=== PATIENT | male | born 1955 | race Caucasian/White ===

== ENCOUNTER 2019-02-14 01:25 | Outpatient (CLI) | payer MEDICARE, BC, SELFPAY ==
[2019-02-14 08:39] LABS: HGB 14.6 g/dL (13.5-17.5); Mean Corp. HGB Concentration 33.2 g/dL (32.0-36.0); Mean Corpuscular Hemoglobin 30.7 pg (27.0-33.0); Mean Corpuscular Volume 92.4 fL (80-95); Mean Platelet Volume 9.8 fL (8.0-11.0); Platelet Count 247 x1000/uL (130-400); RBC 4.76 m/cumm (4.50-6.00); RBC Distribution Width 12.9 % (11.8-14.1); White Blood Cell Count 5.77 k/cumm (4.4-10.8)
[2019-02-14 09:59] LABS: ALT 22 U/L (16-63); AST 12 U/L (15-37); Albumin 3.6 g/dL (3.4-5.0); Alkaline Phosphatase 64 U/L (46-116); Anion Gap 6.5 mmol/L (3-11); BUN 11 mg/dL (7-18); Bilirubin, Total 1.1 mg/dL (0.2-1.0); CO2 29.5 mmol/L (21.0-32.0); CREATININE 0.94 mg/dL (0.70-1.30); Calcium 8.9 mg/dL (8.5-10.1); Chloride 106 mmol/L (98-107); Glucose 91 mg/dL (74-106); Potassium 4.3 mmol/L (3.5-5.1); Sodium 142 mmol/L (136-145); Total Protein 6.6 g/dL (6.4-8.2)
[2019-02-14 10:10] LABS: Calculated LDL 123 mg/dL; Cholesterol 190 mg/dL (<200); HDL Cholesterol 43 mg/dL (40-60); Triglyceride 120 mg/dL (<150)
== END 2019-02-14 01:45 ==
PROVIDERS: PCP Family Medicine; Visit Provider Family Medicine
DX: Z00.00 Encounter for general adult medical examination without abnormal findings (principal); N20.0 Calculus of kidney; Z85.828 Personal history of other malignant neoplasm of skin; Z13.220 Encounter for screening for lipoid disorders
CPT/HCPCS: 36415; 80053; 80061; 85027

== ENCOUNTER 2021-03-02 19:17 | Outpatient (REF) | payer MEDICARE, BC, SELFPAY ==
[2021-03-02 21:38] LABS: MCH 29.9 pg (27.0-33.0); MCHC 31.9 % (32.0-36.0); MCV 93.6 fL (80-95); MPV 10.8 fL (8.0-11.0); Platelet Count 221 10^3/uL (130-400); RBC 5.02 10^6/uL (4.36-5.78); RDW 12.8 % (11.8-14.1); RDW-SD 43.5 fL; WBC 6.06 10^3/uL (4.4-10.8)
[2021-03-02 21:49] LABS: ALT 27 U/L (16-63); AST 14 U/L (15-37); Albumin 4.1 g/dL (3.4-5.0); Alkaline Phosphatase 78 U/L (46-116); Anion Gap 7.1 mmol/L (3-11); BUN 11 mg/dL (7-18); Bilirubin, Total 1.1 mg/dL (0.2-1.0); CO2 31.9 mmol/L (21.0-32.0); CREATININE 0.9 mg/dL (0.70-1.30); Calcium 9.1 mg/dL (8.5-10.1); Calculated LDL 130 mg/dL (<100); Chloride 103 mmol/L (98-107); Cholesterol 202 mg/dL (<200); Glucose 99 mg/dL (74-106); HDL Cholesterol 51 mg/dL (40-60); Potassium 4.3 mmol/L (3.5-5.1); Sodium 142 mmol/L (136-145); Total Protein 7.4 g/dL (6.4-8.2); Triglyceride 105 mg/dL (<150)
[2021-03-02 22:19] LABS: Vitamin D 25 Total 56.3 ng/mL (30-100)
== END 2021-03-02 19:18 | disposition home or self-care (01) ==
LOC: NCHCN 19:17
PROVIDERS: PCP Family Medicine; Visit Provider Family Medicine
DX: N40.0 Benign prostatic hyperplasia without lower urinary tract symptoms (principal); Z13.220 Encounter for screening for lipoid disorders
CPT/HCPCS: 80053; 80061; 82306; 85027

== ENCOUNTER 2022-09-22 15:23 | Outpatient (REF) | payer MEDICARE, BC, SELFPAY ==
[2022-09-22 22:30] LABS: HGB 14.6 g/dL (13.5-17.5); MCH 30.6 pg (27.0-33.0); MCHC 33.2 % (32.0-36.0); MCV 92 fL (80-95); Platelet Count 213 10^3/uL (130-400); RBC 4.77 10^6/uL (4.36-5.78); RDW-SD 44.2 fL; WBC 5.82 10^3/uL (4.4-10.8)
[2022-09-22 22:43] LABS: ALT 30 U/L (16-63); AST 15 U/L (15-37); Alkaline Phosphatase 66 U/L (46-116); BUN 14 mg/dL (7-18); CREATININE 0.9 mg/dL (0.70-1.30); Calculated LDL 125 mg/dL (<100); Chloride 105 mmol/L (98-107); Cholesterol 205 mg/dL (<200); Estimated GFR 93.03 (mL/min/1.73m2); Glucose 96 mg/dL (74-106); HDL Cholesterol 52 mg/dL (40-60); Potassium 4.2 mmol/L (3.5-5.1); Sodium 141 mmol/L (136-145); Total Protein 7.4 g/dL (6.4-8.2); Triglyceride 143 mg/dL (<150)
[2022-09-22 23:02] LABS: Vitamin D 25 Total 61.4 ng/mL (30-100)
== END 2022-09-22 15:24 | disposition home or self-care (01) ==
LOC: NCHCN 15:23
PROVIDERS: PCP Family Medicine; Visit Provider Nurse Practitioner Family
DX: Z13.220 Encounter for screening for lipoid disorders (principal); N40.0 Benign prostatic hyperplasia without lower urinary tract symptoms; E55.9 Vitamin D deficiency, unspecified
CPT/HCPCS: 80053; 80061; 82306; 85027

== ENCOUNTER 2023-10-05 17:14 | Outpatient (REF) | payer MEDICARE, BC, SELFPAY ==
[2023-10-05 16:05] LABS: HCT 45.1 % (40.0-50.0); HGB 14.8 g/dL (13.5-17.5); MCH 30.4 pg (27.0-33.0); MCHC 32.8 % (32.0-36.0); MCV 93 fL (80-95); MPV 10.8 fL (8.0-11.0); Platelet Count 205 10^3/uL (130-400); RBC 4.87 10^6/uL (4.36-5.78); RDW 12.8 % (11.8-14.1); RDW-SD 43.4 fL; WBC 6.66 10^3/uL (4.4-10.8)
[2023-10-05 16:27] LABS: ALT 35 U/L (16-63); AST 18 U/L (15-37); Albumin 3.8 g/dL (3.4-5.0); Alkaline Phosphatase 72 U/L (46-116); Anion Gap 7.5 mmol/L (3-11); BUN 10 mg/dL (7-18); CO2 29.5 mmol/L (21.0-32.0); CREATININE 0.9 mg/dL (0.70-1.30); Calcium 8.9 mg/dL (8.5-10.1); Calculated LDL 111 mg/dL (<100); Chloride 101 mmol/L (98-107); Cholesterol 181 mg/dL (<200); Estimated GFR 92.45 (mL/min/1.73m2); Glucose 97 mg/dL (74-106); HDL Cholesterol 57 mg/dL (40-60); Potassium 4.5 mmol/L (3.5-5.1); Sodium 138 mmol/L (136-145); Total Protein 7.1 g/dL (6.4-8.2); Triglyceride 67 mg/dL (<150)
[2023-10-06 08:37] LABS: PSA, Screening 0.8 ng/mL (<=4.5)
== END 2023-10-05 17:15 | disposition home or self-care (01) ==
LOC: NCHCN 17:14
PROVIDERS: PCP Family Medicine; Visit Provider Nurse Practitioner Family
DX: Z00.00 Encounter for general adult medical examination without abnormal findings (principal)
CPT/HCPCS: 80053; 80061; 84153; 85027

== ENCOUNTER 2024-01-23 15:40 | Outpatient (CLI) | payer MEDICARE, BC, SELFPAY ==
--- NOTE | 2024-01-23 | DI.RAD_ITS ---
Exam(s) XR CHEST 2V PA LATERAL EXAM: XR CHEST 2V PA LATERAL CLINICAL HISTORY: FEVER, R50.9,COUGH,NEG COVID TESTS TECHNIQUE: 2D digital imaging was performed. Two views. COMPARISON: No exams were available for comparison FINDINGS: HEART: Normal size. Aorta: Not dilated. PULMONARY VASCULATURE: Normal. MEDIASTINUM: Unremarkable. LUNGS: Infiltrate seen medial left lower lobe. The right lung appears clear. PLEURAL SPACE: No pleural effusion or pneumothorax. BONE:Unremarkable for age. SOFT TISSUES: Unremarkable. IMPRESSION: Left lower lobe pneumonia. DATA REPOSITORY: RADIATION DOSE DELIVERED:
--- OUTSIDE RECORDS SUMMARY | 2024-01-23 15:47 | XMS_ITS | Clinical Summary ---
Author Organization [facility] Address One [facility] [place] [address] Care Team Providers Care Ripper Operator Name Role Phone Belen Bhagat MORGAN Primary Care Provider [phone] Allergies Active Allergy Reactions Criticality Noted Date Comments Codeine 07/12/2012 Medications Medication Sig Dispensed Refills Start Date End Date Status finasteride (PROSCAR) 5 mg tablet Take 5 mg by mouth daily. Active VIT C/E/ZN/COPPR/LUTEI N/ZEAXAN (PRESERVISION AREDS 2 ORAL) Take by mouth 2 times daily. Active tamsulosin (Flomax) 0.4 mg capsule Take 1 capsule by mouth 2 times daily. 180 tablet 3 04/08/2023 Active Additional Information Patient taking differently: 0.8 mgOral 2 TIMES DAILY, Reported on 08/24/2023 Active Problems Problem Noted Date Diagnosed Date Renal stone 02/24/2017 History of basal cell carcinoma 12/23/2016 Open-angle glaucoma 08/27/2015 Assessment & Plan (04/15/2017 11:53 AM EST): Assessment: No progressive glaucoma damage on current medical therapy OCT not done today as line was way too long and already waited a long time Plan: Continue present meds: * Cosopt left eye 2 times daily * Xalatan left eye nightly * Lotemax left eye 2 times daily Follow-up in 6 more months with repeat Marie Visual Field and Optical Coherence Tomography - with Dr Payne's group back in [place] - we should have a new glaucoma provider here by the summer if needed in the future Follow-up with Dr Rubin to re-assess retina and make sure no tears in right eye since he had a retinal detachment in 2006 after that cataract surgery Assessment & Plan (10/27/2016 10:28 AM EDT): Assessment: No progressive glaucoma damage on current medical therapy Eye pressure higher than usual both eyes mostly likely due to prednisolone drops just stopped in right eye after cataract surgery Plan: Continue present meds: - Cosopt left eye 2 times daily, Xalatan left eye nightly, Lotemax left eye 2 times daily Follow-up in 6 more months with repeat Marie Visual Field and Optical Coherence Tomography Assessment & Plan (04/01/2016 5:34 PM EST): Assessment: No progressive glaucoma damage on current medical therapy Plan: Continue present meds Follow-up in 6 more months with repeat Marie Visual Field and Optical Coherence Tomography Assessment & Plan (10/10/2015 1:16 PM EDT): Assessment: POAG OS - less irritation after drop changes and IOP is much improved Plan: Continue current medications Follow up in 6 mos HVF / OCT Assessment & Plan (08/27/2015 3:19 PM EDT): Assessment: Glaucoma OS - eye irritation due to all drops Plan: D/C Combigan and start Cosopt BID OS, d/c Dorzolomide, d/c Lumigan and start Latanaprost OS qhs Continue Lotemax OS BID (may not need to be on Lotemax anymore if new drop regimen is successful with IOP control, will try to d/c at next visit) Pt states has tried Diamox in past - will not use due to hx of kidney stones Follow up in 6 wks IOP s/p med changes AK (actinic keratosis) 12/31/2014 Lower urinary tract symptoms (LUTS) 08/06/2014 Nephrolithiasis 08/06/2014 Visit for suture removal 12/27/2013 Basal cell carcinoma 07/25/2012 Dermatofibroma 07/12/2012 Encounters Date Type Department Care Team Description 12/06/2023 9:15 AM EDT Office Visit Dermatology at [address] [place] [id number] Cortez Bey MD Venous gray 12/06/2023 Travel from Last 3 Months Family History Medical History Relation Comments Cancer Father Cataracts Father Heart Disease Father Thyroid Disease Mother Retinal Detachment Sister Thyroid Disease Sister Amblyopia Neg Hx Diabetes Neg Hx Glaucoma Neg Hx Hypertension Neg Hx Macular Degeneration Neg Hx Relation Status Comments Father Mother Sister Social History Tobacco Use Types Packs/Day Years Used Date Smoking Tobacco: Never Smokeless Tobacco: Never Alcohol Use Standard Drinks/Week Comments Yes 0 (1 standard drink = 0.6 oz pur e alcohol) Sex and Gender Information Value Date Recorded Sex Assigned at Not on file Gender Identity Not on file Sexual Orientation Not on file Last Filed Vital Signs Vital Sign Reading Time Taken Comments Blood Pressure 123/78 08/24/2023 9:55 AM EDT Pulse 69 08/24/2023 9:55 AM EDT Temperature 36.7 ??C (98.1 ??F) 04/19/2017 1:33 PM ES T Respiratory Rate 16 02/24/2017 11:00 AM EST Oxygen Saturation 97% 04/19/2017 1:33 PM EST Inhaled Oxygen Concentration - - Weight 88.5 kg (195 lb) 02/24/2017 6:41 AM EST Height 185.4 cm (6' 1) 02/24/2017 6:41 AM EST Body Mass Index 25.73 02/24/2017 6:41 AM EST Plan of Treatment Upcoming Encounters Date Type Department Care Team (Late st Contact Info) Description 01/25/2025 8:15 AM EDT Office Visit Dermatology at [address] [place] [phone] Cortez Bey MD [address] [facility], [place] [address] Health Maintenance Due Date Last Done Comments CT Colonography 1955 Colonoscopy 1953 Colorectal Cancer Screening 1955 FIT DNA 1953 FIT 1955 Sigmoidoscopy (10 year) with FIT yearly 1955 Sigmoidoscopy 1955 Hepatitis C Screening 10/07/1971 Lipid Screening 10/07/1971 Tetanus/Diphtheria/Pertussis Vaccines (1 - Tdap) 10/06 Zoster vaccine (1 of 2) 10/07/2003 Advance Directive 2008 Pneumoccocal Vaccine: 65+ (1 of 1 - PCV) 2018 Covid-19 Vaccine (1 - season) 2023 Influenza (Flu) vaccine (1 o f 1 - Influenza standard series) 11/27/2023 Diabetes Screening (HgbA1C or Glucose) Discontinued Medical Devices Implanted Type Area Doctor Of Naturopathic Medicine Device Identifier Shelf Expiration Date Model / Serial / Lot Stent,Contour -[id number] cm ([id number]) - [id number] Implanted:Qty : 1 on 02/24/2017 by Shantanu Goodman Jr., MD at [facility] IMPLANTS Left: Ureter DO NOT USE [employer] - [id number] 10/02/2019 [facility]-600-R T1 / . / [id number] Procedures Procedure Name Priority Date/Time Associated Diagnosis Comments BASIC METABOLIC PANEL STAT 02/24/2017 6:26 AM EST Nephrolithiasis from Last 3 Months or Most Recently Relevant to Health Maintenance Results * Basic Metabolic Panel (non-fasting) (02/24/2017 6:26 AM EST) Glucose 96 65 - 199 mg/dL [facility] Comment:Diabetes: >=200 mg/d L plus symptoms Blood Urea Nitrogen 13 10 - 20 mg/dL [facility] Creatinine 0.91 0.80 - 1.50 mg/dL [facility] Sodium 141 135 - 145 mmol/L [facility] Potassium 4.1 3.5 - 5.0 mmol/L [facility] Comment: Please note: ??Patients with WBC >100,000 may have falsely elevated Potassium levels. ??For accurate Potassium quantification in these patients send serum separator tube (gold top) for subsequent determinations. ??Contact the Clinical Chemistry Laboratory if there are any questions. Chloride 101 98 - 107 mmol/L [facility] Carbon Dioxide 29 22 - 31 mmol/L [facility] Anion Gap 11 5 - 15 mmol/L [facility] Calcium 9.3 8.5 - 10.5 mg/dL [facility] Est Glomerular Filtration Rate >60 >=60 [facility] Comment: The reported eGFR should be multiplied by 1.2 for patients. The MDRD is not an appropriate measure of renal function for patients with body mass extremes or in patients with acute kidney failure. http://VipVenta/DHnkdep http://VipVenta/DHMCnkf Blood specimen (specimen) 02/24/2017 6:26 AM EST 02/24/2017 6:34 AM EST Narrative Resulting Agency Comment Spec In Lab Shantanu Goodman Jr., MD CHEMISTRY ORDERABL ES [facility] [place] [address] from Last 3 Months or Most Recently Relevant to Health Maintenance Advance Directives * Full Code (Latest Code Status on File) Date Activated Date Inactivated Comments 02/24/2017 6:28 AM 02/24/2017 3:01 PM Question Answer Comments Does patient have capacity to make decision: Yes Care Teams Ripper Operator Relationship Specialty Start Date End Date Belen Bhagat APRN [address] [place] [address] PCP - General Family Medicine 01/20/23
--- OUTSIDE RECORDS SUMMARY | 2024-01-23 15:47 | XMS_ITS ---
Author Organization [facility] Address One [facility] [place] [address] Care Team Providers Care Toggler Name Role Phone Belen Bhagat APRN Primary Care Provider [phone] Active Problems Problem Noted Date Diagnosed Date [...] - with Dr Payne's group back in [place] - we should have a new glaucoma [...] 12/27/2013 Basal cell carcinoma 07/25/2012 Dermatofibroma 07/12/2012 Current Oncology Plans No current plan information found. Past Plans No past plan information found. Radiation Treatments * No radiation treatments are documented for this patient in [facility]. Treatments may have been administered in another system. Lifetime Dose Tracking * Chemical Lifetime Dose Automatic Entry Manual Entr y DLP (Dose Length Product) 401 mGy-cm 401 mGy-cm 0 mGy-cm CTDI (CT Dose Index) Min 9.93 mGy 9.93 mGy 0 m Gy CTDI (CT Dose Index) Max 9.93 mGy 9.93 mGy 0 m Gy
--- OUTSIDE RECORDS SUMMARY | 2024-01-23 15:48 | XMS_ITS | Encounter Summary ---
Author Organization [facility] Address [place] [address] Care Team Providers Care Rn Float Name Role Phone Susan Fernández MD Primary Care Provider [phone] Encounter Details Date Type Department Care Team (Latest Contact Info) Description 10/27/2016 1:14 PM EDT - 10/27/2016 11:59 PM EDT Hospital En[place] [address] Carley Goodman Jr., MD [facility] [place] [address] Nephrolithiasis Discharge Disposition: Home Social History Tobacco Use Types Packs/Day Years Used Date Smoking Tobacco: Never Alcohol Use Standard Drinks/Week Comments Yes 0 (1 standard drink = 0.6 oz pur e alcohol) Sex and Gender Information Value Date Recorded Sex Assigned at Not on file Gender Identity Not on file Sexual Orientation Not on file documented as of this encounter Medications at Time of Discharge Medication Sig Dispensed Refills Start Date End Date finasteride (PROSCAR) 5 mg tablet Take 5 mg by mouth daily. cephalexin (KEFLEX) 500 mg Capsule Take 1 capsule by mouth 4 times daily for 3 days. 12 capsule 02/24/2017 02/27/2017 oxyCODONE (ROXICODONE) 5 mg Tablet Take 1 tablet by mouth every 4 hours as needed for Pain. 30 tablet 02/24/2017 04/15/2017 gatifloxacin (ZYMAXID) 0.5 % Drops INSTILL 1 DROP IN THE RIGHT EYE FOUR TIMES A DAY 0 09/04/2016 02/23/2017 ketorolac tromethamine (ACULAR) 0.5 % Drops 09/03/2016 017 prednisoLONE acetate (PRED FORTE) 1 % Drops, Suspension 09/03/2016 02/23/2017 latanoprost (XALATAN) 0.005 % DropsIndications:Primary open angle glaucoma of left eye, mild stage Place 1 drop into the left eye nightly. 2.5 mL 11 09/01/2016 01/20/2023 dorzolamide-timolol (COSOPT) 22.3-6.8 mg/mL DropsIndications:Primary open-angle glaucoma, left eye, mild stage Place 1 drop into the left eye 2 times daily. 20 mL 11 04/01/2016 05/22/2017 loteprednol (LOTEMAX) 0.5 % Drops, Suspension Place 1 drop into the left eye 2 times daily. 10 mL 3 04/01/2016 05/22/2017 tamsulosin (FLOMAX) 0.4 mg capsule Take 0.4 mg by mouth daily. 04/25/2002 01/20/2023 documented as of this encounter Plan of Treatment Upcoming Encounters Date Type Department Care Team (Late st Contact Info) Description 01/25/2025 8:15 AM EDT Office Visit Dermatology at [place] [address] [facility] [place] [address] Cortez Bey MD [address] [facility] [address], [place] [address] documented as of this encounter Procedures Procedure Name Priority Date/Time Associated Diagnosis Comments US RETROPERITONEAL COMPLETE Routine 10/27/2016 2:10 PM EDT Nephrolithiasis documented in this encounter Results * US Retroperitoneal Complete (10/27/2016 2:10 PM EDT) Anatomical Region Laterality Modality Abdomen Ultrasound 10/27/2016 2:06 PM EDT Impressions 10/27/2016 3:04 PM EDT ??1. Multiple nonobstructing calculi seen in the left kidney, the largest of whichmeasures 1.8 2. No renal calculi seen in the right kidney.3. Incidental right hepatic lobe simple cyst. I have personally reviewed the image(s) and the residents interpretation andagree with the findings, Eliseo Truong at 10/27/2016 2:56 PM ? Eliseo Truogn MD Electronically Signed Final Report ?? 10/27/2016 03:03 pm Narrative 10/27/2016 3:04 PM EDT Renal ? (Signed Final 10/27/2016 03:03 pm) PATIENT INFO: ID #: ? [id number] ?: ??[birth year] (61 yrs) Name: ? JERAD JAUREGUI ? Visit Date: 10/27/2016 02:06 pm PERFORMED BY: Performed By: ? Kristian Perez RDMS Attending: ?Alexi CARIAS, Eliseo Ko. Resident: ? Sumeet Levy MD Referred By: ?CARLEY GOODMAN Location: ? [place] SERVICE(S) PROVIDED: ??URETRO - Retroperitoneal Complete - [id number] ? [id number] INDICATIONS: ??? stones COMPARISON: Prior CT Scan (03/16/16) and prior US (09/01/2015). RIGHT KIDNEY: Size (cm) ?L: ??10.5 Cortical Thickness: ?Normal Cortical Echogenicity: ?? Normal Hydronephrosis: ?No sonographic evidence LEFT KIDNEY: Size (cm) ?L: ??10.4 Cortical Thickness: ?Normal Cortical Echogenicity: ?? Normal Hydronephrosis: ?No sonographic evidence Comment: ?Two non-obstructing renal calculi seen, largest ? measuring 19 mm seen in the mid pole.. URINARY BLADDER: Pre-void (cm) ? L: ??3.1 ? AP: ??2.3 ? TV: ??4.7 Vol (ml): ?17.5 Comment: ?Not distended, limited views. ADDITIONAL FINDINGS: Simple liver cyst seen in the right lobe measuring 1.6 x 1.6 x 1.5 cm. Procedure Note Eliseo Truong MD - 10/27/2016 Renal (Signed Final 10/27/2016 03:03 pm) PATIENT INFO: ID #: [id number] : [birth year] (61 yrs) Name: JERAD JAUREGUI Visit Date: 10/27/2016 02:06 pm PERFORMED BY: Performed By: Kristian Perez RDMS Attending: Eliseo Truong MD Resident: Sumeet Levy MD Referred By: CARLEY GOODMAN JR Location: [place] SERVICE(S) PROVIDED: URETRO - Retroperitoneal Complete - [id number] INDICATIONS: ? stones COMPARISON: Prior CT Scan (03/16/16) and prior US (09/01/2015). RIGHT KIDNEY: Size (cm) L: 10.5 Cortical Thickness: Normal Cortical Echogenicity: Normal Hydronephrosis: No sonographic evidence LEFT KIDNEY: Size (cm) L: 10.4 Cortical Thickness: Normal Cortical Echogenicity: Normal Hydronephrosis: No sonographic evidence Comment: Two non-obstructing renal calculi seen, largest measuring 19 mm seen in the mid pole.. URINARY BLADDER: Pre-void (cm) L: 3.1 AP: 2.3 TV: 4.7 Vol (ml): 17.5 Comment: Not distended, limited views. ADDITIONAL FINDINGS: Simple liver cyst seen in the right lobe measuring 1.6 x 1.6 x 1.5 cm. IMPRESSION 1. Multiple nonobstructing calculi seen in the left kidney, the largest of whichmeasures 1.8 2. No renal calculi seen in the right kidney.3. Incidental right hepatic lobe simple cyst. I have personally reviewed the image(s) and the residents interpretation andagree with the findings, Eliseo Truong at 10/27/2016 2:56 PM Eliseo Truong MD Electronically Signed Final Report 10/27/2016 03:03 pm Carley Goodman Jr., MD IMG GEN ORDERAB LES documented in this encounter Visit Diagnoses Diagnosis Nephrolithiasis Calculus of kidney documented in this encounter Care Teams Rn Float Relationship Specialty Start Date End Date Susan Fernández MD [address] [place] [address] PCP - General Family Medicine 10/27/16 01/19/23 documented as of this encounter
--- OUTSIDE RECORDS SUMMARY | 2024-01-23 15:48 | XMS_ITS | Encounter Summary ---
[facility] [place] [address] Care Team Providers Care Senior Application Security Consultant Name Role Phone Froy Monroe MD Primary Care Provider + Reason for Visit * Reason Comments Chronic Open Angle Glaucoma 6 mo ck Encounter Details Date Type Department Care Team (Late st Contact Info) Description 04/01/2016 3:15 PM EST Office [place] [address] Giles Fitzgerald MD [facility] [place] [address] Primary open angle glaucoma of left eye, mild stage (Primary Dx); Primary open-angle glaucoma, left eye, mild stage Social History Tobacco Use Types Packs/Day Years Used Date Smoking Tobacco: Never Alcohol Use Standard Drinks/Week Comments Yes 0 (1 standard drink = 0.6 oz pur e alcohol) Sex and Gender Information Value Date Recorded Sex Assigned at Not on file Gender Identity Not on file Sexual Orientation Not on file documented as of this encounter Patient Instructions * Patient Instructions* Giles Fitzgerald MD - 04/01/2016 3:15 PM EST HPI Chronic Open Angle Glaucoma Additional comments: 6 mo ck Comments Patient here today for 6 month glaucoma check (Primary Open Angle Glaucoma) Patient reports no visual complaints at today's visit Currently using: cospot left eye 2 x daily, ( last put in at 7am), lotemax left eye 2 x daily (lastput in at 8am), latanoprost left eye nightly (last put in in at 9pm last night) - needs refills Denies eye pain Last edited by Giles Fitzgerald MD on 04/01/2016 5:30 PM. (History) Open-angle glaucoma Assessment: No progressive glaucoma damage on current medical therapy Plan: Continue present meds Follow-up in 6 more months with repeat Marie Visual Field and Optical Coherence Tomography For additional information about eye conditions, visit the Eye Facts portion of my website at http://Fever/eye-education/ and I also started a Glaucoma Patient Group on StormMQ (htt [email or web address]/[email or web address]) for patients to seek help from one another. (Search for Glaucoma Patient Group and then ask to join.) documented in this encounter Progress Notes * Giles Fitzgerald MD - 04/01/2016 3:15 PM EST Open-angle glaucoma Assessment: No progressive glaucoma damage on current medical therapy Plan: Continue present meds Follow-up in 6 more months with repeat Marie Visual Field and Optical Coherence Tomography documented in this encounter Miscellaneous Notes * Assessment & Plan Note - Giles Fitzgerald MD - 04/01/2016 5:34 PM EST Associated Problem(s): Open-angle glaucoma Assessment: No progressive glaucoma damage on current medical therapy Plan: Continue present meds Follow-up in 6 more months with repeat Marie Visual Field and Optical Coherence Tomography documented in this encounter Plan of Treatment Upcoming Encounters Date Type Department Care Team (Late st Contact Info) Description 01/25/2025 8:15 AM EDT Office Visit Dermatology at [place] [address] [facility] [place] [address] Cortez Bey MD [address], [place] [address] Pending Results Name Type Priority Associated Diagnoses Date /Time AUTOMATED VISUAL FIELD - EXTENDED - OD - RIGHT EYE Ophthalmology Routine Primary open angle glaucoma of left eye, mild stage 04/01/2016 5:26 PM EST OCT OPTIC [id number] EYES Ophthalmology Routine Primary open angle glaucoma of left eye, mild stage 04/01/2016 5:27 PM EST documented as of this encounter Visit Diagnoses Diagnosis Primary open angle glaucoma of left eye, mild stage- Primary Primary open-angle glaucoma, left eye, mild stage documented in this encounter Care Teams Senior Application Security Consultant Relationship Specialty Start Date End Date ColbydiFroy acrdona MD [address] [place] [address] PCP - General 02/17/10 10/26/16 documented as of this encounter
--- OUTSIDE RECORDS SUMMARY | 2024-01-23 15:48 | XMS_ITS | Encounter Summary ---
Author Organization [facility] Address [facility] [place] [address] Care Team Providers Care Nutrition Services Aide Name Role Phone Susan Fernández MD Primary Care Provider [phone] Reason for Visit * Reason Comments Chronic Open Angle Glaucoma 6 mo glaucom a ck Encounter Details Date Type Department Care Team (Late st Contact Info) Description 10/27/2016 8:30 AM EDT Office [place] [address] Giles Fitzgerald MD [facility] [place] [address] Primary open angle glaucoma of left eye, mild stage (Primary Dx) Social History Tobacco Use Types Packs/Day Years [...] * Patient Instructions* Giles Fitzgerald MD - 10/27/2016 8:30 AM EDT HPI Chronic Open Angle Glaucoma Additional comments: 6 mo glaucoma ck Comments Patient here for 6 month glaucoma check, Chronic Open Angle Glaucoma Patient reports of cataract surgery right eye with Dr Payne on 09/29/16, with good results Denies eye pain Current drops: Cosopt left eye 2 times daily, (last used, 630am today); Xalatan left eye nightly, (last used, 10pm yesterday); Lotemax left eye 2 times daily, (last used, 6am today) Last edited by Giles Fitzgerald MD on 10/27/2016 10:05 AM. (History) Open-angle glaucoma Assessment: No progressive glaucoma [...] Eye Facts portion of my website at http://GitHub.BitInstant/eye-education/ and I also started a Glaucoma Patient Group on Crowder[employer] (htt ps://Traveler | [email or web address]/groups/[email or web address]) for patients to seek help from one another. (Search for Glaucoma Patient Group and then ask to join.) documented in this encounter Progress Notes * Giles Fitzgerald MD - 10/27/2016 8:30 AM EDT Open-angle glaucoma Assessment: No progressive glaucoma damage [...] Plan Note - Giles Fitzgerald MD - 10/27/2016 10:05 AM EDT Associated Problem(s): Open-angle glaucoma Assessment: No progressive [...] 8:15 AM EDT Office Visit Dermatology at [place] [address] [place] [address] Cortez Bey MD [address], [place] [address] documented as of this encounter Procedures Procedure Name Priority Date/Time Associated Diagnosis Comments OCT OPTIC NERVE - OD - RIGHT EYE Routine 10/27/2016 10:26 AM EDT Primary open angle glaucoma of left eye, mild stage AUTOMATED VISUAL FIELD - EXTENDED - OD - RIGHT EYE Routine 10/27/2016 10:26 AM EDT Primary open angle glaucoma of left eye, mild stage documented in this encounter Results * OCT OPTIC NERVE - OD - RIGHT EYE (10/27/2016 10:26 AM EDT) Anatomical Region Laterality Modality Other Narrative 10/27/2016 10:26 AM EDT Quality was good. Notes Optic nerve report G = 101 OD within normal limits OD Posterior pole report OD-OS asymmetry: n/a Hemisphere asymmetry: thinner inferiorly vs superiorly Giles Fitzgerald MD OPHTHALMOLOGY SERV ICES ORDERABLES * AUTOMATED VISUAL FIELD - EXTENDED - OD - RIGHT EYE (10/27/2016 10:26 AM EDT) Anatomical Region Laterality Modality Other Narrative 10/27/2016 10:26 AM EDT Threshold was 24-2. Strategy was KIERSTEN. Reliability was poor. Notes Visual Field Results Glaucoma Hemifield Test (GHT) OD: within normal limits Visual Function Index (VFI) OD: 99 % MD OD: -0.19 dB ? PSD OD: 1.79 dB Interpretation: normal Giles Fitzgerald MD OPHTHALMOLOGY SERV ICES ORDERABLES documented in this encounter Visit Diagnoses Diagnosis Primary open angle glaucoma of left eye, mild stage- Primary documented in this encounter Care Teams Nutrition Services Aide Relationship Specialty Start Date End Date Susan Fernández MD [address] [place] [address] PCP - General Family Medicine 10/27/16 01/19/23 documented as of this encounter"
--- OUTSIDE RECORDS SUMMARY | 2024-01-23 15:48 | XMS_ITS | Encounter Summary ---
Author Organization [facility] [place] [address] Care Team Providers Care Stringing Machine Tender Name Role Phone Belen Bhagat APRN Primary Care Provider [phone] Encounter Details Date Type Department Care Team (Latest Contact Info) Description 01/20/2023 Travel Social History Tobacco Use Types Packs/Day Years Used Date Smoking Tobacco: Never Smokeless Tobacco: Never Alcohol Use Standard Drinks/Week Comments Yes 0 (1 standard drink = 0.6 oz pur e alcohol) Sex and Gender Information Value Date Recorded Sex Assigned at Not on file Gender Identity Not on file Sexual Orientation Not on file documented as of this encounter Plan of Treatment Upcoming Encounters Date Type Department Care Team (Late st Contact Info) Description 01/25/2025 8:15 AM EDT Office Visit Dermatology at [place] [address] [facility] [place] [id number] Cortez Bey MD [address] [facility], [place] [address] documented as of this encounter Visit Diagnoses Not on filedocumented in this encounter Care Teams Stringing Machine Tender Relationship Specialty Start Date End Date Belen Bhagat APRN [address] [place] [address] PCP - General Family Medicine 01/20/23 documented as of this encounter
--- OUTSIDE RECORDS SUMMARY | 2024-01-23 15:48 | XMS_ITS | Encounter Summary ---
Author Organization [facility] [place] [address] Care Team Providers Care Odd Job Laborer Name Role Phone Susan Fernández MD Primary Care Provider [phone] Reason for Visit * Auth/Cert Specialty Diagnoses / Procedures Referred By Jeannie barker Referred To Contact Diagnoses Renal stone left renal stone Procedures PRO PERCUT REMV KID STONE, 2+ CM PRO PERCUT DILATN RENAL TRACT PRO CYSTOURETHROSCOPY, URETER CATHETER PRO CYSTO/URETERO/PYELOSCOPY, DX NEPHROLITHOTOMY, (PCNL) PERCUTANEOUS, OVER 2CM (WRVU 23.5) PERCUTANEOUS INTRO GUIDE WIRE TO ACCESS RENAL PELVIS,AND OR URETER, W\DILATION (WRVU 3.37) CYSTO, RETROGRADE, URETEROPYELOGRAPHY, W/PCNL (WRVU 2.37) CYSTOURETEROSCOPY, DIAGNOSTIC (WRVU 5.75) MODIFIER HOLMIUM LASER Referral ID Status Reason Start Date Expiration Date Visits Re quested Visits Authorized [id number] 1 1 Encounter Details Date Type Department Care Team (Late st Contact Info) Description 02/24/2017 7:26 AM EST Anesthesia Event [place] [phone] Margot Lewis MD [facility] [place] [address] Nathan Zpaata MD [facility] [place] [address] Anesthesia Record Procedure Summary Procedure Name Responsible Anesthesiologist Anesthesia Start Time Anesthesia Stop Time CYSTOURETEROSCOPY,DERECK GNOSTIC,W/ LITHOTRIPSY INC. INSERTION OF INDWELLING URETERAL STENT (WRVU 8) (Left: Flank) Margot Lewis MD 02/24/17 0726 02/24/17 1038 Events Date Time Event Comment 02/24/2017 0716 0726 AN Verify 0726 Start 0726 An Start Data 0735 An Induction 0741 An Intubation 0751 Anesthesia Ready 0830 Procedure Start 0905 Break/Relief In MARGOT YOUSIF MD 1029 Extubation/LMA Out 1029 an stop data 1036 Recovery or ICU Handoff Ny ent care was transferred to the destination unit staff after review of the patient's medical history, current anesthetic/surgical status and plan, according to the Provider Handoff Checklist. 1038 Stop Meds Name Total Midazolam 2 mg fentaNYL 125 mcg IV Lidocaine 40 mg Propofol 250 mg Rocuronium 50 mg Ondansetron 4 mg Dexamethasone 4 mg Neostigmine 4 mg Glycopyrrolate 0.8 mg ampicillin 2g vial attach to sodium chlo ride 0.9% 100 mL Mini-Bag Plus 2 g gentamicin (GARAMYCIN) 166.8 mg in sodiu m chloride 0.9% 104.17 mL 166.6 mg lactated Ringers infusion 1,000 mL 900 m L Lactated Ringers 100 mL * Agents Name O2 Air N2O Sevoflurane (et) * Blood No blood administrations on file. Lines, Drains, and Airways Type Details Placement Removal (RETIRED) Peripheral IV Line - Single Lumen 01/24/15; 1040; basilic vein right (medial side of arm); pvam-mqr-dhvpfy catheter system; 20 gauge, 1 in length; intradermal injection; 07/11/17 (Auto removal via utility); 0921 (Auto removal via utility) 01/24/15 1040 by Whitney Reyes RN 07/11/17 0921 by Lianne, User (RETIRED) Peripheral IV Line - Single Lumen 02/24/17; 0722; metacarpal vein (top of hand), left; gxqu-cfy-trfyrv catheter system; 18 gauge; RM; intradermal injection, tolerated well; 02/24/17; 1141 02/24/17 0722 by Courtney Chan RN 02/24/17 1141 by Ruba Cabrera RN ETT Mask Ventilation: Ea newton (1); ETT Type: Cuffed, Oral; ETT Size: 7.5 mm; Mac Blade: 3; Notes: Asleep, Pre-O2, Cricoid Pressure, Stylette; Attempts: 2; Laryngoscopy Grade: 3; ETT Placement Verified By: Auscultation, Capnometry, Visual; Secured at Teeth: 21 cm; Inserted by: Benny; Removal Date: 02/24/17; Removal Time: 1029 02/24/17 0746 by Nathan Zapata MD 02/24/17 1029 by Nathan Zapata MD (RETIRED) Peripheral IV Line - Single Lumen 02/24/17; 0759; metacarpal vein (top of hand), right; qzpe-jhi-fimbhu catheter system; 18 gauge; Benny; 02/24/17; 1142 02/24/17 0759 by Nathan Zapata MD 02/24/17 1142 by Ruba Cabrera RN documented in this encounter Social History Tobacco Use Types Packs/Day Years Used Date Smoking Tobacco: Never Smokeless Tobacco: Never Alcohol Use Standard Drinks/Week Comments Yes 0 (1 standard drink = 0.6 oz pur e alcohol) Sex and Gender Information Value Date Recorded Sex Assigned at Not on file Gender Identity Not on file Sexual Orientation Not on file documented as of this encounter OR Notes * Anesthesia Postprocedure Evaluation - Nathan Zapata - 02/24/2017 10:38 AM EST [facility] Department of Anesthesiology Post-procedure Note Patient: Jerad Jauregui Procedure Summary Date Anesthesia Start Anesthesia Stop Room / Location 02/24/[address] [place] [address] OR / [facility] MAIN OR Procedure Diagnosis Surgeon Responsible Provider CYSTOURETEROSCOPY,DIAGNOSTIC,W/ LITHOTRIPSY INC. INSERTION OF INDWELLING URETERAL STENT (WRVU 8) (Left Flank); MODIFIER HOLMIUM LASER (Left Flank); FLUOROSCOPY (WRVU 0.17) (Left Flank); INJ FOR NEPHROSTOGRAM/URETEROGRAM, INC IMG GUIDANCE; NEW ACCESS (WRVU 3.15) (Left Flank); PERCUTANEOUS INTRO GUIDE WIRE TO ACCESS RENAL PELVIS,AND OR URETER, W\DILATION (WRVU 3.37) (Left Flank) (left renal stone )Shantanu Goodman Jr., MD Procopio, Marcia A, MD All Anesthesia Providers: Anesthesiologist: Margot Lewis MD Campus Chaplain: Nathan Zapata MD Most Recent Vitals: 02/24/17 1035 BP: 124/77 Pulse: Resp: 16 Temp: SpO2: 99% Pain 0 (02/24/17 1035) Patient Location: PACU/[facility] Level of Consciousness: Conscious but Sleepy Pain Management: Satisfactory Analgesia PONV: None Cardiovascular Status: At Baseline and Hemodynamically Stable Respiratory Status: At Baseline and Supplemental O2 (NC or FM) Postoperative Fluid Status: Intravascular EUvolemia Possible Anesthetic Complications: NONE apparent at time of evaluation Final Primary Anesthesia Type: General (The anesthetic type performed was the same as planned.) Comments: Nathan Zapata MD * Anesthesia Preprocedure Evaluation - Nathan Zapata - 02/23/2017 2:51 PM EST Pre-Anesthesia Evaluation for: Jerad Jauregui a 61 y.o. male. Procedure(s): NEPHROLITHOTOMY, (PCNL) PERCUTANEOUS, OVER 2CM (WRVU 23.5) PERCUTANEOUS INTRO GUIDE WIRE TO ACCESS RENAL PELVIS,AND OR URETER, W\DILATION (WRVU 3.37) CYSTO, RETROGRADE, URETEROPYELOGRAPHY, W/PCNL (WRVU 2.37) CYSTOURETEROSCOPY, DIAGNOSTIC (WRVU 5.75) MODIFIER HOLMIUM LASER Patient Active Problem List Diagnosis ??? History of basal cell carcinoma ??? Open-angle glaucoma ??? AK (actinic keratosis) ??? Lower urinary tract symptoms (LUTS) ??? Nephrolithiasis ??? Visit for suture removal ??? Basal cell carcinoma ??? Dermatofibroma Past Medical History: Diagnosis Date ??? Allergic state ??? Arthritis ??? Cancer ??? Cataract ??? Chronic kidney disease ??? Glaucoma ??? Retinal detachment ??? Skin disease Past Surgical History: Procedure Laterality Date ??? CATARACT REMOVAL OS ??? CATARACT REMOVAL Right 09/29/2016 Dr Payne ??? LASER SURGERY OS multiple sessions for ret tear ??? PRO FRAGMENT KIDNEY STONE/ ESWL Left 01/24/2015 ESylviaSSylviaWSylviaLSylvia performed by Shantanu Goodman Jr., MD at [facility] ??? RETINAL DETACHMENT SURGERY PPV x2 Social History Substance Use Topics ??? Smoking status: Never Smoker ??? Smokeless tobacco: Never Used ??? Alcohol use Yes History Drug Use Not on file Allergies Allergen Reactions ??? Codeine Medications: MAR and/or home medications have been reviewed. Physical Exam: There were no vitals filed for this visit. There is no height or weight on file to calculate BMI. Airway Assessment: Mallampati: II TM distance: >3 FB Neck ROM: full Cardiovascular Assessment: cardiovascular exam normal Pulmonary Assessment: pulmonary exam normal Dental Assessment: - normal exam Misc Assessment: Patient is wearing No contact(s). IV access: A-line Anesthesia Plan: ASA 2 general, with a(n) intravenous induction 61 yo male with nonobstructive nephrolithiasis refractory to SWL, here for LEFT PCNL and ureteroscopy. PMH otherwise significant for BPH, glaucoma. Chart review negative for cardiac, pulm, hepatic disease, GERD, or coagulopathies. No indication of significantly decreased renal function. Never smoker. Meds and allergies reviewed. Tolerated GA/LMA for SWL. Plan pre-op tylenol. GA with ETT. Standard ASA monitors. Adequate IV access. Region - Other Informed Consent: PAT Staff Note documented in this encounter Plan of Treatment Upcoming Encounters Date Type Department Care Team (Late st Contact Info) Description 01/25/2025 8:15 AM EDT Office Visit Dermatology at [place] [address] [facility] [address] [place] [phone] Cortez Bey MD [address], [place] [address] documented as of this encounter Visit Diagnoses Not on filedocumented in this encounter Administered Medications Inactive Administered Medications - up to 3 most recent administrations Medication Order MAR Action Action Date Dose Rate Site ampicillin 2g vial attach to sodium chloride 0.9% 100 mL Mini-Bag Plus 2,000 mg (2 g), Intravenous, [employer] 1 dose, On Dagmar 02/24/17 at 0715, Administer over 15 Minutes, Day of Surgery (Day of Procedure), Indication for (Active or Suspected): Prophylaxis New Bag 02/24/2017 7:51 AM EST 2 g dexamethasone (DECADRON) injection PRN, Starting on Dagmar 02/24/17 at 0750, Until Dagmar 02/24/17 at 1038, Anesthesia Intra-op, Routine Given 02/24/2017 7:50 AM EST 4 mg fentaNYL 50 mcg/mL multi-dose injection PRN, Starting on Dagmar 02/24/17 at 0735, Until Dagmar 02/24/17 at 1038, Pain, Anesthesia Intra-op, Routine Given 02/24/2017 9:51 AM EST 25 mcg Given 02/24/2017 8:28 AM EST 50 mcg Given 02/24/2017 7:35 AM EST 50 mcg gentamicin (GARAMYCIN) 166.8 mg in sodium chloride 0.9% 104.17 mL 166.8 mg (rounded from 166.6 mg = 2 mg/kg/dose ? 83.3 kg Adjusted weight), Intravenous, 60 MIN PRE-OP, 1 dose, On Dagmar 02/24/17 at 0715, Administer over 60 Minutes, Day of Surgery (Day of Procedure), Indication for (Active or Suspected): Prophylaxis New Bag 02/24/2017 7:51 AM EST 2 mg/kg/hr 104 mL/ hr glycopyrrolate (ROBINUL) multi-dose injection PRN, Starting on Dagmar 02/24/17 at 1004, Until Dagmar 02/24/17 at 1038, Anesthesia Intra-op, Routine Given 02/24/2017 10:04 AM EST 0.8 mg lactated Ringers infusion CONTINUOUS PRN, Starting on Dagmar 02/24/17 at 0804, Until Dagmar 02/24/17 at 1038, Anesthesia Intra-op New Bag 02/24/2017 8:04 AM EST lidocaine (PF) (XYLOCAINE) 100 mg/5 mL (2 %) injection PRN, Starting on Dagmar 02/24/17 at 0735, Until Dagmar 02/24/17 at 1038, Anesthesia Intra-op, Routine Given 02/24/2017 7:35 AM EST 40 mg midazolam (PF) (VERSED) 1 mg/mL multi-dose injection PRN, Starting on Dagmar 02/24/17 at 0726, Until Dagmar 02/24/17 at 1038, Sleep, Anesthesia Intra-op, Routine Given 02/24/2017 7:26 AM EST 2 mg neostigmine (BLOXIVERZ) injection PRN, Starting on Dagmar 02/24/17 at 1004, Until Dagmar 02/24/17 at 1038, Anesthesia Intra-op, Routine Given 02/24/2017 10:04 AM EST 4 mg ondansetron (ZOFRAN) injection PRN, Starting on Dagmar 02/24/17 at 1004, Until Dagmar 02/24/17 at 1038, Nausea, Anesthesia Intra-op, Routine Given 02/24/2017 10:04 AM EST 4 mg propofol (DIPRIVAN) 10 mg/mL bolus injection (Anesthesia) PRN, Starting on Dagmar 02/24/17 at 0735, Until Dagmar 02/24/17 at 1038, Anesthesia Intra-op Given 02/24/2017 7:39 AM EST 50 mg Given 02/24/2017 7:35 AM EST 200 mg rocuronium (ZEMURON) multi-dose injection PRN, Starting on Dagmar 02/24/17 at 0736, Until Dagmar 02/24/17 at 1038, Anesthesia Intra-op, Routine Given 02/24/2017 7:36 AM EST 50 mg documented in this encounter Care Teams Odd Job Laborer Relationship Specialty Start Date End Date Susan Fernández MD [address] [place] [address] PCP - General Family Medicine 10/27/16 01/19/23 documented as of this encounter
--- OUTSIDE RECORDS SUMMARY | 2024-01-23 15:48 | XMS_ITS | Encounter Summary ---
Author Organization [facility] Address [facility] [place] [address] Care Team Providers Care Television Schedule Coordinator Name Role Phone Susan Fernández MD Primary Care Provider [phone] Reason for Visit * Reason Comments Medication Refill Encounter Details Date Type Department Care Team (Late st Contact Info) Description 05/22/2017 [place] [address] Giles Fitzgerald MD [facility] [address] O[place] [address] Primary open-angle glaucoma, left eye, mild stage [...] on file documented as of this encounter Miscellaneous Notes * Telephone Encounter - Kathya Edwards COT - 05/23/2017 8:44 AM EST Giles Fitzgerald MD at 04/15/2017 10:30 AM ? Author Type: Physician Status: Addendum Sub Acute Care Nurse: Giles Fitzgerald MD (Physician) ?? Open-angle glaucoma Assessment: No progressive glaucoma damage on current medical therapy OCT not done today as line was way too long and already waited a long time ?? Plan: Continue present meds: * Cosopt left eye 2 times daily * Xalatan left eye nightly * Lotemax left eye 2 times daily Follow-up in 6 more months with repeat [facility] Optical Coherence Tomography - with Dr Payne's group back in [place] - we should have a new glaucoma provider here by the summer if needed in the future Follow-up with Dr Rubin to re-assess retina and make sure no tears in right eye since he had a retinal detachment in 2006 after that cataract surgery documented in this encounter Plan of Treatment Upcoming Encounters Date Type Department Care Team (Late st Contact Info) Description 01/25/2025 8:15 AM EDT Office Visit Dermatology at [place] [address] [facility] [place] [address] Cortez Bey MD [address] [address], [place] [address] documented as of this encounter Visit Diagnoses Diagnosis Primary open-angle glaucoma, left eye, mild stage documented in this encounter Care Teams Television Schedule Coordinator Relationship Specialty Start Date End Date Susan Fernández MD [address] [place] [address] PCP - General Family Medicine 10/27/16 01/19/23 documented as of this encounter
--- OUTSIDE RECORDS SUMMARY | 2024-01-23 15:48 | XMS_ITS | Encounter Summary ---
Author Organization [facility] Address [facility] [place] [address] Care Team Providers Care Psychiatric Np Name Role Phone Susan Fernández MD Primary Care Provider Encounter Details Date Type Department Care Team (Late st Contact Info) Description 03/04/2021 [place] [address] Shantanu Goodman Jr., MD [facility] [place] [address] Social History Tobacco Use Types Packs/Day Years [...] encounter Miscellaneous Notes * Telephone Encounter - Sheila Rivas - 03/04/2021 9:39 AM EST PHONE: [phone] Pt calls to schedule [address] order is not in, could this be placed please? documented in this encounter Plan of Treatment Upcoming Encounters Date Type Department Care Team (Late st Contact Info) Description 01/25/2025 8:15 AM EDT Office Visit Dermatology at [place] [address] [facility] [place] [address] Cortez Bey MD [address] [facility] [address], [place] [address] documented as of this encounter Visit Diagnoses Not on filedocumented in this encounter Care Teams Psychiatric Np Relationship Specialty Start Date End Date Susan Fernández MD [address] [place] [address] PCP - General Family Medicine 10/27/16 01/19/23 documented as of this encounter
--- OUTSIDE RECORDS SUMMARY | 2024-01-23 15:48 | XMS_ITS | Encounter Summary ---
Author Organization [facility] Address [facility] [place] [address] Care Team Providers Care Steel Pourer Name Role Phone Susan Fernández MD Primary Care Provider [phone] Encounter Details Date Type Department Care Team (Late Contact Info) Description 02/10/2017 [place] [address] Shantanu Goodman Jr., MD [facility] [place] [address] Social History Tobacco Use Types Packs/Day Years [...] encounter Miscellaneous Notes * Telephone Encounter - Ana Dempsey RN - 02/10/2017 5:34 PM EST Negative urine culture from [facility]. Letter mailed to patient. documented in this encounter Plan of Treatment Upcoming Encounters Date Type Department Care Team (Late st Contact Info) Description 01/25/2025 8:15 AM EDT Office Visit Dermatology at [address] [address] Cortez Bey MD [address] [facility] [address], [place] [address] documented as of this encounter Visit Diagnoses Not on filedocumented in this encounter Care Teams Steel Pourer Relationship Specialty Start Date End Date Susan Fernández MD [address] [place] [address] PCP - General Family Medicine 10/27/16 01/19/23 documented as of this encounter
--- OUTSIDE RECORDS SUMMARY | 2024-01-23 15:48 | XMS_ITS | Encounter Summary ---
[place] [address] Care Team Providers Care Ballpoint Pen Assembly Machine Operator Name Role Phone Susan Fernández MD Primary Care Provider [phone] Encounter Details Date Type Department Care Team (Late st Contact Info) Description 02/03/2017 [place] [address] Ana Potter RN Pre-op testing Social History Tobacco Use Types Packs/Day Years [...] 8:15 AM EDT Office Visit Dermatology at [place] [address] [facility] [place] [phone] Cortez Bey MD [address] [facility], [place] [address] documented as of this encounter Visit Diagnoses Diagnosis Pre-op testing Preoperative examination, unspecified documented in this encounter Care Teams Ballpoint Pen Assembly Machine Operator Relationship Specialty Start Date End Date Susan Fernández MD [address] [place] [address] PCP - General Family Medicine 10/27/16 01/19/23 documented as of this encounter
--- OUTSIDE RECORDS SUMMARY | 2024-01-23 15:48 | XMS_ITS | Encounter Summary ---
Author Organization [facility] [place] [address] Care Team Providers Care Adjunct Spanish Instructor Name Role Phone Susan Fernández MD Primary Care Provider [phone] Reason for Visit * Reason Comments Nephrolithiasis Follow-up Encounter Details Date Type Department Care Team (Late st Contact Info) Description 07/22/2021 11:00 AM EDT [place] [address] Shantanu Goodman Jr., MD [facility] [place] [place] [address] Nephrolithiasis Social History Tobacco Use Types Packs/Day Years Used Date Smoking Tobacco: Never Smokeless Tobacco: Never Alcohol Use Standard Drinks/Week Comments Yes 0 (1 standard drink = 0.6 oz pur e alcohol) Sex and Gender Information Value Date Recorded Sex Assigned at Not on file Gender Identity Not on file Sexual Orientation Not on file documented as of this encounter Last Filed Vital Signs Vital Sign Reading Time Taken Comments Blood Pressure 115/74 07/22/2021 11:14 AM EDT Pulse 82 07/22/2021 11:14 AM EDT Temperature - - Respiratory Rate - - Oxygen Saturation - - Inhaled Oxygen Concentration - - Weight - - Height - - Body Mass Index - - documented in this encounter Progress Notes * Shantanu Goodman Jr., MD - 07/22/2021 11:00 AM EDT Images from the original note were not included. HPI: Jerad Jauregui is a very pleasant 65 y.o. gentleman who returns for 2 year urologic follow up regarding 1.8cm left renal nephrolithiasis in suspected calyceal diverticulum/excluded calyx. He initially saw Dr Linda in 2012 for bilateral nephrolithiasis. He underwent bilateral SWL in 07/2013. He had residual left renal stones. U/S 11/2014 suggested large left renal pelvic stone although f/u CT revealed this to actually be 2 adjacent stones, each approximately 8-10 mm. We had reviewed mgmt options and he elected to proceed with left renal SWL. He underwent left renal SWL 01/24/15. Postoperatively, he remained comfortable but passed only minimal amounts of stone. Follow up u/s continued to suggest approx 1.7 cm left renal stone. Thus, we decided to follow up with CT to better assess stone burden, approx 1.5cm. He notes he was warned that his cosopt eye drops could potentially increase stone risk (carbonic anyhdrase inhibitor --dorzolamide). He underwent left URS / perc access without dilation on 02/24/17. Intraoperative findings were notable for small left renal stone, fragmented with laser and extracted ureteroscopically. The large stone seen on CT scan was not seen on endoscopic inspection, suspect within a walled-off/excluded calyxor diverticulum. Percutaneous access into the diverticulum was obtained, but given no mouth/walled off nature, as well as lack of symptoms discussion had with pt's and elected not to dilate and remove the stone. He also has a long history of recognized enlarged prostate, managed with flomax x 15 years (Dr Valadez). He had an elevated PSA and had biopsy (10/2008) that was reportedly negative. He had a follow up biopsy for prostate asymmetry (01/06) that was also negative. Since then, he has opted not to continue with prostate cancer screening and has declined KIRK here. His LUTS have been controlled with medical management with flomax and finasteride. In the interval since his last visit, he has remained comfortable, denying any stone passage, renalcolic, or other new complaints. He is comfortable today. REVIEW OF SYSTEMS 07/22/2021 Constitutional None of the above Ear / nose / throat / mouth None of the above Eyes None of the above Respiratory None of the above Cardiovascular None of the above Gastrointestinal None of the above Skin, hair None of the above Musculoskeletal None of the above Neurological None of the above Hematologic / Lymphatic None of the above Genitourinary None of the above PMHx: BPH; nephrolithiasis; glaucoma PSHx: tonsillectomy; bilat IH repair; cataract excision; bilateral renal SWL; L URS/LL SocHx: no tobacco; occ'l EtOH; CPA Physical Exam Vitals reviewed. Constitutional: General: He is not in acute distress. Appearance: Normal appearance. He is not ill-appearing or toxic-appearing. Cardiovascular: Rate and Rhythm: Normal rate. Pulmonary: Effort: Pulmonary effort is normal. No respiratory distress. Genitourinary: Comments: No CVA tenderness to percussion bilaterally Neurological: Mental Status: He is alert. Stone Analysis: ?? 70% Calcium oxalate monohydrate 20% Calcium phosphate (apatite) ?? 10% Calcium oxalate dihydrate Imaging Studies: I independently reviewed the stone protocol CT from today. Previously noted left interpolar renal stones again are noted. There has been some interval enlargement of the more lateralstone previously measured approximately 3 mm now measuring 7 mm. There is no hydronephrosis or hydro ureter. No additional renal or ureteral stones are seen. Cylinder Press Operator images below Impression/Plan: 1) LEFT urolithiasis. There is no evidence of hydronephrosis, hydroureter, or obstruction although the stone of interest in the left kidney remains and there appears to be a small increase in overall stone burden as suggested on prior ultrasound. We reviewed management options including repeat ureteroscopy with endoscopic inspection, percutaneous access dilation and removal of stones within the the suspected calyceal diverticulum and possiblediverticular ablation, or continued surveillance/watchful waiting. Given continued asymptomatic nature and absence of evident obstruction, he declined surgical intervention preemptively and wishes tocontinue with surveillance every 2 to 3 years. We will plan renal ultrasound for next visit and consider a CAT scan at the visit after that. In the interval of new questions, symptoms, or problems arise he will contact us for sooner follow-up. We previously discussed the role of 24-hour urine to assess for underlying metabolic drivers of stone formation. He has declined this. We discussed that even though the stone is suspected within a walled off diverticulum, that if migration were to occur this could cause symptoms. Additionally infection within such and enclosed location may lead to abscess. He will contact us of any concerns or issues should arise. If stone removalis required in the future, I suspect it will have to be approached percutaneously. We discussed general dietary measures for stone prevention. We emphasized the importance of increasing fluid intake to maintain at least 2-2 and half liters urine output daily. He will continue to work on this. RTC 2.5 y with renal u/s, consider 5 year repeat stone protocol CAT scan, or sooner if new symptomsas above. documented in this encounter Plan of Treatment Upcoming Encounters Date Type Department Care Team (Late st Contact Info) Description 01/25/2025 8:15 AM EDT Office Visit Dermatology at [place] [address] [place] [address] Cortez Bey MD [address], [place] [address] documented as of this encounter Visit Diagnoses Diagnosis Nephrolithiasis Calculus of kidney documented in this encounter Care Teams Adjunct Spanish Instructor Relationship Specialty Start Date End Date Susan Fernández MD [address] [place] [address] PCP - General Family Medicine 10/27/16 01/19/23 documented as of this encounter
--- OUTSIDE RECORDS SUMMARY | 2024-01-23 15:48 | XMS_ITS | Encounter Summary ---
Author Organization [facility] [address] Care Team Providers Care Php Magento Developer Name Role Phone Susan Fernández MD Primary Care Provider [phone] Reason for Referral * Diagnostic Test (Routine) - Closed Specialty Diagnoses / Procedures Referred By Contac t Referred To Contact Radiology Diagnoses Nephrolithiasis Procedures CT Abdomen & Pelvis wo Contrast Shantanu Goodman Jr., MD [facility] [place] [place] [address] [facility] [place] [address] Referral ID Status Reason Start Date Expiration Date V isits Requested Visits Authorized [id number] Closed Specialty Service Requested 03/12/2021 09/10/2022 1 1 Reason for Visit * Diagnostic Test (Routine) - Closed Specialty Diagnoses / Procedures Referred By Contac t Referred To Contact Radiology Diagnoses Nephrolithiasis Procedures CT Abdomen & Pelvis wo Contrast Shantanu Goodman Jr., MD [facility] [place] [place] [address] [facility] [place] [address] Referral ID Status Reason Start Date Expiration Date V isits Requested Visits Authorized [id number] Closed Specialty Service Requested 03/12/2021 09/10/2022 1 1 Encounter Details Date Type Department Care Team (Latest Contact Info) Description 07/22/2021 8:46 AM EDT - 07/22/2021 11:59 PM EDT Hospital Encounter CT Scan at [facility] [place] [address] Shantanu Goodman Jr., MD [facility] [place] [address] Nephrolithiasis Discharge Disposition: Home Social History Tobacco [...] Sig Dispensed Refills Start Date End Date VIT C/E/ZN/COPPR/LUTEIN/ZEAX AN (PRESERVISION AREDS 2 ORAL) Take by mouth 2 times daily. finasteride (PROSCAR) 5 mg tablet Take 5 mg by mouth daily. Alphagan P 0.1 % Drops INSTILL ONE DROP TWICE A DAY IN THE LEFT EYE 04/19/2021 01/20/2023 loteprednol (LOTEMAX) 0.5 % Drops, SuspensionIndications:Pr imary open-angle glaucoma, left eye, mild stage Place 1 drop into the left eye 2 times daily. 10 mL 3 05/23/2017 03/18/2023 dorzolamide-timolol (COSOPT) 22.3-6.8 mg/mL DropsIndications:Primary open-angle glaucoma, left eye, mild stage Place 1 drop into the left eye 2 times daily. 20 mL 3 05/23/2017 01/20/2023 vitamin E 100 unit Capsule Take 100 Units by mouth 2 times daily. 01/20/2023 latanoprost (XALATAN) 0.005 % DropsIndications:Primary open angle glaucoma of left eye, mild stage Place 1 drop into the left eye nightly. 2.5 mL 11 09/01/2016 01/20/2023 tamsulosin (FLOMAX) 0.4 mg capsule Take 0.4 mg by mouth daily. 04/25/2002 01/20/2023 documented as of this encounter Plan of Treatment Upcoming Encounters Date Type Department Care Team (Late st Contact Info) Description 01/25/2025 8:15 AM EDT Office Visit Dermatology at [place] [address] [place] [address] Cortez Bey MD [address], [place] [address] documented as of this encounter Procedures Procedure Name Priority Date/Time Associated Diagnosis Comments CT ABDOMEN AND PELVIS WO CONTRAST Routine 07/22/2021 9:04 AM EDT Nephrolithiasis documented in this encounter Results * CT Abdomen & Pelvis wo Contrast (07/22/2021 9:04 AM EDT) Anatomical Region Laterality Modality Abdomen, Pelvis Computed Tomogra phy 07/22/2021 9:20 AM EDT Impressions 07/22/2021 9:21 AM EDT 1. ??No hydronephrosis or urolithiasis. 2. ??Focal mild stranding seen in the mesentery abutting a short segment of the distal descending colon: Possible uncomplicated focal diverticulitis. Recommend interval follow-up. Thank you for letting us participate in the care of this patient. ??If you are a health care provider and have any questions regarding this report, please contact the number below. ??For patients who have questions please contact the health care giver that requested your imaging first. ? Electronically signed by: Darian Clemente MD, [facility] ([phone]), at 07/22/2021 9:21 AM Narrative 07/22/2021 9:21 AM EDT EXAMINATION: CT ABDOMEN AND PELVIS WO CONTRAST CLINICAL HISTORY: Flank pain, kidney stone suspected TECHNIQUE: Helical CT of the abdomen and pelvis was performed without the use of intravenous contrast. ??Multiplanar reformatted images were generated. COMPARISON: 03/16/2016 FINDINGS: The absence of intravenous contrast limits the evaluation of solid viscera and vasculature. Right kidney/ureter: No collecting system dilation or calculi. Left kidney/ureter: Multiple, scattered, nonobstructing calculi. The largest measures approximately 7 mm. No collecting system obstruction. Urinary Bladder: No bladder or proximal urethral calculi. Lower chest: No pleural effusion Liver: ??Partially visualized LEFT hepatic lobe cyst. Scattered other, more indeterminate smaller low-attenuation hepatic lesions, likely cysts. Bile ducts: Nondilated. Gallbladder: No calcified gallstones. Normal caliber wall. Pancreas: Normal attenuation without ductal dilatation. Spleen: Normal. Adrenals: Normal. Vasculature: No aneurysm. Lymph Nodes: No enlarged lymph nodes. Bowel: No small bowel obstruction. No areas of abnormal small bowel wall thickening. Colonic diverticulosis. Focal, subtle, mild increased fat stranding is seen in the mesentery surrounding a short segment of the distal descending colon (series 6, images 44 through 46).. The appendix is visualized and is normal. The terminal ileum is normal. Peritoneum and mesentery: No loculated collections to suggest an abscess Abdominal wall: Normal. Reproductive organs: Normal. Osseous structures: No suspicious lesions. Procedure Note Darian Clemente MD - 07/22/2021 EXAMINATION: CT ABDOMEN AND PELVIS WO CONTRAST CLINICAL HISTORY: Flank pain, kidney stone suspected TECHNIQUE: Helical CT of the abdomen and pelvis was performed without theuse of intravenous contrast. Multiplanar reformatted images were generated. COMPARISON: 03/16/2016 FINDINGS: The absence of intravenous contrast limits the evaluation of solid visceraand vasculature. Right kidney/ureter: No collecting system dilation or calculi. Left kidney/ureter: Multiple, scattered, nonobstructing calculi. Thelargest measures approximately 7 mm. No collecting system obstruction. Urinary Bladder: No bladder or proximal urethral calculi. Lower chest: No pleural effusion Liver: Partially visualized LEFT hepatic lobe cyst. Scattered other,more indeterminate smaller low-attenuation hepatic lesions, likely cysts. Bile ducts: Nondilated. Gallbladder: No calcified gallstones. Normal caliber wall. Pancreas: Normal attenuation without ductal dilatation. Spleen: Normal. Adrenals: Normal. Vasculature: No aneurysm. Lymph Nodes: No enlarged lymph nodes. Bowel: No small bowel obstruction. No areas of abnormal small bowel wall thickening. Colonic diverticulosis. Focal, subtle, mild increased fatstranding is seen in the mesentery surrounding a short segment of the distaldescending colon (series 6, images 44 through 46).. The appendix is visualized andis normal. The terminal ileum is normal. Peritoneum and mesentery: No loculated collections to suggest an abscess Abdominal wall: Normal. Reproductive organs: Normal. Osseous structures: No suspicious lesions. IMPRESSION 1. No hydronephrosis or urolithiasis. 2. Focal mild stranding seen in the mesentery abutting a short segment ofthe distal descending colon: Possible uncomplicated focal diverticulitis.Recommend interval follow-up. Thank you for letting us participate in the care of this patient. If youare a health care provider and have any questions regarding this report,please contact the number below. For patients who have questions please contactthe health care giver that requested your imaging first. Electronically signed by: Darian Clemente MD, [facility]([phone]), at 07/22/2021 9:21 AM Shantanu Goodman Jr., MD IMG CT ORDERABLES documented in this encounter Visit Diagnoses Diagnosis Nephrolithiasis Calculus of kidney documented in this encounter Care Teams Php Magento Developer Relationship Specialty Start Date End Date Susan Fernández MD [address] [place] [address] PCP - General Family Medicine 10/27/16 01/19/23 documented as of this encounter
--- OUTSIDE RECORDS SUMMARY | 2024-01-23 15:48 | XMS_ITS | Encounter Summary ---
Author Organization [facility] [place] [address] Care Team Providers Care Barrel Assembly Inspector Name Role Phone Susan Fernández MD Primary Care Provider [phone] Reason for Referral * Diagnostic Test (Routine) - Closed Specialty Diagnoses / Procedures Referred By Jeannie barker Referred To Contact Radiology Diagnoses Nephrolithiasis Procedures CT Abdomen & Pelvis wo Contrast Shantanu Goodman Jr., MD [facility] [place] [address] [facility] [place] [address] Referral ID Status Reason Start Date Expiration Date V isits Requested Visits Authorized [id number] Closed Specialty Service Requested 03/12/2021 09/10/2022 1 1 Encounter Details Date Type Department Care Team (Late st Contact Info) Description 03/12/2021 [place] [address] Shantanu Goodman Jr., MD [facility] [place] [address] Nephrolithiasis Social History Tobacco Use Types Packs/Day [...] 8:15 AM EDT Office Visit Dermatology at [place] [address] [place] [address] Cortez Bye MD [address], [place] [address] documented as of this encounter Results * CT Abdomen & [...] who have questions please contact the health assisted living care manager that requested your imaging first. ? Electronically signed by: Darian Clemente MD, [facility] ([phone]), at 07/22/2021 9:21 AM Narrative 07/22/2021 9:21 [...] patients who have questions please contactthe health assisted living care manager that requested your imaging first. Electronically signed by: Darian Clemente MD, [facility]([phone]), at 07/22/2021 9:21 AM Shantanu Goodman Jr., MD IMG CT ORDERABLES documented in this encounter Visit Diagnoses Diagnosis Nephrolithiasis Calculus of kidney Nephrolithiasis Calculus of kidney documented in this encounter Care Teams Barrel Assembly Inspector Relationship Specialty Start Date End Date Susan Fernández MD [address] [place] [id number] PCP - General Family Medicine 10/27/16 01/19/23 documented as of this encounter
--- OUTSIDE RECORDS SUMMARY | 2024-01-23 15:48 | XMS_ITS | Encounter Summary ---
[place] [address] Care Team Providers Care Harp Repairer Name Role Phone Susan Fernández MD Primary Care Provider [phone] Reason for Visit * Reason Comments Skin Check Encounter Details Date Type Department Care Team (Late st Contact Info) Description 12/23/2016 4:15 PM EDT Office Visit Dermatology at [address] [address] Cortez Bey MD [address] [place] [address], [facility] [place] [address] History of basal cell carcinoma Social History Tobacco Use Types Packs/Day Years Used Date Smoking Tobacco: Never Smokeless Tobacco: Never Alcohol Use Standard Drinks/Week Comments Yes 0 (1 standard drink = 0.6 oz pur e alcohol) Sex and Gender Information Value Date Recorded Sex Assigned at Not on file Gender Identity Not on file Sexual Orientation Not on file documented as of this encounter Progress Notes * Cortez Bey MD - 12/23/2016 4:15 PM EDT PROBLEM: 1. One-year skin checkup. 2. 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 Jerad follows up for repeat skin checkup. He is doing well, has not noted any particular lesions of concern. PHYSICAL EXAMINATION: Reveals no evidence of recurrence at the BCCa tumor site on the left distal arm. Examination of the face, chest, back, hands, arms, forearms, thighs, and calves unremarkable. He has a number of small tags in the axillary vault and around the base of his neck. He has a number of stucco keratoses on the legs and arms, and a few seborrheic keratoses developing out of these. A/P: 1. Benign skin examination today. a. Patient reassured about his benign skin examination. b. I believe we can space visits out now to every 2-3 years. c. Patient knows he can see me back sooner for any particular lesions of concern. We discussed again the recognition of skin cancer. 2. Tags. a. LN2 x2 applied to tags around base of neck and axillary vault. cc: Froy Monroe MD documented in this encounter Plan of Treatment Upcoming Encounters Date Type Department Care Team (Late st Contact Info) Description 01/25/2025 8:15 AM EDT Office Visit Dermatology at [place] [address] [place] [address] Cortez Bey MD [address] [facility] [place] [address] documented as of this encounter Visit Diagnoses Diagnosis History of basal cell carcinoma Personal history of other malignant neoplasm of skin documented in this encounter Care Teams Harp Repairer Relationship Specialty Start Date End Date Susan Fernández MD [address] [place] [address] PCP - General Family Medicine 10/27/16 01/19/23 documented as of this encounter
--- OUTSIDE RECORDS SUMMARY | 2024-01-23 15:48 | XMS_ITS | Encounter Summary ---
Author Organization Formerly [facility] Address [facility] [place] [address] Care Team Providers Care Senior Auditor Name Role Phone Susan Fernández MD Primary Care Provider [phone] Reason for Visit * Auth/Cert Specialty Diagnoses [...] Expiration Date Visits Re quested Visits Authorized [id number] 1 1 Encounter Details Date Type Department Care Team (Latest Contact Info) Description 02/24/2017 6:15 AM EST - 02/24/2017 12:40 PM [facility] Hospital [place]counter [place] [address] Carley Crockett Jr., MD [facility] [address] Nephrolithiasis Discharge Disposition: Home Social History Tobacco [...] Sign Reading Time Taken Comments Blood Pressure 137/77 02/24/2017 11:00 AM EST Pulse 60 02/24/2017 6:41 AM EST Temperature 36.1 ??C (97 ??F) 02/24/2017 10:34 AM EST Respiratory Rate 16 02/24/2017 11:00 AM EST Oxygen Saturation 97% 02/24/2017 11:00 AM EST Inhaled Oxygen Concentration - - Weight 88.5 kg (195 lb) 02/24/2017 6:41 AM EST Height 185.4 cm (6' 1) 02/24/2017 6:41 AM EST Body Mass Index 25.73 02/24/2017 6:41 AM EST documented in this encounter Discharge Instructions * Discharge Instructions* Ruba Jimenez RN - 02/24/2017 10:54 AM EST POST ANESTHESIA INSTRUCTIONS Go home, rest, use caution on stairs. Change positions slowly. Do not smoke if you are alone. Diet light to regular as tolerated today. If nausea occurs start with clear liquids and progress slowly. No driving, operating machinery, alcoholic beverages and no important decisions for 24 hours. Monitor IV site for signs and symptoms of infection: increasing redness, swelling, foul drainage, if occurs contact M.D. Patients who have had endotrachial tubes (this tube, used by anesthesia department, is passed down your throat after you are asleep, to ensure safe air passage during your operation). A sore throat is normal due to the tube. Cold liquids or soothing lozenges will help ease the discomfort. The generalized muscle aches are due to the medication given to you just before the tube is inserted. As the medication wears off, you may develop muscle soreness, which usually goes away in 12-24 hours. * Patient Instructions* Selene Recio - 02/24/2017 10:26 AM EST Instructions following Cystoscopic Surgery with a Ureteral Stent Placement You have a LEFT ureteral stent in place, it is normal for it to cause some irritation in your bladder and cause you to have blood in your urine. It may bother you when you urinate. This is normal. Ifyou cannot tolerate this irritation or if you have severe back or side pain, you should call our office [phone] before 5PM or [phone] after hours. Remember, ureteral stent is a TEMPORARY device and needs to be removed. Please keep your scheduled appointments. Wound Care: None needed Activity: As tolerated by your comfort level Diet: no restrictions. Drink at least 2 liters of water daily Urination: You will likely have a small amount of blood (pink tinged, or cranberry punch colored urine) and blood clots in your urine while the stent is in place. This is normal; however, if you are passing large amounts of blood clots, bright red blood (color of red wine, or thick consistency of ketchup) or are bleeding an unable to urinate please call our office at [phone] 5PM or [phone] after hours. Call Doctor for: Please call if you have copious blood in your urine, severe back or side pain, pain not controlled by pain medications, persistent nausea and vomiting, or for any fevers greater ketu789.3 F. The number for questions is [phone] before 5 PM weekdays and [phone] after 5 PM and weekends. Pain Medication: For mild pain, take ibuprofen (motrin, advil) 600mg every 6 hours and acetaminophen (tylenol) 1000mg every 6 hours. If your pain is not totally controlled with these two medications,use the prescribed opioid pain medication (oxycodone) No driving for 8 hours after any dose of opioid pain medication. Continue taking your flomax, which helps relax smooth muscles in the urinary tract, and can help with stent discomfort oxycodone (narcotic pain killer) can constipate you. Stool softeners, such as Colace; mild laxatives, such as Milk of Magnesia, Sennakot, or Ducolax tabs; or enemas may be used if needed and are gpnz-sgv-cgmvlzz (OTC) medications available at most local pharmacies. Prunes or prune juice, taken daily, can also be helpful for constipation treatment or prevention and are available at most supermarkets. Follow-up: We will see you in our clinic in 7-10 days for stent removal. Please call [phone] (clinic number for appointments) to confirm date and time of this appointment if you do not receive acall from the scheduling secretaries by Wednesday 02/28. You will be given a prescription for a narcotic medication immediately following your surgery. Narcotics are prescribed for short-term use to help treat your pain. Surgical pain requiring narcotics will usually be greatly decreased 2-3 days after surgery & should be mild to absent by 10-14 days. We will prescribe a narcotic pain reliever for no longer than 2 weeks following your surgery. This will be determined by your surgeon. Narcotics do not reduce inflammation and it is inflammation that is usually a major cause of pain after surgery. Narcotics have many side effects such as constipation, lightheadedness, dizziness, sedation, confusion, nausea and vomiting. Driving and the use of alcohol are not recommended while you are using narcotic pain medications. Non-steroidal anti-inflammatories (NSAIDS) such as naproxen and ibuprofen (Advil, Motrin, Aleve) are medications that reduce pain and inflammation. If you find your pain is not adequately controlled with the prescribed dose of your narcotic pain medication, NSAIDS may be used 48 hours after surgery with your narcotic to help alleviate the pain caused by inflammation. As you progress through your post-operative period, your pain should decrease and the use of narcotic medications should be less necessary. To reduce your chance of side effects, it is recommended that you save your narcotic medication for nighttime use and switch to NSAIDS or Acetaminophen (Tylenol) during the day. Alternative means of pain relief such as rest and relaxation, positioning, as well as decreasing stimulants such as coffee, tea, soft drinks, and nicotine may also help to alleviate pain. If you continue to experience significant pain 4-5 days after your procedure, it may be necessary to be re-evaluated by your physician. PRESCRIPTION RENEWALS: Renewal requests should be called to our clinic at [phone]. Narcotic renewals may be requested from 8am-4pm Tuesday through Tuesday. Due to patient safety, narcotic renewalswill not be honored after hours or on weekends. It is best to make your request 2-3 days before yourun out of your medication as it will take at least 24 hours for physician approval and nurse follow-up. Note that certain prescriptions, such as Percocet, Oxycodone, Vicodin, & Hydrocodone can not becalled in to a pharmacy and must be picked up or mailed to you. If mailed to you, expect 2-5 business days prior to arrival. documented in this encounter Medications at Time of Discharge [...] needed for Pain. 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 2.5 mL 11 09/01/2016 01/20/2023 dorzolamide-timolol (COSOPT) 22.3-6.8 mg/mL DropsIndications:Primar y open-angle glaucoma, left eye, mild stage Place 1 drop into the left eye 2 times daily. 20 mL 11 04/01/2016 05/22/2017 loteprednol (LOTEMAX) 0.5 % Drops, Suspension Place 1 drop into the left eye 2 times daily. 10 mL 3 04/01/2016 05/22/2017 tamsulosin (FLOMAX) 0.4 mg capsule Take 0.4 mg by mouth daily. 04/25/2002 01/20/2023 documented as of this encounter Progress Notes * Ruba Cabrera RN - 02/24/2017 12:[address] Crockett was here to talk with patient regarding findings. Patient ready for discharge home. * Ruba Cabrera RN - 02/24/2017 11:29 AM EST Patient ambulated to the bathroom and voided. Slow urine stream and a bit painful upon urination.Hematuria was present but no clots. documented in this encounter H&P Notes * Selene Recio - 02/24/2017 6:28 AM EST Patient Name: Jerad Jauregui Age: 61 y.o. Date of : 1955 Attending Provider: Carley Crockett Jr., MD Jerad Jauregui is a 61 y.o. male presenting for LEFT percutaneous nephrolithotomy for left renal stone. No recent changes to health status since he saw Dr. Crockett in October 2016. His pre-op Ucx from [facility] on 02/10/2017 was negative. 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 Thyroid Disease Mother ??? Cancer Father ??? Cataracts Father ??? Heart Disease Father ??? Retinal Detachment Sister ??? Thyroid Disease Sister ??? Diabetes Neg Hx ??? Glaucoma Neg Hx ??? Hypertension Neg Hx ??? Amblyopia Neg Hx ??? Macular Degeneration Neg Hx ALLERGIES Allergies Allergen Reactions ??? Codeine MEDICATIONS No current facility-administered medications on file prior to encounter. Current Outpatient Prescriptions on File Prior to Encounter Medication Sig Dispense Refill ??? latanoprost (XALATAN) 0.005 % Drops Place 1 drop into the left eye nightly. 2.5 mL 11 ??? dorzolamide-timolol (COSOPT) 22.3-6.8 mg/mL Drops Place 1 drop into the left eye 2 times daily.20 mL 11 ??? loteprednol (LOTEMAX) 0.5 % Drops, Suspension Place 1 drop into the left eye 2 times daily. 10 mL 3 ??? finasteride (PROSCAR) 5 mg tablet Take 5 mg by mouth daily. ??? tamsulosin (FLOMAX) 0.4 mg capsule Review of Systems He denies fever, chills, and other constitutional symptoms, or dysuria, hematuria, retention, or trouble voiding. Review of head and neck, pulmonary, cardiac, GI, and neuro/psych systems is negative other than HPI. PHYSICAL EXAM Temp: [36.4 ??C (97.5 ??F)] Heart Rate: [60] Resp: [17] BP: (114)/(70) SpO2: [100 %] Heart Rate from SPO2: -- GEN: Resting comfortably in bed, conversant, NAD. CHEST: Normal work of breathing, CTA-B CV: Sinus rhythm. No m/r/g ABD: Soft, non-tender, non-distended. EXTR: Moving spontaneously. SKIN: Warm and dry. NEURO: Alert and follows commands. ASSESSMENT / PLAN 61 y.o. male presenting for LEFT percutaneous nephrolithotomy for left renal stone. Patient appearsfit for surgery. The details, alternatives, risks, and benefits of the procedure were reviewed, andthe patient wishes to proceed. Informed consent has been obtained. All questions were answered to the patient's satisfaction. Proceed with surgery. documented in this encounter Miscellaneous Notes * Op Note - Selene Recio - 02/24/2017 10:51 AM EST [facility] Operative Note Patient Name: Jerad Jauregui : [id number] ?? Case Date: 02/24/2017 ?? Surgeon: Surgeon(s) and Role: * Carley Crockett Jr., MD - Primary * Selene Recio MD - Resident-Surgeon Chief ?? Preoperative diagnosis: left renal stone ?? Postoperative diagnosis: left renal stone ?? Procedure(s): CYSTOURETEROSCOPY,DIAGNOSTIC,W/ LITHOTRIPSY INC. INSERTION OF INDWELLING URETERAL STENT (WRVU 8) MODIFIER HOLMIUM LASER FLUOROSCOPY (WRVU 0.17) INJ FOR NEPHROSTOGRAM/URETEROGRAM, INC IMG GUIDANCE; NEW ACCESS (WRVU 3.15) PERCUTANEOUS INTRO GUIDE WIRE TO ACCESS RENAL PELVIS,AND OR URETER, W\DILATION (WRVU 3.37) ?? Anesthesia: General ?? Findings: 1. Small left renal stone, fragmented with laser and extracted ureteroscopically 2. Large stone seen on CT scan not seen on endoscopic inspection, suspect within a walled-off/excluded calyx or diverticulum 3. Percutaneous access into the diverticulum, but given no mouth/walled off nature, as well as lackof symptoms discussion had with pt's and elected not to dilate and remove the stone ?? Complications: none ? Fluids: 1000 ml ?? PRBCs: none (See Anesthesia Record/Report for Other Blood Products) ?? Urine output: not recorded ?? Estimated Blood Loss: 10 ml ?? Drains: LEFT 6 Fr variable length J-J ureteral stent (no tether) ?? Specimens removed during surgery: Left renal stone ?? Surgical Closure: na - no incision ?? Disposition: awakened from anesthesia, extubated and taken to the recovery room in a stable condition, having suffered no apparent untoward event. ?? Condition: doing well without problems ?? (Please see the Surgical Encounter Summary for any Implant and Specimen details pertinent to this patient.) ?? Infection Bundle used? N/A HPI/Indications: Jerad Jauregui is a 61 y.o. male presenting for LEFT percutaneous nephrolithotomy for left renal stone. No recent changes to health status since he saw Dr. Crockett in October 2016. His pre-op Ucx from [facility] on 02/10/2017 was negative. Description of procedure: The patient was identified in the pre-operative holding area. Consent was verified. The correct side of the procedure was marked. The patient was taken to the operating room and placed supine on the operating table. General anesthesia was induced. The patient was then moved to the prone position, and the patient's perineum, flank, and back were prepped and draped in the usual sterile fashion. Allpressure point were adequate padded to prevent neurapraxic injury. A timeout was performed involving all members of the OR team confirming the patient's identity and planned procedure. Preoperative antibiotics (ampicillin + gentamicin) were administered. ? A flexible cystoscope was passed through the urethra and into the bladder under direct vision. The LEFT ureteral orifice was cannulated with a 5 Fr Pollack catheter. A glide wire was advanced via thecatheter under fluoroscopic guidance. Then a second glidewire was placed, and a ureteroscope was attempted to be advanced, however the distal ureter was too tight. The ureteroscope was removed and instead, the Pollack catheter was advanced to the renal pelvis. The wire was removed, and the catheterwas secured in place. Retrograde pyelography was performed by injecting contrast via the catheter. The large stone seen on CT scan was identified fluoroscopically near a middle posterior calyx. Thiscalyx was identified fluoroscopically and then targeted with multiplanar fluoroscopy and entered using a bull's eye technique. After confirming fluoroscopic calyceal entry, the inner sheath of the needle was removed and a glide wire was advanced. However this was unable to be advanced into the renal pelvis, and was instead coiling in a presumed diverticulum. An angiographic catheter was placed over the wire. Contract was instilled, and this remained in the diverticulum. At this point decision was made to perform retrograde ureteroscopy. The ureter was dilated using the inner sheath of a 9-11 Fr sheath, and then the whole sheath was placed. Ureteroscope was advanced into the renal pelvis. The large stone seen on CT scan was not seen with the ureteroscope. It appeared to be within a walled-off/excluded calyx or diverticulum. At this point, Dr. Crockett called patient's to discuss the situ ation - we had obtained percutaneous access into the diverticulum, but given no mouth/walled off nature, as well as lack of symptoms, Dr. Crockett and pt's elected not to dilate the tract and removethe stone. The entire pelvicalyceal system was then inspected. A ~6mm inferior pole stone was seen,this was moved to the ureter using an Engage basket, and fragmented with the Holmium laser (0.8J and 5 Hz) and removed using the basket. Then, using a flexible cystoscope, a 6 Fr variable legth J-J ureteral stent was passed over the existing glidewire.?The proximal curl was confirmed to be in the renal pelvis on fluoroscopy, and the distal curl was visualized in the bladder. The cystoscope was removed and a Harris catheter inserted to empty the bladder. The Harris was subsequently removed. The percutaneous access wire was removed, and area dressed with a Band-aid. Fluoroscopic assessment of the fully expanded LEFT lung was performed. No pneumothorax, effusion, or other acute cardiopulmonary abnormality was seen. ?? The patient tolerated the procedure well and was moved to the supine position before being awakenedfrom anesthesia with no adverse events. A sponge and instrument count was performed and the counts were correct. The patient was taken to the recovery area in stable condition. Dr. Crockett, the attending surgeon, was present for the entire procedure. Plan: Discharge home Keflex x 3 days Ureteral stent removal in 7-10 days in clinic ?? Associated attestation - Carley Crockett Jr., MD - 02/24/2017 2:53 PM EST Attestation: Case Date: 02/24/2017 I was present and I participated during the entire procedure CARLEY CROCKETT JR, MD 02/24/2017 * Brief Op Note - Selene Recio - 02/24/2017 10:19 AM EST Brief Operative Note Patient Name: Jerad Jauregui : [id number] Case Date: 02/24/2017 Surgeon: Surgeon(s) and Role: * Carley Crockett Jr., MD - Primary * Selene Recio MD - Resident-Surgeon Chief Preoperative diagnosis: left renal stone Postoperative diagnosis: left renal stone Procedure(s): CYSTOURETEROSCOPY,DIAGNOSTIC,W/ LITHOTRIPSY INC. INSERTION OF INDWELLING URETERAL STENT (WRVU 8) MODIFIER HOLMIUM LASER FLUOROSCOPY (WRVU 0.17) INJ FOR NEPHROSTOGRAM/URETEROGRAM, INC IMG GUIDANCE; NEW ACCESS (WRVU 3.15) PERCUTANEOUS INTRO GUIDE WIRE TO ACCESS RENAL PELVIS,AND OR URETER, W\DILATION (WRVU 3.37) Anesthesia: General Findings: 1. Small left renal stone, fragmented with laser and extracted ureteroscopically 2. Large stone seen on CT scan not seen on endoscopic inspection, suspect within a walled-off/excluded calyx or diverticulum 3. Percutaneous access into the diverticulum, but given no mouth/walled off nature, as well as lackof symptoms discussion had with pt's and elected not to dilate and remove the stone Complications: none Fluids: 1000 ml PRBCs: none (See Anesthesia Record/Report for Other Blood Products) Urine output: not recorded Estimated Blood Loss: 10 ml Drains: LEFT 6 Fr variable length J-J ureteral stent (no tether) Specimens removed during surgery: Left renal stone Surgical Closure: na - no incision Disposition: awakened from anesthesia, extubated and taken to the recovery room in a stable condition, having suffered no apparent untoward event. Condition: doing well without problems (Please see the Surgical Encounter Summary for any Implant and Specimen details pertinent to this patient.) Infection Bundle used? N/A Plan: Discharge home Keflex x 3 days Stent removal in 7-10 days in clinic Associated attestation - Carley Crockett Jr., MD - 02/24/2017 2:53 PM EST I was present and I participated during the entire procedure. documented in this encounter Plan of Treatment Upcoming Encounters Date Type Department Care Team (Late st Contact Info) Description 01/25/2025 8:15 AM EDT Office Visit Dermatology at [place] [address] [place] [address] Cortez Bey MD [address] [facility] [place] [address] documented as of this encounter Procedures Procedure Name Priority Date/Time Associated Diagnosis Comments XR FLUORO NO RAD <1HR - OR USE Routine 02/24/2017 10:43 AM EST KIDNEY STONE ANALYSIS Routine 02/24/2017 10:15 AM EST PERCUTANEOUS INTRO GUIDE WIRE TO ACCESS RENAL PELVIS,AND OR URETER, W\DILATION (WRVU 3.37) Yes 02/24/2017 7:29 AM EST left renal stone INJ FOR NEPHROSTOGRAM/URETERO GRAM, INC IMG GUIDANCE; NEW ACCESS (WRVU 2.9) Yes 02/24/2017 7:29 AM EST left renal stone FLUOROSCOPY (WRVU 0.3) Yes 02/24/2017 7:29 AM EST left renal stone MODIFIER HOLMIUM LASER Yes 02/24/2017 7:29 AM EST left renal stone CYSTOURETEROSCOPY,DERECK GNOSTIC,W/ LITHOTRIPSY INC. INSERTION OF INDWELLING URETERAL STENT (WRVU 8) Yes 02/24/2017 7:29 AM EST left renal stone ABORH RECHECK STATUS Routine 02/24/2017 6:26 AM EST HEMOGRAM Routine 02/24/2017 6:26 AM EST Nephrolithiasis DIFFERENTIAL, AUTOMATED Routine 02/24/2017 6:26 AM EST Nephrolithiasis ABO/RH TYPING Routine 02/24/2017 6:26 AM EST CBC (WITH DIFF) Routine 02/24/2017 6:26 AM EST Nephrolithiasis ANTIBODY SCREEN Routine 02/24/2017 6:26 AM EST TYPE AND SCREEN ([facility]UCK) Routine 02/24/2017 6:26 AM EST BASIC METABOLIC PANEL STAT 02/24/2017 6:26 AM EST Nephrolithiasis IMPLANTABLE DEVICES SCAN 02/24/2017 12:00 AM EST documented in this encounter Results * XR Fluoro No Rad <1Hr - OR Use (02/24/2017 10:43 AM EST) Narrative RAD - 02/24/2017 11:43 AM EST This order does not need a radiologist interpretation. ?? Carley Crockett Jr., MD IMG FLUORO ORDERAB LES [place], [place] * Kidney Stone Analysis (02/24/2017 10:15 AM EST) Kidney Stone Analysis (MAY) Test ? Result ?Flag ??Unit ??RefValue ------- Kidney Stone Analysis ??Source: ?Left Renal ??1st Constituent: ?70% Calcium oxalate monohydrate ??2nd Constituent: ?20% Calcium phosphate (apatite) ??3rd Constituent: ?10% Calcium oxalate dihydrate ? ---ADDITIONAL INFORMATION------- ?This test was developed and its performance characteristics ?determined by [facility] in a manner consistent with CLIA ?requirements. This test has not been cleared or approved by ?the U.S. Food and Drug Administration. ?Test Performed by: ?[facility] ?[address] [place] [address] [facility] Calculus specimen (specimen) 02/24/2017 10:15 AM EST 02/24/2017 11:39 AM EST Narrative Resulting Agency Comment Spec In Lab Carley Crockett Jr., MD LAB SEND OUT ORDER BESSIE [facility] [place] [address] * ABORH Recheck Status (02/24/2017 6:26 AM EST) ABORH Recheck Order Order Placed [facility] ABORH Type Recheck Complete [facility] Blood specimen (specimen) 02/24/2017 6:26 AM EST 02/24/2017 6:35 AM EST Narrative Resulting Agency Comment Spec In Lab Carley Crockett Jr., MD BLOOD BANK LAB ORD ERABLES Performing Organization Address [facility] Co de Phone Number [facility] [place] [address] * Antibody screen (02/24/2017 6:26 AM EST) Ab Screen Interp Negative [facility] Expires at [id number] on: 02/27/2017 [facility] Blood specimen (specimen) 02/24/2017 6:26 AM EST 02/24/2017 6:35 AM EST Narrative Resulting Agency Comment Spec In Lab Carley Crockett Jr., MD BLOOD BANK LAB ORD ERABLES Performing Organization Address [facility] Co de Phone Number [facility] [place] [address] * ABO/Rh Typing (02/24/2017 6:26 AM EST) ABORH Type A Pos [facility] Blood specimen (specimen) 02/24/2017 6:26 AM EST 02/24/2017 6:35 AM EST Narrative Resulting Agency Comment Spec In Lab Carley Crockett Jr., MD BLOOD BANK LAB ORD ERABLES Performing Organization Address [facility] Co de Phone Number [facility] [place] [address] * Differential, Automated (02/24/2017 6:26 AM EST) Neutrophil % 51.7 % [facility] Neutrophil Absolute 2.96 1.70 - 6.10 x10(3)/[facility] [place] [facility] Lymph % 36.6 % [facility] Lymphocytes Abs 2.1 0.9 - 3.2 x10(3)/[facility] [place] [facility] Monocyte % 8.8 % [facility] Monocyte Abs 0.5 0.3 - 0.9 x10(3)/[facility] [place] [facility] Eos % 1.8 % [facility] Eosinophils Abs 0.1 0.0 - 0.4 x10(3)/[facility] [place] [facility] Basophil % 0.7 % [facility] Baso Absolute 0.0 0.0 - 0.1 x10(3)/[facility] [place] [facility] Immature Gran % 0.40 % [facility] [facility] Comment: Immature granulocytes(IG's)percentage and absolute count will include metamyelocytes, myelocytes, and promyelocytes. Blood smears from CBCs yielding IG's will be scanned manually for concordance. If this scan disagrees with the automated IG or if promyelocytes are noted, a manual differential will be performed. Immature Gran Absolute 0.02 0.00 - 0.04 x10(3)/[facility] [place] LABORATORY Blood specimen (specimen) 02/24/2017 6:26 AM EST 02/24/2017 6:34 AM EST Narrative Resulting Agency Comment Spec In Lab Carley Crockett Jr., MD HEMATOLOGY ORDERAB LES Performing Organization Address City/State/[facility] Co de Phone Number [facility] [place] [address] * (ABNORMAL) Hemogram (02/24/2017 6:26 AM EST) White Blood Cell 5.7 4.0 - 9.5 x10(3)/mc L [facility] Red Blood Cell 4.94 4.58 - 5.54 x10(6)/ L [facility] Hemoglobin 15.0 13.7 - 16.5 gm/dL [facility] Hematocrit 46.3 40.5 - 48.5 % [facility] Mean Cell Volume 93.7(H) 82.9 - 93.1 fL [facility] Mean Cell Hemoglobin 30.4 27.5 - 32.1 pg [facility] Mean Cell Hemoglobin Concentration 32.4 32.0 - 35.7 gm/dL [facility] Platelet 192 145 - 357 x10(3)/mc L [facility] RDW Standard Deviation 42.9 36.0 - 45.0 fL [facility] RDW coefficient of variation 12.4 11.4 - 13.8 % [facility] Mean Platelet Volume 10.0 7.6 - 12.9 fL [facility] NRBC% auto 0.0 % [facility] NRBC Absolute 0.000 0.000 - 0.000 x10(3)/mc L [facility] Blood specimen (specimen) 02/24/2017 6:26 AM EST 02/24/2017 6:34 AM EST Narrative Resulting Agency Comment Spec In Lab Carley Crockett Jr., MD HEMATOLOGY ORDERAB LES Performing Organization Address City/State/[facility] Co de Phone Number [facility] [place] [address] * Basic Metabolic Panel (non-fasting) (02/24/2017 6:26 AM EST) Glucose 96 65 - 199 mg/dL [facility] Comment:Diabetes: >=200 mg/d L plus symptoms Blood Urea Nitrogen 13 10 - 20 mg/dL [facility] Creatinine 0.91 0.80 - 1.50 mg/dL [facility] Sodium 141 135 - 145 mmol/L [facility] Potassium 4.1 3.5 - 5.0 mmol/L [facility] Comment: Please note: ??Patients with WBC >100,000 may have falsely elevated Potassium levels. ??For accurate Potassium quantification in these patients send serum separator tube (gold top) for subsequent determinations. ??Contact the Clinical Chemistry Laboratory if there are any questions. Chloride 101 98 - 107 mmol/L [facility] Carbon Dioxide 29 22 - 31 mmol/L [facility] Anion Gap 11 5 - 15 mmol/L [facility] Calcium 9.3 8.5 - 10.5 mg/dL [facility] Est Glomerular Filtration Rate >60 >=60 [facility] Comment: The reported eGFR should be multiplied by 1.2 for patients. The MDRD is not an appropriate measure of renal function for patients with body mass extremes or in patients with acute kidney failure. [email or web address] Blood specimen (specimen) 02/24/2017 6:26 AM EST 02/24/2017 6:34 AM EST Narrative Resulting Agency Comment Spec In Lab Carley Crockett Jr., MD CHEMISTRY ORDERABL ES [facility] [place] [address] * SCAN DOC: IMPLANTABLE DEVICES (02/24/2017 12:00 AM EST) Narrative 02/24/2017 12:00 AM EST Ordered by an unspecified provider. Scanning Provider MEDIA MGR SCAN EXT O RDR/RSLT documented in this encounter Visit Diagnoses Diagnosis Nephrolithiasis Calculus of kidney Renal stone Calculus of kidney documented in this encounter Admitting Diagnoses Diagnosis Renal stone Calculus of kidney documented in this encounter Administered Medications Inactive Administered Medications - up to 3 most recent administrations Medication Order MAR Action Action Date Dose Rate Site acetaminophen (TYLENOL) tablet 1,000 mg 1,000 mg, Oral, ONCE, 1 dose, On Dagmar 02/24/17 at 0715, Maximum dose of acetaminophen is 4000 mg from all sources in 24 hours., Day of Surgery (Day of Procedure), Routine Given 02/24/2017 7:19 AM EST 1,000 mg acetaminophen (TYLENOL) tablet 1,000 mg 1,000 mg, Oral, EVERY 6 HOURS PRN, Starting on Dagmar 02/24/17 at 1036, Until Dagmar 02/24/17 at 1456, Pain, Routine lactated Ringers infusion 1,000 mL 1,000 mL, at 100 mL/hr, Intravenous, CONTINUOUS, Starting on Dagmar 02/24/17 at 0715, Until Dagmar 02/24/17 at 1037, Day of Surgery (Day of Procedure) New Bag 02/24/2017 7:23 AM EST 1,000 mLs 100 mL/hr oxyCODONE (ROXICODONE) immediate release tablet 5 mg 5 mg, Oral, EVERY 4 HOURS PRN, Starting on Dagmar 02/24/17 at 1036, Until Dagmar 02/24/17 at 1456, Pain, if pain not controlled by tylenol, Routine documented in this encounter Active and Recently Administered Medications Times are shown in EST. Scheduled Medication Order 02/22/2017 02/23/2017 02/24/2017 acetaminophen (TYLENOL) tablet 1,000 mg (COMPLETED) 1,000 mg, Oral, ONCE, 1 dose, On Dagmar 02/24/17 at 0715, Maximum dose of acetaminophen is 4000 mg from all sources in 24 hours., Day of Surgery (Day of Procedure), Routine 0719 (Given - Provid er: Courtney Chan RN) acetaminophen (TYLENOL) tablet 1,000 mg 1,000 mg, Oral, EVERY 6 HOURS SCHEDULED, First dose on Dagmar 02/24/17 at 1200, Until Discontinued, Routine 1200 (Due) ampicillin 2g vial attach to sodium chloride 0.9% 100 mL Mini-Bag Plus (COMPLETED) 2,000 mg (2 g), Intravenous, CATTLE KNOCKER TO O.R., 1 dose, On Dagmar 02/24/17 at 0715, Administer over 15 Minutes, Day of Surgery (Day of Procedure), Indication for (Active or Suspected): Prophylaxis 0751 (New Bag - Prov ider: Nathan Zapata) gentamicin (GARAMYCIN) 166.8 mg in sodium chloride 0.9% 104.17 mL (COMPLETED) 166.8 mg (rounded from 166.6 mg = 2 mg/kg/dose ? 83.3 kg Adjusted weight), Intravenous, 60 MIN PRE-OP, 1 dose, On Dagmar 02/24/17 at 0715, Administer over 60 Minutes, Day of Surgery (Day of Procedure), Indication for (Active or Suspected): Prophylaxis 0751 (New Bag - Prov ider: Nathan Zapata)0851 (Stopped - Provider: Nathan Zapata) Continuous Medication Order 02/22/2017 02/23/2017 02/24/2017 lactated Ringers infusion 1,000 mL (CANCELED) 1,000 mL, at 100 mL/hr, Intravenous, CONTINUOUS, Starting on Dagmar 02/24/17 at 0715, Until Dagmar 02/24/17 at 1037, Day of Surgery (Day of Procedure) 0723 (New Bag - Prov ider: Courtney Chan RN)0805 (Canceled Entry - Provider: Nathan Zapata)1011 (Anesthesia Volume Adjustment - Provider: Nathan Zapata) PRN Medication Order 02/22/2017 02/23/2017 02/24/2017 acetaminophen (TYLENOL) tablet 1,000 mg 1,000 mg, Oral, EVERY 6 HOURS PRN, Starting on Dagmar 02/24/17 at 1036, Until Dagmar 02/24/17 at 1456, Pain, Routine iohexol (OMNIPAQUE) 300 mg/mL solution (CANCELED) ONCE PRN, Starting on Dagmar 02/24/17 at 0838, Until Dagmar 02/24/17 at 1456, Intra-Operative (Intra-Procedure), Routine 0838 (Given - Provid er: Carley Crockett Jr., MD - Comment: mixed 1:1 with NaCl) oxyCODONE (ROXICODONE) immediate release tablet 5 mg 5 mg, Oral, EVERY 4 HOURS PRN, Starting on Dagmar 02/24/17 at 1036, Until Dagmar 02/24/17 at 1456, Pain, if pain not controlled by tylenol, Routine oxyCODONE (ROXICODONE) immediate release tablet 5-10 mg 5-10 mg, Oral, EVERY 4 HOURS PRN, Starting on Dagmar 02/24/17 at 1037, Until Dagmar 02/24/17 at 1456, Pain, give 5 mg for pain 1-5/10, give 10 mg for pain 6-10/10, Routine documented in this encounter Care Teams Senior Auditor Relationship Specialty Start Date End Date Susan Fernández MD [address] [place] [address] PCP - General Family Medicine 10/27/16 01/19/23 documented as of this encounter
--- OUTSIDE RECORDS SUMMARY | 2024-01-23 15:48 | XMS_ITS | Encounter Summary ---
Author Organization [facility] Address [facility] [place] [address] Care Team Providers Care Lead Laying And Gluing Machine Operator Name Role Phone Susan Fernández MD Primary Care Provider Reason for Visit * Reason Comments Nephrolithiasis Encounter Details Date Type Department Care Team (Late st Contact Info) Description 03/04/2017 8:00 AM EST [place] [address] Carley Crockett Jr., MD [facility] [place] [address] Nephrolithiasis Social History Tobacco Use Types Packs/Day [...] Sign Reading Time Taken Comments Blood Pressure 118/75 03/04/2017 8:26 AM EST Pulse 66 03/04/2017 8:26 AM EST Temperature 36.6 ??C (97.8 ??F) 03/04/2017 8:26 AM ES T Respiratory Rate - - Oxygen Saturation 99% 03/04/2017 8:26 AM EST Inhaled Oxygen Concentration - - Weight - - Height - - Body Mass Index - - documented in this encounter Patient Instructions * Patient Instructions* Matt Gifford RN - 03/04/2017 8:00 AM EST Instructions following Cystoscopy Activity: As tolerated by your comfort level. Fluids: You should increase your water today. Avoid coffee, tea and cola. You do not need to ounces of water today. Urination: You will likely have a small amount of blood in your urine for the next several days. This is normal; however, if you are passing large amounts of blood clots or are unable to void please call our office at [phone] before 5PM or [phone] after hours. Please call if: * you have copious blood in your urine * fevers greater than 101.3 F * you are unable to void The number for questions is [phone] before 5 PM weekdays and [phone] after 5 PM and weekends. Follow-up: Follow-up in [address] Crockett, renal ultrasound to proceed. documented in this encounter Procedure Notes * Carley Crockett Jr., MD - 03/04/2017 8:00 AM ESTAssociated Order(s): CYSTO, STENT REMOVAL Pre-Procedure Diagnose(s): Nephrolithiasis HPI: Jerad Jauregui is a 61 y.o. male who returns for left ureteral stent removal after undergoing left ureteroscopy and left renal access (although left PCNL not performed after discussion with his as stones appeared fully excluded from collecting system). He initially saw Dr Linda in 2012 for bilateral nephrolithiasis. He underwent bilateral SWL in 07/2013. He had residual left renal stones. U/S 11/2014 suggested large left renal pelvic stone although f/u CT revealed this to actually be 2 adjacent stones, each approximately 8-10 mm. We had reviewed mgmt options and he elected to proceed with left renal SWL. Follow up u/s continued to suggest approx1.7 cm left renal stone. Thus, we decided to follow up today (6 months after last u/s) with CT to better assess stone burden. He notes he was warned that his cosopt eye drops could potentially increase stone risk and review confirms it contains a carbonic anyhdrase --dorzolamide. ? He also has a long history of [...] with medical management with flomax and finasteride. He underwent left URS / perc access without dilation on 02/24/17. Intraoperative findings were notable for small left renal stone, fragmented with laser and extracted ureteroscopically. The arge stone seen on CT scan not seen on endoscopic inspection, suspect within a walled-off/excluded calyx or di verticulum. Percutaneous access into the diverticulum was obtained, but given no mouth/walled off nature, as well as lack of symptoms discussion had with pt's and elected not to dilate and remove the stone. He had an unremarkable postoperative course and presents today for planned stent removal. PMHx: BPH; nephrolithiasis; glaucoma PSHx: tonsillectomy; bilat IH repair; cataract excision; bilateral renal SWL SocHx: no tobacco; occ'l EtOH; CPA Stone Analysis: ?? 70% Calcium oxalate monohydrate 20% Calcium phosphate (apatite) ?? 10% Calcium oxalate dihydrate We discussed the procedure, risks and planned benefit. We discussed the need to remove the stent asthey cannot stay in indefinitely, as well as the risk of possible need for stent or nephrostomy replacement if there was any residual or future ureteral obstruction. Informed consent was obtained. eJrad Jauregui was taken to the cystoscopy room and prepped and draped by our urology nurse. Prophylactic antibiotic administration was confirmed. Topical viscous lidocaine gel was applied to the urethra for local anesthetic. A timeout was performed. Flexible cystoscopy was performed. The urethra waswithout abnormality. The bladder was entered and inspected. No focal mucosal abnormality was seen. The stent was seen emanating from the left ureteral orifice. It was grasped and extracted. It was inspected and found to be intact. He tolerated the procedure well. I instructed Jerad Jauregui of the need to return in approximately 6 weeks for renal ultrasound to ensure that there is no residual hydronephrosis. I cautioned him to contact us immediately with increasing pain, fever, or chills as this could suggest obstruction and may need to be further evaluated on an urgent or emergent basis. I have asked him to call with any additional questions. Impression/Plan: Doing well s/p left urs . Stent removed without difficulty. 1) Plan reimaging in 6 weeks to assess for resolution of any hydronephrosis 2)Mixed CaOx stone. We previously reviewedgeneral dietary modifications for those with CaOx stones. documented in this encounter Plan of Treatment Upcoming Encounters Date Type Department Care Team (Late st Contact Info) Description 01/25/2025 8:15 AM EDT Office Visit Dermatology at [place] [address] [place] [address] Cortez Bey MD [address] [place] [address] documented as of this encounter Procedures Procedure Name Priority Date/Time Associated Diagnosis Comments US RETROPERITONEAL COMPLETE Routine 04/19/2017 11:41 AM EST CYSTO, STENT REMOVAL Routine 03/04/2017 9:25 AM EST Nephrolithiasis documented in this encounter Results * US Retroperitoneal Complete (04/19/2017 11:41 AM EST) Anatomical Region Laterality Modality Abdomen Ultrasound 04/19/2017 11:3 6 AM EST Impressions 04/19/2017 12:36 PM EST ??1. ??Unchanged 1.9 cm left mid pole renal calculus with interval mild caliectasisat the mid pole.2. ??Previously demonstrated 0.6 cm left mid pole renal calculus is notvisualized today.3. ??No sonographically evident right renal or bladder calculi. No rightcollecting system dilatation. ?Suni Baker MD Electronically Signed Final Report ?? 04/19/2017 12:36 pm Narrative 04/19/2017 12:36 PM EST Renal ? (Signed Final 04/19/2017 12:36 pm) PATIENT INFO: ID #: ? [id number] ?: ??[birth year] (61 yrs) Name: ? JERAD JAUREGUI ? Visit Date: 04/19/2017 11:36 am PERFORMED BY: Performed By: ? Justine Sheehan RDMS Attending: ?Olivia CARIAS, Suni Castro. Referred By: ?CARLEY CROCKETT JR Location: ? [place] SERVICE(S) PROVIDED: ??URETRO - Retroperitoneal Complete - [id number] ? [id number] INDICATIONS: ??nephrolithiasis COMPARISON: Ultrasound: 10/27/16 -------- HISTORY: -------- Surgery done on stones in January 2017. RIGHT KIDNEY: Size (cm) ?L: ??10.1 Cortical Thickness: ?Normal Cortical Echogenicity: ?? Normal Hydronephrosis: ?No sonographic evidence Comment: ?No renal calculi seen. LEFT KIDNEY: Size (cm) ?L: ??11.4 Cortical Thickness: ?Normal Cortical Echogenicity: ?? Normal Hydronephrosis: ?Mild caliectasis mid pole Comment: ?Approximately 1.9 cm mid pole calculus, ? unchanged. ? Previously seen 0.6 cm mid pole calculus is not ? visualized today. URINARY BLADDER: Pre-void (cm) ? L: ??4.1 ? AP: ??4.2 ? TV: ??7.3 Vol (ml): ?65.8 Comment: ?Partially distended, normal contour. ??No bladder ? calculi. Procedure Note Suni Baker MD - 04/19/2017 Renal (Signed Final 04/19/2017 12:36 pm) PATIENT INFO: ID #: [id number] : [birth year] (61 yrs) Name: JERAD JAUREGUI Visit Date: 04/19/2017 11:36 am PERFORMED BY: Performed By: Justine Sheehan RDMS Attending: Suni Baker MD Referred By: CARLEY CROCKETT JR Location: [place] SERVICE(S) PROVIDED: URETRO - Retroperitoneal Complete - [id number] INDICATIONS: nephrolithiasis COMPARISON: Ultrasound: 10/27/16 -------- HISTORY: -------- Surgery done on stones in January 2017. RIGHT KIDNEY: Size (cm) L: 10.1 Cortical Thickness: Normal Cortical Echogenicity: Normal Hydronephrosis: No sonographic evidence Comment: No renal calculi seen. LEFT KIDNEY: Size (cm) L: 11.4 Cortical Thickness: Normal Cortical Echogenicity: Normal Hydronephrosis: Mild caliectasis mid pole Comment: Approximately 1.9 cm mid pole calculus, unchanged. Previously seen 0.6 cm mid pole calculus is not visualized today. URINARY BLADDER: Pre-void (cm) L: 4.1 AP: 4.2 TV: 7.3 Vol (ml): 65.8 Comment: Partially distended, normal contour. No bladder calculi. IMPRESSION 1. Unchanged 1.9 cm left mid pole renal calculus with interval mild caliectasisat the mid pole.2. Previously demonstrated 0.6 cm left mid pole renal calculus is notvisualized today.3. No sonographically evident right renal or bladder calculi. No rightcollecting system dilatation. Suni Baker MD Electronically Signed Final Report 04/19/2017 12:36 pm Carley Crockett Jr., MD [facility] [place] GEN ORDERAB LES * Cysto, Stent Removal, clinic (03/04/2017 9:25 AM EST) Narrative Carley Crockett Jr., MD - 03/04/2017 9:25 AM EST Carley Crockett Jr., MD ? 03/04/2017 ??9:25 AM HPI: ??Jerad Jauregui is a 61 y.o. male who returns for left ureteral stent removal after undergoing left ureteroscopy and left renal access (although left PCNL not performed after discussion with his as stones appeared fully excluded from collecting system). ?? He initially saw Dr Linda in 2012 for bilateral nephrolithiasis. He underwent bilateral SWL in 07/2013. He had residual left renal stones. U/S 11/2014 suggested large left renal pelvic stone although f/u CT revealed this to actually be 2 adjacent stones, each approximately ??8-10 mm. We had reviewed mgmt options and he elected to proceed with left renal SWL. ??Follow up u/s continued to suggest approx 1.7 cm left renal stone. Thus, we decided to follow up today (6 months after last u/s) with CT to better assess stone burden. ??He notes he was warned that his cosopt eye drops could potentially increase stone risk and review confirms it contains a carbonic anyhdrase --dorzolamide. ? He also has a long history of recognized enlarged prostate, managed with flomax x 15 years (Dr Valadez). He had an elevated PSA and had biopsy (10/2008) that was reportedly negative. He had a follow up biopsy for prostate asymmetry (01/06) that was also negative. Since then, he has opted not to continue with prostate cancer screening and has declined KIRK here. ??His LUTS have been controlled with medical management with flomax and finasteride. He underwent left URS / perc access without dilation on 02/24/17. Intraoperative findings were notable for small left renal stone, fragmented with laser and extracted ureteroscopically. The arge stone seen on CT scan not seen on endoscopic inspection, suspect within a walled-off/excluded calyx or diverticulum. Percutaneous access into the diverticulum was obtained, but given no mouth/walled off nature, as well as lack of symptoms discussion had with pt's and elected not to dilate and remove the stone. ??He had an unremarkable postoperative course ??and presents today for planned stent removal. PMHx: BPH; nephrolithiasis; glaucoma PSHx: tonsillectomy; bilat IH repair; cataract excision; bilateral renal SWL SocHx: no tobacco; occ'l EtOH; CPA Stone Analysis: ?? 70% Calcium oxalate monohydrate ??20% Calcium phosphate (apatite) ?? 10% Calcium oxalate dihydrate We discussed the procedure, risks and planned benefit. We discussed the need to remove the stent as they cannot stay in indefinitely, as well as the risk of possible need for stent or nephrostomy replacement if there was any residual or future ureteral obstruction. Informed consent was obtained. Jerad Jauregui was taken to the cystoscopy room and prepped and draped by our urology nurse. ??Prophylactic antibiotic administration was confirmed. ??Topical viscous lidocaine gel was applied to the urethra for local anesthetic. A timeout was performed. ??Flexible cystoscopy was performed. ??The urethra was without abnormality. ??The bladder was entered and inspected. ??No focal mucosal abnormality was seen. ??The stent was seen emanating from the left ureteral orifice. ??It was grasped and extracted. ?? It was inspected and found to be intact. ??He tolerated the procedure well. ?? I instructed ??Jerad Jauregui ??of the need to return in approximately 6 weeks for renal ultrasound to ensure that there is no residual hydronephrosis. ??I cautioned him to contact us immediately with increasing pain, fever, or chills as this could suggest obstruction and may need to be further evaluated on an urgent or emergent basis. ??I have asked him to call with any additional questions. Impression/Plan: Doing well s/p left urs . ??Stent removed without difficulty. 1) Plan reimaging in 6 weeks to assess for resolution of any hydronephrosis 2)Mixed CaOx stone. We previously reviewedgeneral dietary modifications for those with CaOx stones. Carley Crockett Jr., MD URO PROCEDURE W RF L ORDERABLES documented in this encounter Visit Diagnoses Diagnosis Nephrolithiasis Calculus of kidney documented in this encounter Care Teams Lead Laying And Gluing Machine Operator Relationship Specialty Start Date End Date Susan Fernández MD [address] [place] [address] PCP - General Family Medicine 10/27/16 01/19/23 documented as of this encounter
--- OUTSIDE RECORDS SUMMARY | 2024-01-23 15:48 | XMS_ITS | Encounter Summary ---
Author Organization [facility] [place] [address] Care Team Providers Care Book Binder Name Role Phone Belen Bhagat APRN Primary Care Provider [phone] Encounter Details Date Type Department Care Team (Latest Contact Info) Description 08/24/2023 Travel Social History Tobacco Use Types Packs/Day [...] 8:15 AM EDT Office Visit Dermatology at [place] [address] [place] [id number] Cortez Bey MD [address] [place] [address] documented as of this encounter Visit Diagnoses Not on filedocumented in this encounter Care Teams Book Binder Relationship Specialty Start Date End Date Belen Bhagat APRN [address] [place] [address] PCP - General Family Medicine 01/20/23 documented as of this encounter
--- OUTSIDE RECORDS SUMMARY | 2024-01-23 15:48 | XMS_ITS | Encounter Summary ---
Author Organization [facility] Address [facility] [place] [address] Care Team Providers Care Showroom Executive Director Name Role Phone Susan Fernández MD Primary Care Provider Encounter Details Date Type Department Care Team (Late Contact Info) Description 02/03/2017 [place] [address] Shantanu Goodman Jr., MD [facility] [place] [address] Social History Tobacco Use Types Packs/Day Years [...] encounter Miscellaneous Notes * Telephone Encounter - Emerita Garcia - 02/03/2017 9:35 AM EST Pt is returning Ana's phone call. Please call [phone] documented in this encounter Plan of Treatment Upcoming Encounters Date Type Department Care Team (Late st Contact Info) Description 01/25/2025 8:15 AM EDT Office Visit Dermatology at [address] [address] Cortez Bey MD [address] [facility], [place] [address] documented as of this encounter Visit Diagnoses Not on filedocumented in this encounter Care Teams Showroom Executive Director Relationship Specialty Start Date End Date Susan Fernández MD [address] [place] [address] PCP - General Family Medicine 10/27/16 01/19/23 documented as of this encounter
--- OUTSIDE RECORDS SUMMARY | 2024-01-23 15:48 | XMS_ITS | Encounter Summary ---
Author Organization [facility] [place] [address] Care Team Providers Care Ur Coordinator Name Role Phone Belen Bhagat APRN Primary Care Provider Encounter Details Date Type Department Care Team (Late st Contact Info) Description 04/08/2023 Orders Only Urology at [facility] [place] [address] Kari Gann LOAN SPECIALIST [facility] [place] [address] Social History Tobacco Use Types Packs/Day Years [...] 8:15 AM EDT Office Visit Dermatology at [place] [address] [facility] [place] [phone] Cortez Bey MD [address] [facility], [place] [address] documented as of this encounter Visit Diagnoses Not on filedocumented in this encounter Care Teams Ur Coordinator Relationship Specialty Start Date End Date Belen Bhagat APRN [address] [place] [address] PCP - General Family Medicine 01/20/23 documented as of this encounter
--- OUTSIDE RECORDS SUMMARY | 2024-01-23 15:48 | XMS_ITS | Encounter Summary ---
Author Organization [facility] [place] [address] Care Team Providers Care Ops Manager Name Role Phone Belen Bhagat APRN Primary Care Provider [phone] Encounter Details Date Type Department Care Team (Latest Contact Info) Description 12/06/2023 Travel Social History Tobacco Use Types Packs/Day [...] 8:15 AM EDT Office Visit Dermatology at [place] [address] [facility] [place] [phone] Cortez Bey MD 580 [facility], [place] [address] documented as of this encounter Visit Diagnoses Not on filedocumented in this encounter Care Teams Ops Manager Relationship Specialty Start Date End Date Belen Bhagat APRN [address] [place] [address] PCP - General Family Medicine 01/20/23 documented as of this encounter
--- OUTSIDE RECORDS SUMMARY | 2024-01-23 15:48 | XMS_ITS | Encounter Summary ---
Author Organization [facility] Address [facility] [place] [address] Care Team Providers Care Medical Support Specialist Name Role Phone Susan Fernández MD Primary Care Provider [phone] Encounter Details Date Type Department Care Team (Latest Contact Info) Description 04/03/2019 10:25 AM EST - 04/03/2019 11:59 PM [facility] [place] [address] Carley Crockett Jr., MD [facility] [place] [address] Nephrolithiasis Discharge Disposition: Home Social History Tobacco [...] Dispensed Refills Start Date End Date VIT C/E/ZN/COPPR/LUTEIN/ZEAXA N (PRESERVISION AREDS 2 ORAL) Take by mouth 2 times daily. finasteride (PROSCAR) 5 mg tablet Take 5 mg by mouth daily. loteprednol (LOTEMAX) 0.5 % Drops, SuspensionIndications:Radha pantoja open-angle glaucoma, left eye, mild stage Place [...] 8:15 AM EDT Office Visit Dermatology at [place] 580 [facility] [place] [phone] Cortez Bey MD [address] [facility] [address], VIN[place] [address] documented as of this encounter Procedures Procedure Name Priority Date/Time Associated Diagnosis Comments US RETROPERITONEAL COMPLETE Routine 04/03/2019 10:48 AM EST Nephrolithiasis documented in this encounter Results * US Retroperitoneal Complete (04/03/2019 10:48 AM EST) Anatomical Region Laterality Modality Abdomen Ultrasound 04/03/2019 10:4 9 AM EST Impressions 04/03/2019 11:06 AM EST 1. ??Two nonobstructing left renal calculi, largest measuring approximately 2 cm; renal stone burden is similar to the 10/27/2016 renal ultrasound. 2. ??No other sonographically evident nephrolithiasis. No renal collecting system dilatation. 3. ??Limited evaluation of the bladder due to incomplete distention. Thank you for letting us participate in the care of this patient. For questions regarding this report, please contact the number below. ? Suni Baker, Staff Physician Electronically Signed Final Report ?? 04/03/2019 11:06 am Narrative 04/03/2019 11:06 AM EST Renal ? (Signed Final 04/03/2019 11:06 am) PATIENT INFO: ID #: ? [id number] ?: ??[birth year] (63 yrs) Name: ? JERAD JAUREGUI ? Visit Date: 04/03/2019 10:49 am PERFORMED BY: Performed By: ? Kristian Perez RDMS Attending: ?Olivia CARIAS, Suni Aguayo Referred By: ?CARLEY CROCKETT Location: ? [facility] SERVICE(S) PROVIDED: ??URETRO - Retroperitoneal Complete - [id number] ? [id number] INDICATIONS: ??? stones COMPARISON: Ultrasound: Renal / Bladder 04/19/17 RIGHT KIDNEY: Size (cm) ?L: ??10.6 Cortical Thickness: ?Normal Cortical Echogenicity: ?? Normal Hydronephrosis: ?No sonographic evidence Ureter: ?Not visualized Comment ? No renal calculi seen. : LEFT KIDNEY: Size (cm) ?L: ??11.4 Cortical Thickness: ?Normal Cortical Echogenicity: ?? Normal Hydronephrosis: ?No sonographic evidence Ureter: ?Not visualized Comment ? Two nonobstructing renal calculi seen largest : ? seen in mid - inferior interpolar region measuring ? 19 mm and 9 mm. URINARY BLADDER: Pre-void (cm) ? L: ??2.3 ? AP: ??2.3 ? TV: ??4.9 Vol (ml): ?13.6 Comment ? Partially distended, limited views. : Procedure Note Suni aBker MD - 04/03/2019 Renal (Signed Final 04/03/2019 11:06 am) PATIENT INFO: ID #: [id number] : [birth year] (63 yrs) Name: JERAD JAUREGUI Visit Date: 04/03/2019 10:49 am PERFORMED BY: Performed By: Kristian Perez RDMS Attending: Suni Baker MD Referred By: CARLEY CROCKETT JR Location: [facility] SERVICE(S) PROVIDED: URETRO - Retroperitoneal Complete - [id number] INDICATIONS: ? stones COMPARISON: Ultrasound: Renal / Bladder 04/19/17 RIGHT KIDNEY: Size (cm) L: 10.6 Cortical Thickness: Normal Cortical Echogenicity: Normal Hydronephrosis: No sonographic evidence Ureter: Not visualized Comment No renal calculi seen. : LEFT KIDNEY: Size (cm) L: 11.4 Cortical Thickness: Normal Cortical Echogenicity: Normal Hydronephrosis: No sonographic evidence Ureter: Not visualized Comment Two nonobstructing renal calculi seen largest : seen in mid - inferior interpolar region measuring 19 mm and 9 mm. URINARY BLADDER: Pre-void (cm) L: 2.3 AP: 2.3 TV: 4.9 Vol (ml): 13.6 Comment Partially distended, limited views. : IMPRESSION 1. Two nonobstructing left renal calculi, largest measuring approximately 2 cm; renal stone burden is similar to the 10/27/2016 renal ultrasound. 2. No other sonographically evident nephrolithiasis. No renal collecting system dilatation. 3. Limited evaluation of the bladder due to incomplete distention. Thank you for letting us participate in the care of this patient. For questions regarding this report, please contact the number below. Suni Baker, Staff Physician Electronically Signed Final Report 04/03/2019 11:06 am Carley Crockett Jr., MD IM US GEN ORDERAB LES documented in this encounter Visit Diagnoses Diagnosis Nephrolithiasis Calculus of kidney documented in this encounter Care Teams Medical Support Specialist Relationship Specialty Start Date End Date Susan Fernández MD [address] [place] [address] PCP - General Family Medicine 10/27/16 01/19/23 documented as of this encounter
--- OUTSIDE RECORDS SUMMARY | 2024-01-23 15:48 | XMS_ITS | Encounter Summary ---
Author Organization [facility] [place] [address] Care Team Providers Care Potash Flaker Name Role Phone Belen Bhagat APRN Primary Care Provider [phone] Encounter Details Date Type Department Care Team (Late st Contact Info) Description 01/20/2023 Refill Dermatology at [address] [phone] Irene Encinas LPN Social History Tobacco Use Types Packs/Day Years [...] 8:15 AM EDT Office Visit Dermatology at [address] [phone] Cortez Bey MD [address] [place] [address], [facility] [place], [place] [phone] documented as of this encounter Visit Diagnoses Not on filedocumented in this encounter Care Teams Potash Flaker Relationship Specialty Start Date End Date Belen Bhagat APRN [address] [place] [address] PCP - General Family Medicine 01/20/23 documented as of this encounter
--- OUTSIDE RECORDS SUMMARY | 2024-01-23 15:48 | XMS_ITS | Encounter Summary ---
Author Organization [facility] Address [facility] [place] [address] Care Team Providers Care Motel Operator Name Role Phone Susan Fernández MD Primary Care Provider [phone] Reason for Visit * Reason Comments Nephrolithiasis Encounter Details Date Type Department Care Team (Late st Contact Info) Description 10/27/2016 2:00 PM EDT Office [place] [address] Shantanu Goodman Jr., MD [facility] [place] [address] Nephrolithiasis Social History Tobacco Use Types Packs/Day [...] Sign Reading Time Taken Comments Blood Pressure 129/77 10/27/2016 2:32 PM EDT Pulse 65 10/27/2016 2:32 PM EDT Temperature 36.8 ??C (98.2 ??F) 10/27/2016 2:32 PM ED T Respiratory Rate - - Oxygen Saturation 98% 10/27/2016 2:32 PM EDT Inhaled Oxygen Concentration - - Weight - - Height - - Body Mass Index - - documented in this encounter Progress Notes * Shantanu Goodman Jr., MD - 10/27/2016 2:00 PM EDT HPI: Jerad Jauregui is a 61 y.o. gentleman who returns for urologic follow up regarding 1.8cm Left lower pole nephrolithiasis. He most recently underwent left renal SWL 01/24/15. Postoperatively, he remained comfortable but passed only minimal amounts of stone. He initially saw Dr Linda in 2012 [...] u/s) with CT to better assess stone burden, approx 1.5cm. He notes he was warned that his cosopt eye drops could potentially increase stone risk and review confirms it contains a carbonic anyhdrase --dorzolamide. He also has a long history of [...] stone passage, renalcolic, or other new complaints. Review of Systems Constitution: Negative for fever. Cardiovascular: Negative for chest pain. Respiratory: Negative for shortness of breath. Hematologic/Lymphatic: Does not bruise/bleed easily. Gastrointestinal: Negative for abdominal pain. Genitourinary: Negative for flank pain and hematuria. 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 He appears well- developed and well-nourished. No distress. HENT: Head: Normocephalic and atraumatic. Eyes: No scleral icterus. Cardiovascular: Normal rate and regular rhythm. Pulmonary/Chest: Effort normal and breath sounds normal. No respiratory distress. He has no wheezes. He has no rales. He exhibits no tenderness. Abdominal: Soft. He exhibits no distension. There is no tenderness. There is no rebound and no guarding. Genitourinary: Genitourinary Comments: No CVA tenderness to percussion bilaterally Musculoskeletal: He exhibits no edema or tenderness. Neurological: He is alert and oriented to person, place, and time. Skin: Skin is warm and dry. He is not diaphoretic. Psychiatric: He has a normal mood and affect. His behavior is normal. Imaging Studies: I independently reviewed the renal u/s from today and his prior CT from 02/2016. Again noted large left lower pole stone, approximately 1.8 cm, without hydronephrosis. U/S also suggests smaller mid renal (3-5mm) as well as lower pole stones, also seen on CT Impression/Plan: 1) Left renal stone(s) -- We discussed management options of watchful waiting, open or laparoscopicsurgery, PCNL, Ureteroscopy, and SWL and the relative risks and benefits of each. We discussed thatstones are asymptomatic and may remain so indefinitely, however, he is concerned they may become symptomatic when he is older and less able to tolerate intervention. He declines repeat trial of SWL. W e discussed possibility that stone is parenchymal / not accessible, and discussed role of ureteroscopy to better assess. He declines dedicated ureteroscopy, wishes to proceed with PCNL instead, with plan to inspect ureteroscopically while prone prior to PCNL, but he understands we may not be able to access kidney ureteroscopically at that time, and if so would prefer to still proceed with PCNL ifpossible. With regard to left percutaneous nephrolithotomy, we specifically discussed risks of bleeding, infection, injury to or loss of kidney, and injury to surrounding structures including lung, pleura, bowel, blood vessels, nerves, and solid organs, as well as risks of anesthesia including heart attack, stroke, DVT, pulmonary embolus, or . We discussed that there may be a need for subsequent staged procedures. He would like to attempt definitive removal of the left renal stones, understands the risks and benefits of the options, and has requested that we proceed with LEFT PCNL, perc renal access, and ureteroscopy (if possible). Urine will be sent for culture to aid in antibiotic selection. I have asked him to call with any additional questions. We discussed that PCNL cannot be performed in someone actively anticoagulated or taking antiplatelet agents. He has been instructed to not take any aspirin, aspirin containing compounds, or other antiplatelet or anticoagulant agents for the 10 days preoperatively. We also previously discussed pathophysiology of carbonic anhydrase induction of stones and I offered 24h urine to more carefully assess if he has developed alkaline urine and dRTA-type changes to suggest lithogenic effects from his eye drops. He had declined. 2)LUTS. Stable, with minimal bother. He had previously declined further investigation or intervention. Continue current course. documented in this encounter Plan of Treatment Upcoming Encounters Date Type Department Care Team (Late st Contact Info) Description 01/25/2025 8:15 AM EDT Office Visit Dermatology at [place] [address] [place] [address] Cortez Bey MD 580 [facility], [place] [address] documented as of this encounter Procedures Procedure Name Priority Date/Time Associated Diagnosis Comments URINE CULTURE Routine 10/27/2016 4:08 PM EDT Nephrolithiasis documented in this encounter Results * Basic Metabolic Panel (non-fasting) (02/24/2017 6:26 AM EST) Glucose 96 65 - 199 mg/dL [facility] Comment:Diabetes: >=200 mg/d L plus symptoms Blood Urea Nitrogen 13 10 - 20 mg/dL [facility] Creatinine 0.91 0.80 - 1.50 mg/dL [facility] Sodium 141 135 - 145 mmol/L [facility] Potassium 4.1 3.5 - 5.0 mmol/L [facility] Comment: Please note: ??Patients with WBC >100,000 may have falsely elevated Potassium levels. ??For accurate Potassium quantification in these patients send serum separator tube (gold top) for subsequent determinations. ??Contact the Clinical Chemistry Laboratory if there are any questions. Chloride 101 98 - 107 mmol/L [facility] Carbon Dioxide 29 22 - 31 mmol/L [facility] Anion Gap 11 5 - 15 mmol/L [facility] Calcium 9.3 8.5 - 10.5 mg/dL [facility] Est Glomerular Filtration Rate >60 >=60 [facility] Comment: The reported eGFR should be multiplied by 1.2 for patients. The MDRD is not an appropriate measure of renal function for patients with body mass extremes or in patients with acute kidney failure. http://ScanSocial/DHnkdep http://ScanSocial/DHMCnkf Blood specimen (specimen) 02/24/2017 6:26 AM EST 02/24/2017 6:34 AM EST Narrative Resulting Agency Comment Spec In Lab Shantanu Goodman Jr., MD CHEMISTRY ORDERABL ES Performing Organization Address [facility] Co de Phone Number [facility] [place] [address] * Urine culture Clean Catch Urine (10/27/2016 4:08 PM EDT) Urine Culture No growth (Less than 1,000 cfu/ml). [facility] Urine specimen obtained by clean catch procedure (specimen) 10/27/2016 4:08 PM EDT 10/27/2016 5:25 PM EDT Narrative Resulting Agency Comment Spec In Lab Shantanu Goodman Jr., MD MICROBIOLOGY - GEN ERAL ORDERABLES Performing Organization Address City/[facility]/ZIP Co de Phone Number [facility] [place] [address] documented in this encounter Visit Diagnoses Diagnosis Nephrolithiasis Calculus of kidney documented in this encounter Care Teams Motel Operator Relationship Specialty Start Date End Date Susan Fernández MD [address] [place] [address] PCP - General Family Medicine 10/27/16 01/19/23 documented as of this encounter
--- OUTSIDE RECORDS SUMMARY | 2024-01-23 15:48 | XMS_ITS | Encounter Summary ---
Author Organization [facility] Address [facility] [place] [address] Care Team Providers Care Coagulation Operator Name Role Phone Susan Fernández MD Primary Care Provider [phone] Encounter Details Date Type Department Care Team (Late st Contact Info) Description 02/02/2017 [place] [address] Shantanu Goodman Jr., MD [facility] [place] [address] Pre-op testing Social History Tobacco Use Types [...] 8:15 AM EDT Office Visit Dermatology at [place] [address] [place] [phone] Cortez Bey MD [address] [facility], [place] [address] documented as of this encounter Visit Diagnoses Diagnosis Pre-op testing Preoperative examination, unspecified documented in this encounter Care Teams Coagulation Operator Relationship Specialty Start Date End Date Susan Fernández MD [address] [place] [address] PCP - General Family Medicine 10/27/16 01/19/23 documented as of this encounter
--- OUTSIDE RECORDS SUMMARY | 2024-01-23 15:48 | XMS_ITS | Encounter Summary ---
Author Organization [facility] Address [facility] [place] [address] Care Team Providers Care Fuse Assembler Name Role Phone Susan Fernández MD Primary Care Provider [phone] Reason for Visit * Auth/Cert Specialty Diagnoses [...] Expiration Date Visits Re quested Visits Authorized [id number] 1 1 Encounter Details Date Type Department Care Team (Late st Contact Info) Description 02/24/2017 7:30 AM EST - 02/24/2017 11:47 AM EST [place] [id number] Carley Crockett Jr., MD [facility] [place] [address] CYSTOURETEROSCOPY,DIAG NOSTIC,W/ LITHOTRIPSY INC. INSERTION OF INDWELLING URETERAL STENT (WRVU 8) Social History Tobacco Use Types Packs/Day Years [...] side pain, you should call our office [phone] before 5PM or [phone] after hours. Remember, ureteral stent is a [...] to urinate please call our office at [phone] 5PM or [phone] after hours. Call Doctor for: Please call if you have copious blood in your urine, severe back or side pain, pain not controlled by pain medications, persistent nausea and vomiting, or for any fevers greater [id number] F. The number for questions is [phone] before 5 PM weekdays and [phone] after 5 PM and weekends. Pain Medication: [...] may be used if needed and are btel-zwx-ntrrolq (OTC) medications available at most local pharmacies. Prunes or prune juice, taken daily, can also be helpful for constipation treatment or prevention and are available at most supermarkets. Follow-up: We will see you in our clinic in 7-10 days for stent removal. Please call [phone] (clinic number for appointments) to confirm date [...] should be called to our clinic at [phone]. Narcotic renewals may be requested from 8am-4pm [...] documented in this encounter H&P Notes * HildaSelene delgado - 02/24/2017 6:28 AM EST Patient Name: Jerad Jauregui Age: 61 y.o. Date of : 1955 Attending Provider: Carley Crockett Jr., MD Jerad Jauregui is a 61 y.o. male presenting for LEFT percutaneous nephrolithotomy for left renal stone. No recent changes to health status since he saw Dr. Crockett in October 2016. His pre-op Ucx from [facility] on 02/10/2017 was negative. PMHx: BPH; [...] Selene Recio - 02/24/2017 10:51 AM EST [facility] [place] Patient Name: Jerad Jauregui : [id number] ?? Case Date: 02/24/2017 ?? Surgeon: Surgeon(s) [...] in October 2016. His pre-op Ucx from [facility] on 02/10/2017 was negative. Description of [...] Operative Note Patient Name: Jerad Jauregui : [id number] Case Date: 02/24/2017 Surgeon: Surgeon(s) and Role: [...] 8:15 AM EDT Office Visit Dermatology at [address] [place] [phone] Cortez Bey MD [address], [place] [address] documented as of this encounter Procedures Procedure [...] 02/24/2017 6:26 AM EST TYPE AND SCREEN ([facility] Routine 02/24/2017 6:26 AM EST BASIC METABOLIC PANEL STAT 02/24/2017 6:26 AM EST Nephrolithiasis IMPLANTABLE DEVICES SCAN 02/24/2017 12:00 AM EST documented in this encounter Results * XR Fluoro No Rad <1Hr - OR Use (02/24/2017 10:43 AM EST) Narrative RAD - 02/24/2017 11:43 AM EST This order does not need a radiologist interpretation. ?? Carley Crockett Jr., MD IMG FLUORO ORDERAB LES [place], [place] * Kidney Stone Analysis (02/24/2017 10:15 AM EST) Kidney Stone Analysis (MAY) Test ? Result ?Flag ??Unit ??RefValue ------- Kidney Stone Analysis ??Source: ?Left Renal ??1st Constituent: ?70% Calcium oxalate monohydrate ??2nd Constituent: ?20% Calcium phosphate (apatite) ??3rd Constituent: ?10% Calcium oxalate dihydrate ? ---ADDITIONAL INFORMATION------- ?This test was developed and its performance characteristics ?determined by [facility] in a manner consistent with CLIA ?requirements. This test has not been cleared or approved by ?the U.S. Food and Drug Administration. ?Test Performed by: ?[facility] ?[address] [place] [address] [facility] Calculus specimen (specimen) 02/24/2017 10:15 AM EST 02/24/2017 11:39 AM EST Narrative Resulting Agency Comment Spec In Lab Carley Crockett Jr., MD LAB SEND OUT ORDER BESSIE [facility] [place] [address] * ABORH Recheck Status (02/24/2017 6:26 AM EST) [facility] Recheck Order Order Placed [facility] ABORH Type Recheck Complete [facility] Blood specimen (specimen) 02/24/2017 6:26 AM EST 02/24/2017 6:35 AM EST Narrative Resulting Agency Comment Spec In Lab Carley Crockett Jr., MD BLOOD BANK LAB ORD ERABLES Performing Organization Address [facility] Co de Phone Number [facility] [place] [address] * Antibody screen (02/24/2017 6:26 AM EST) Pathologist [facility] Ab Screen Interp Negative [facility] Expires at [id number] on: 02/27/2017 [facility] Blood specimen (specimen) 02/24/2017 6:26 AM EST 02/24/2017 6:35 AM EST Narrative Resulting Agency Comment Spec In Lab Carley Crockett Jr., MD BLOOD BANK LAB ORD ERABLES Performing Organization Address City/[facility] Co de Phone Number [facility] [place] [address] * ABO/Rh Typing (02/24/2017 6:26 AM EST) ABORH Type A Pos [facility] Blood specimen (specimen) 02/24/2017 6:26 AM EST 02/24/2017 6:35 AM EST Narrative Resulting Agency Comment Spec In Lab Carley Crockett Jr., MD BLOOD BANK LAB ORD ERABLES Performing Organization Address City/[facility] Co de Phone Number [facility] [place] [address] * Differential, Automated (02/24/2017 6:26 AM EST) Neutrophil % 51.7 % [facility] Neutrophil Absolute 2.96 1.70 - 6.10 x10(3)/mcL [facility] Lymph % 36.6 % [facility] Lymphocytes Abs 2.1 0.9 - 3.2 x10(3)/[facility] Monocyte % 8.8 % [facility] Monocyte Abs 0.5 0.3 - 0.9 x10(3)/[facility] Eos % 1.8 % [facility] Eosinophils Abs 0.1 0.0 - 0.4 x10(3)/[facility] Basophil % 0.7 % [facility] Baso Absolute 0.0 0.0 - 0.1 x10(3)/[facility] Immature Gran % 0.40 % [facility] Comment: Immature granulocytes(IG's)percentage and absolute count will include metamyelocytes, myelocytes, and promyelocytes. Blood smears from CBCs yielding IG's will be scanned manually for concordance. If this scan disagrees with the automated IG or if promyelocytes are noted, a manual differential will be performed. Immature Gran Absolute 0.02 0.00 - 0.04 x10(3)/[facility] Blood specimen (specimen) 02/24/2017 6:26 AM EST 02/24/2017 6:34 AM EST Narrative Resulting Agency Comment Spec In Lab Carley Crockett Jr., MD HEMATOLOGY ORDERAB LES [facility] [place] [address] * (ABNORMAL) Hemogram (02/24/2017 6:26 AM EST) White Blood Cell 5.7 4.0 - 9.5 x10(3)/[facility] Red Blood Cell 4.94 4.58 - 5.54 x10(6)/[facility] Hemoglobin 15.0 13.7 - 16.5 gm/dL [facility] Hematocrit 46.3 40.5 - 48.5 % [facility] Mean Cell Volume 93.7(H) 82.9 - 93.[address] [facility] Mean Cell Hemoglobin 30.4 27.5 - 32.[address] [facility] Mean Cell Hemoglobin Concentration 32.4 32.0 - 35.7 gm/dL [facility] Platelet 192 145 - 357 x10(3)/mc L [facility] RDW Standard Deviation 42.9 36.0 - 45.[address] [facility] RDW coefficient of variation 12.4 11.4 - 13.8 % [facility] Mean Platelet Volume 10.0 7.6 - 12.[address] [facility] NRBC% auto 0.0 % [facility] NRBC Absolute 0.000 0.000 - 0.000 x10(3)/mc L [facility] Blood specimen (specimen) 02/24/2017 6:26 AM EST 02/24/2017 6:34 AM EST Narrative Resulting Agency Comment Spec In Lab Carley Crockett Jr., MD HEMATOLOGY ORDERAB LES [facility] [place] [address] * Basic Metabolic Panel (non-fasting) (02/24/2017 6:26 AM EST) Glucose 96 65 - 199 mg/dL [facility] Comment:Diabetes: >=200 mg/d L plus symptoms Blood Urea Nitrogen 13 10 - 20 mg/dL [facility] Creatinine 0.91 0.80 - 1.50 mg/dL [facility] Sodium 141 135 - 145 mmol/L [facility] Potassium 4.1 3.5 - 5.0 mmol/L [facility] Comment: Please note: ??Patients with WBC >100,000 may have falsely elevated Potassium levels. ??For accurate Potassium quantification in these patients send serum separator tube (gold top) for subsequent determinations. ??Contact the Clinical Chemistry Laboratory if there are any questions. Chloride 101 98 - 107 mmol/L [facility] Carbon Dioxide 29 22 - 31 mmol/L [facility] Anion Gap 11 5 - 15 mmol/L [facility] Calcium 9.3 8.5 - 10.5 mg/dL [facility] Est Glomerular Filtration Rate >60 >=60 [facility] Comment: The reported eGFR should be multiplied by 1.2 for patients. The MDRD is not an appropriate measure of renal function for patients with body mass extremes or in patients with acute kidney failure. http://WebRadar/DHnkdep http://WebRadar/DHMCnkf Blood specimen (specimen) 02/24/2017 6:26 AM EST 02/24/2017 6:34 AM EST Narrative Resulting Agency Comment Spec In Lab Carley Crockett Jr., MD CHEMISTRY ORDERABL ES [facility] [place] [id number] * SCAN DOC: IMPLANTABLE DEVICES (02/24/2017 12:00 AM EST) Narrative 02/24/2017 12:00 AM EST Ordered by an unspecified provider. Scanning Provider MEDIA MGR SCAN EXT O RDR/RSLT documented in this encounter Visit Diagnoses Not on filedocumented in this encounter Admitting Diagnoses Diagnosis Renal [...] Pain, Routine iohexol (OMNIPAQUE) 300 mg/mL solution ONCE PRN, Starting on Dagmar 02/24/17 at 0838, Until Dagmar 02/24/17 at 1456, Intra-Operative (Intra-Procedure), Routine Given 02/24/2017 8:38 AM EST 250 mLs 19- Surgical Site lactated Ringers infusion 1,000 mL 1,000 mL, at 100 mL/hr, Intravenous, CONTINUOUS, Starting on Dagmar 02/24/17 at 0715, Until Dagmar 02/24/17 at 1037, Day of Surgery (Day of Procedure) New Bag 02/24/2017 7:23 AM EST 1,000 mLs 100 mL/hr oxyCODONE (ROXICODONE) immediate release tablet 5 mg 5 mg, Oral, EVERY 4 HOURS PRN, Starting on Dagmar 02/24/17 at 1036, Until Adgmar 02/24/17 at 1456, Pain, if pain not controlled by tylenol, Routine documented in this encounter Active and Recently Administered Medications Times are shown in EST. Scheduled Medication Order 02/22/2017 02/23/2017 02/24/2017 acetaminophen (TYLENOL) tablet 1,000 mg (COMPLETED) 1,000 mg, Oral, ONCE, 1 dose, On Dagamr 02/24/17 at 0715, Maximum dose of acetaminophen [...] Plus (COMPLETED) 2,000 mg (2 g), Intravenous, FELLMONGERY WORKER TO O.R., 1 dose, On Dagmar 02/24/17 [...] Routine documented in this encounter Care Teams Fuse Assembler Relationship Specialty Start Date End Date Susan Fernández MD [address] [place] [address] PCP - General Family Medicine 10/27/16 01/19/23 documented as of this encounter
--- OUTSIDE RECORDS SUMMARY | 2024-01-23 15:48 | XMS_ITS | Encounter Summary ---
Author Organization [facility] Address [facility] [place] [address] Care Team Providers Care Precision Agronomist Name Role Phone Susan Fernández MD Primary Care Provider [phone] Encounter Details Date Type Department Care Team (Late st Contact Info) Description 04/19/2017 1:30 PM EST [place] [address] Carley Goodman Jr., MD [facility] [place] [address] Nephrolithiasis Social History Tobacco Use Types Packs/Day [...] Sign Reading Time Taken Comments Blood Pressure 121/69 04/19/2017 1:33 PM EST Pulse 80 04/19/2017 1:33 PM EST Temperature 36.7 ??C (98.1 ??F) 04/19/2017 1:33 PM ES T Respiratory Rate - - Oxygen Saturation 97% 04/19/2017 1:33 PM EST Inhaled Oxygen Concentration - - Weight - - Height - - Body Mass Index - - documented in this encounter Progress Notes * Danish Escoto MD - 04/19/2017 1:30 PM EST HPI: Amalia Jauregui is a 61 y.o. gentleman who [...] it contains a carbonic anyhdrase --dorzolamide. He underwent left URS / perc access [...] not to dilate and remove the stone. Uncomplicated stent removal 04 Mar 2017. He also has a long history of [...] passage, renalcolic, or other new complaints. He did not have any pain after stent removal. Review of Systems Constitution: Negative for fever. Cardiovascular: Negative for chest pain. Hematologic/Lymphatic: Does not bruise/bleed easily. Gastrointestinal: Negative [...] mood and affect. His behavior is normal. Stone Analysis: ?? 70% Calcium oxalate monohydrate 20% Calcium phosphate (apatite) ?? 10% Calcium oxalate dihydrate Imaging Studies: I independently reviewed the renal u/s from today. The previously noted LEFT interpolar stone remains; no other calculi noted on either side. Impression/Plan: 1) LEFT urolithiasis. No residual free stones on imaging today. We discussed general prevention strategies, including increased oral fluid intake and decrease salt intake. We had also previously discussed pathophysiology of carbonic anhydrase induction of stones and I had offered 24h urine to more carefully assess if he has developed alkaline urine and dRTA-type changes to suggest lithogenic effects from his eye drops. He had declined. 2) Left renal diverticular stone. As he remains asymptomatic at present, we will continue to monitor. Discussed the possibility of new stone symptoms or infection. If stone removal is required in the future, suspect it will have to be approached percutaneously. 3) LUTS. Stable, with minimal bother. He had previously declined further investigation or intervention. Continue current course. RTC 2 y with US RP, or sooner if new symptoms as above. STAFF ADDENDUM: I saw and examined Amalia Jauregui with Dr. Escoto, have independently reviewed his renal u/s, and concur with history, exam, impression, and plan as noted and amended above. CARLEY GOODMAN JR, MD * Carley Goodman Jr., MD - 04/19/2017 1:30 PM EST I saw and examined Amalia Jauregui with Dr. Escoto and have independently reviewed his imaging studies.I agree with history, exam, impression, and plan as noted. He opts to continue with watchful waiting for this left renal stone within suspected excluded calyceal diverticulum. He wishes to extend surveillance interval to 18-24 months. documented in this encounter Plan of Treatment Upcoming Encounters Date Type Department Care Team (Late st Contact Info) Description 01/25/2025 8:15 AM EDT Office Visit Dermatology at [place] [address] [place] [phone] Cortez Bey MD [address], [place] [address] documented as of this encounter Results * US Retroperitoneal Complete [...] 11:06 am) PATIENT INFO: ID #: ? [id number] ?: [birth year] (63 yrs) Name: ? AMALIA JAUREGUI ? Visit Date: 04/03/2019 10:49 am PERFORMED BY: Performed By: ? Kristian Perez RDMS Attending: ?Olivia CARIAS, Suni Aguayo Referred By: ?CARLEY GOODMAN Location: ? [place] SERVICE(S) PROVIDED: ??URETRO - Retroperitoneal Complete - [id number] ? [id number] INDICATIONS: ??? stones COMPARISON: Ultrasound: Renal / [...] distended, limited views. : Procedure Note Suni Baker MD - 04/03/2019 Renal (Signed Final 04/03/2019 11:06 am) PATIENT INFO: ID #: [id number] : [birth year] (63 yrs) Name: AMALIA JAUREGUI Visit Date: 04/03/2019 10:49 am PERFORMED BY: Performed By: Kristian Perez RDMS Attending: Suni Baker MD Referred By: CARLEY GOODMAN JR Location: [place] SERVICE(S) PROVIDED: URETRO - Retroperitoneal Complete - [id number] INDICATIONS: ? stones COMPARISON: Ultrasound: Renal / [...] Signed Final Report 04/03/2019 11:06 am Carley Goodman Jr., [facility] documented in this encounter Visit Diagnoses Diagnosis Nephrolithiasis Calculus of kidney Nephrolithiasis Calculus of kidney documented in this encounter Care Teams Precision Agronomist Relationship Specialty Start Date End Date Susan Fernández MD [address] [place] [address] PCP - General Family Medicine 10/27/16 01/19/23 documented as of this encounter
--- OUTSIDE RECORDS SUMMARY | 2024-01-23 15:48 | XMS_ITS | Encounter Summary ---
Author Organization [facility] [place] [address] Care Team Providers Care Spool Maker Name Role Phone Belen Bhagat APRN Primary Care Provider [phone] Encounter Details Date Type Department Care Team (Latest Contact Info) Description 03/18/2023 Travel Social History Tobacco Use Types Packs/Day [...] 8:15 AM EDT Office Visit Dermatology at [place] [address] [place] [phone] Cortez Bey MD [address], [place] [address] documented as of this encounter Visit Diagnoses Not on filedocumented in this encounter Care Teams Spool Maker Relationship Specialty Start Date End Date Belen Bhagat APRN [address] [place] [address] PCP - General Family Medicine 01/20/23 documented as of this encounter
--- OUTSIDE RECORDS SUMMARY | 2024-01-23 15:48 | XMS_ITS | Encounter Summary ---
Author Organization [facility] [place] [address] Care Team Providers Care Football Scout Name Role Phone Susan Fernández MD Primary Care Provider [phone] Reason for Visit * Reason Comments Chronic Open Angle Glaucoma 6 mo glaucom a ck Encounter Details Date Type Department Care Team (Late st Contact Info) Description 04/15/2017 10:30 AM EST Office [place] [address] Giles Fitzgerald MD [facility] [place] [address] Primary open angle glaucoma of left eye, [...] * Patient Instructions* Giles Fitzgerald MD - 04/15/2017 10:30 AM EST HPI Chronic Open Angle Glaucoma Additional comments: 6 mo glaucoma ck Comments Pt here for 6 mo glaucoma ck for Primary Open Angle Glaucoma (s/p CE/IOL OD done September 2016 with [place], [place]) Pt reports gradual decreased VA OD both D/N C/o some trouble with bright lights from on-coming traffic when driving both day and night; OS it seems stable Pt notes diagnosed with early AMD by Dr. Pierson in [facility] [place] Denies Eye Pain Current drops: * Cosopt left eye 2 times daily * Xalatan left eye nightly * Lotemax left eye 2 times daily Last edited by Giles Fitzgerald MD on 04/15/2017 11:27 AM. (History) Open-angle glaucoma Assessment: No progressive [...] - with Dr Payne's group back in [place] - we should have a new glaucoma provider here by the summer if needed in the future Follow-up with Dr Rubin to re-assess retina and make sure no tears in right eye since he had a retinal detachment in 2006 after that cataract surgery For additional information about eye conditions, visit the Eye Facts portion of my website at http://creditmontoring.[email or web address].Singularu/eye-education/ and I also started a Glaucoma Patient Group on [employer] (htt [email or web address].[email or web address]/[email or web address]) for patients to seek help from one another. (Search for Glaucoma Patient Group and then ask to join.) documented in this encounter Progress Notes * Giles Fitzgerald MD - 04/15/2017 10:30 AM EST Open-angle glaucoma Assessment: No progressive glaucoma [...] - with Dr Payne's group back in [place] - we should have a new glaucoma provider here by the summer if needed in the future Follow-up with Dr Rubin to re-assess retina and make sure no tears in right eye since he had a retinal detachment in 2006 after that cataract surgery documented in this encounter Miscellaneous Notes * Assessment & Plan Note - Giles Fitzgerald MD - 04/15/2017 11:28 AM EST Associated Problem(s): Open-angle glaucoma Assessment: No [...] - with Dr Payne's group back in [place] - we should have a new glaucoma [...] 8:15 AM EDT Office Visit Dermatology at [place] [address] [place] [address] Cortez Bey MD [address], [place] [address] documented as of this encounter Procedures Procedure Name Priority Date/Time Associated Diagnosis Comments AUTOMATED VISUAL FIELD - EXTENDED - OD - RIGHT EYE Routine 04/15/2017 11:39 AM EST Primary open angle glaucoma of left eye, mild stage documented in this encounter Results * AUTOMATED VISUAL FIELD - EXTENDED - OD - RIGHT EYE (04/15/2017 11:39 AM EST) Anatomical Region Laterality Modality Other Narrative 04/15/2017 11:39 AM EST Threshold was 24-2. Strategy was KIERSTEN. Reliability was poor. Notes Visual Field Results Glaucoma Hemifield Test (GHT) OD: within normal limits Visual Function Index (VFI) OD: 99 % MD OD: +0.07 dB ? PSD OD: 1.54 dB Interpretation: normal right eye Giles Fitzgerald MD OPHTHALMOLOGY SERV ICES ORDERABLES documented in this encounter Visit Diagnoses Diagnosis Primary open angle glaucoma of left eye, mild stage- Primary documented in this encounter Care Teams Football Scout Relationship Specialty Start Date End Date Susan Fernández MD [address] [place] [address] PCP - General Family Medicine 10/27/16 01/19/23 documented as of this encounter
--- OUTSIDE RECORDS SUMMARY | 2024-01-23 15:48 | XMS_ITS | Encounter Summary ---
Author Organization [facility] [place] [address] Care Team Providers Care Supervisor Of Officials Name Role Phone Froy Monroe MD Primary Care Provider + Reason for Referral * Diagnostic Test (Routine) - Closed Specialty Diagnoses / Procedures Referred By Contac t Referred To Contact Radiology Diagnoses Nephrolithiasis Procedures CT Abdomen & Pelvis Wo Contrast Shantanu Goodman Jr., MD [facility] [place] [address] [facility] [place] [address] Referral ID Status Reason Start Date Expiration Date V isits Requested Visits Authorized [id number] Closed Specialty Service Requested 03/10/2016 05/08/2016 1 1 Reason for Visit * Diagnostic Test (Routine) - Closed Specialty Diagnoses / Procedures Referred By Contac t Referred To Contact Radiology Diagnoses Nephrolithiasis Procedures CT Abdomen & Pelvis Wo Contrast Shantanu Goodman Jr., MD [facility] [place] [address] [facility] [place] [address] Referral ID Status Reason Start Date Expiration Date V isits Requested Visits Authorized [id number] Closed Specialty Service Requested 03/10/2016 05/08/2016 1 1 Encounter Details Date Type Department Care Team (Latest Contact Info) Description 03/16/2016 3:15 PM EST - 03/16/2016 11:59 PM EST Hospital Encounter CT Scan at [facility] [place] [address] Shantanu Goodman Jr., MD [facility] [address] Nephrolithiasis Discharge Disposition: Home Social History Tobacco [...] tablet Take 5 mg by mouth daily. dorzolamide-timolol (COSOPT) 22.3-6.8 mg/mL DropsIndications:Primary open-angle glaucoma, left eye, mild stage Place 1 drop into the left eye 2 times daily. 10 mL 11 01/20/2016 04/01/2016 loteprednol (LOTEMAX) 0.5 % Drops, Suspension Place 1 drop into the left eye 2 times daily. 5 mL 3 10/16/2015 04/01/2016 latanoprost (XALATAN) 0.005 % DropsIndications:Primary open angle glaucoma of left eye, mild stage Place 1 drop into the left eye nightly. 2.5 mL 12 08/27/2015 09/01/2016 tamsulosin (FLOMAX) 0.4 mg capsule Take 0.4 mg by mouth daily. 04/25/2002 01/20/2023 documented as of this encounter Plan of Treatment Upcoming Encounters Date Type Department Care Team (Late st Contact Info) Description 01/25/2025 8:15 AM EDT Office Visit Dermatology at [place] [address] [place] [address] Cortez Bey MD [address], [place] [address] documented as of this encounter Procedures Procedure Name Priority Date/Time Associated Diagnosis Comments CT ABDOMEN AND PELVIS WO CONTRAST Routine 03/16/2016 3:22 PM EST Nephrolithiasis documented in this encounter Results * CT Abdomen & Pelvis Wo Contrast (03/16/2016 3:22 PM EST) Anatomical Region Laterality Modality Abdomen, Pelvis Computed Tomogra phy Impressions 03/16/2016 3:49 PM EST Multiple nonobstructive LEFT renal calculi Narrative 03/16/2016 3:49 PM EST EXAMINATION: CT ABDOMEN AND PELVIS WO CONTRAST CLINICAL HISTORY: ? stone burden and location TECHNIQUE: Helical CT of the abdomen and pelvis was performed without the use of intravenous contrast. ??Multiplanar reformatted images were generated. COMPARISON: 12/24/2014 FINDINGS: Right kidney/ureter: No collecting system dilation or calculi.. ? Left kidney/ureter: There are 4 calculi in the LEFT kidney., The largest is 13 mm in the lower pole.. This largest stone has increased in size since prior study but the other large stones seen previously is smaller or fragmented. No collecting system dilatation... ? This examination is limited for the evaluation of solid organs and vasculature structures due to the lack of intravenous contrast. Unenhanced images of the liver, spleen, pancreas, and adrenal glands are within normal limits. Gallbladder: Unremarkable. Lymph Nodes: No lymphadenopathy. GI tract: No bowel dilatation, mural thickening or mesenteric inflammation. Osseous structures: No suspicious lesions. Osteopenia Procedure Note Adriana Howard MD - 03/16/2016 EXAMINATION: CT ABDOMEN AND PELVIS WO CONTRAST CLINICAL HISTORY: ? stone burden and location TECHNIQUE: Helical CT of the abdomen and pelvis was performed without theuse of intravenous contrast. Multiplanar reformatted images were generated. COMPARISON: 12/24/2014 FINDINGS: Right kidney/ureter: No collecting system dilation or calculi.. Left kidney/ureter: There are 4 calculi in the LEFT kidney., The largestis 13 mm in the lower pole.. This largest stone has increased in size sinceprior study but the other large stones seen previously is smaller or fragmented.No collecting system dilatation... This examination is limited for the evaluation of solid organs andvasculature structures due to the lack of intravenous contrast. Unenhanced images of the liver, spleen, pancreas, and adrenal glands arewithin normal limits. Gallbladder: Unremarkable. Lymph Nodes: No lymphadenopathy. GI tract: No bowel dilatation, mural thickening or mesentericinflammation. Osseous structures: No suspicious lesions. Osteopenia IMPRESSION Multiple nonobstructive LEFT renal calculi Shantanu Goodman Jr., MD IMG CT ORDERABLES documented in this encounter Visit Diagnoses Diagnosis Nephrolithiasis Calculus of kidney documented in this encounter Care Teams Supervisor Of Officials Relationship Specialty Start Date End Date Froy Monroe MD [address] [place] [address] PCP - General 02/17/10 10/26/16 documented as of this encounter
--- OUTSIDE RECORDS SUMMARY | 2024-01-23 15:48 | XMS_ITS | Encounter Summary ---
Author Organization [facility] [place] [address] Care Team Providers Care Wafer Polisher Name Role Phone Belen Bhagat MORGAN Primary Care Provider [phone] Reason for Visit * Reason Comments Skin Lesion Encounter Details Date Type Department Care Team (Late st Contact Info) Description 03/18/2023 1:30 PM EST Office Visit Dermatology at [address] [address] oCrtez Bey MD [address] [place] [address], [facility] [place] [address] Ecchymosis Social History Tobacco Use Types Packs/Day Years [...] Progress Notes * Cortez Bey MD - 03/18/2023 1:30 PM EST PROBLEM: 1. Early Four-year skin checkup. 2. 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 3. [place] of [place] exposure 4. History of 5 fluorouracil 5% cream apply to face twice daily for 1 week on 3 weeks off, 3 cycles, December 2022 Jerad follows up after last being seen in December of this year. Concerned about a new lesion on his right forearm. This developed over the last few days without any prior trauma to the site. Physical examination reveals a pleasant 67-year-old gentleman who has a 1 cm diameter round ecchymosis on the right mid dorsal forearm. Adjacent to it is a linear scratch which at the proximal end ofthe scratch also has a very small faint ecchymosis. Assessment plan: Ecchymosis, right dorsal forearm 1. Patient reassured about benign benign ecchymosis 2. Discussed the pathogenesis of these 3. Patient does not recall any prior trauma to the site but we discussed how they can develop with minimal trauma or spontaneously at times 4. Patient's current medications include finasteride, and topical Efudex. Reassured him that these are not triggers for this. He has been taking 2 ibuprofen a day for back pain, 400 mg total. 5. Return to clinic in another 2 years for repeat check. Actinic keratoses currently undergoing course of 5-FU 1. Patient has used 2 of the 3 cycles of 5-FU with good response 2. Continue and complete courses of 5% fluorouracil 5% cream, 1 more cycle then DC. CC: Belen Bhagat APRN documented in this encounter Plan of Treatment Upcoming Encounters Date Type Department Care Team (Late st Contact Info) Description 01/25/2025 8:15 AM EDT Office Visit Dermatology at [place] [address] [place] [address] Cortez Bey MD [address] [facility] [place] [address] documented as of this encounter Visit Diagnoses Diagnosis Ecchymosis Other specified circulatory system disorders documented in this encounter Care Teams Wafer Polisher Relationship Specialty Start Date End Date Belen Bhagat APRN [address] [place] [address] PCP - General Family Medicine 01/20/23 documented as of this encounter
--- OUTSIDE RECORDS SUMMARY | 2024-01-23 15:48 | XMS_ITS | Encounter Summary ---
Author Organization [facility] Address [facility] [place] [address] Care Team Providers Care Manager Case Name Role Phone Belen Bhagat MORGAN Primary Care Provider [phone] Reason for Visit * Reason Comments Nephrolithiasis Encounter Details Date Type Department Care Team (Late st Contact Info) Description 08/24/2023 10:00 AM EDT [place] [address] Shantanu Goodman Jr., MD [facility] [place] [address] Nephrolithiasis Social History Tobacco Use Types Packs/Day [...] Pulse 69 08/24/2023 9:55 AM EDT Temperature - - Respiratory Rate - - Oxygen Saturation - - Inhaled Oxygen Concentration - - Weight - - Height - - Body Mass Index - - documented in this encounter Progress Notes * Shantanu Goodman Jr., MD - 08/24/2023 10:00 AM EDT Images from the original note were not included. HPI: Jerad Jauregui is a very pleasant 67 y.o. gentleman who returns for 2 year [...] been controlled with medical management with flomax (now 0.8mg daily) and finasteride. In the interval since his last visit, he has remained comfortable, denying any stone passage, renalcolic, or other new complaints. He is comfortable today. 07/22/2021 10:55 AM REVIEW OF SYSTEMS Constitutional None of the above Ear / [...] L URS/LL SocHx: no tobacco; occ'l EtOH; CPA. His is undergoing chemotherapy currently. Physical Exam Constitutional: General: He is not in acute distress. Appearance: He is not ill-appearing, toxic-appearing or diaphoretic. Cardiovascular: Rate and Rhythm: Normal rate. Pulmonary: Effort: Pulmonary effort is normal. Genitourinary: Comments: No CVA tenderness to percussion bilaterally Stone Analysis: 70% Calcium oxalate monohydrate 20% Calcium phosphate (apatite) 10% Calcium oxalatedihydrate Imaging Studies: I independently reviewed the renal us from today. This shows no evidence of hydronephrosis or hydroureter. Nonobstructing approx 2cm left renal stone again noted. Suspected new 3mm nonobstructing right renal stone noted IMPRESSION 1. Left kidney: Nonobstructing renal calculi, similar to the CT of 07/22/2021. No concerning focal lesion. No hydronephrosis. 2. Right kidney: Interval development of a single 3 mm stone, nonobstructing interpolar. No concerning focal lesion. No hydronephrosis. 3. No distal ureter stone. Normal partially decompressed bladder. Prominent prostate. Impression/Plan: 1) LEFT urolithiasis. There is no evidence of hydronephrosis, hydroureter, or obstruction although the stone of interest in the left kidney remains. We again reviewed management options including repeat ureteroscopy with endoscopic inspection, percutaneous access dilation and removal of stones within the the suspected calyceal diverticulum and possible diverticular ablation, or continued surveillance/watchful waiting. Given continued asymptomatic nature and absence of evident obstruction, he declined surgical intervention preemptively and wishes to continue with surveillance.. We will plan renal ultrasound for next visit and consider a CAT scan within the next several years. In the interval of new questions, symptoms, or problems arise hewill contact us for sooner follow-up. We discussed that even though the stone is suspected within a walled off diverticulum, that if migration were to occur this could cause symptoms. Additionally infection within an enclosed location may lead to abscess. He will contact us of any concerns or issues should arise. If stone removal is required in the future, I suspect it will have to be approached percutaneously but could be initially inspected ureteroscopically. 2)Possible new right renal stone. We reviewed imaging and discussed intrinsic limitations of ultrasound. We discussed possibility of new renal stone. We reviewed management options and as above, he wishes to monitor. However in the setting of possible new stone formation we will increase frequency of reimaging back to annually. If new symptoms or problems arise he will contact us and we will follow-up at that time, otherwise plan 1 year follow-up with repeat renal ultrasound and KUB. We had previously discussed the role of 24-hour urine to assess for underlying metabolic drivers ofstone formation. He had declined this. -RTC 1 y with renal u/s, consider 2026 ( 5 year) repeat stone protocol CAT scan, or sooner if new symptoms as above. 3)LUTS. We reviewed his urinary tract symptoms. He feels overall they are currently well-controlledwithout significant impact on quality of life with Flomax 0.8 mg nightly as well as finasteride. Wediscussed further consultation regarding minimally invasive surgical treatments for enlarged prostate given history of enlarged prostate as well as symptoms requiring medication. At this point he declines further consultation or interventions for his enlarged prostate but will contact us if he chooses to further pursue. documented in this encounter Plan of Treatment Upcoming Encounters Date Type Department Care Team (Late st Contact Info) Description 01/25/2025 8:15 AM EDT Office Visit Dermatology at [place] [address] [place] [address] Cortez Bey MD [address] [facility], [place] [address] Scheduled Orders Name Type Priority Associated Diagnoses Orde r Schedule US Retroperitoneal Complete Imaging Routine Nephrolithiasis Expected: 08/23/2024, Expires: 08/23/2024 XR Abdomen 1 view (Generic) Imaging Routine Nephrolithiasis Expected: 08/23/2024, Expires: 08/23/2024 documented as of this encounter Visit Diagnoses Diagnosis Nephrolithiasis Calculus of kidney documented in this encounter Care Teams Manager Case Relationship Specialty Start Date End Date Belen Bhagat APRN [address] [place] [address] PCP - General Family Medicine 01/20/23 documented as of this encounter
--- OUTSIDE RECORDS SUMMARY | 2024-01-23 15:48 | XMS_ITS | Encounter Summary ---
Author Organization [facility] Address [facility] [place] [address] Care Team Providers Care Welding Teacher Name Role Phone OlayinkaBelen MORGAN Primary Care Provider [phone] Encounter Details Date Type Department Care Team (Latest Contact Info) Description 08/24/2023 8:19 AM EDT - 08/24/2023 11:59 PM EDT Hospital [place] [address] Carley Crockett Jr., MD [facility] [place] [address] Nephrolithiasis Discharge Disposition: Home Social History Tobacco [...] Sig Dispensed Refills Start Date End Date tamsulosin (Flomax) 0.4 mg capsule Take 1 capsule by mouth 2 times daily. 180 tablet 3 04/08/2023 VIT C/E/ZN/COPPR/LUTEIN/RAYMOND FRANCIS (PRESERVISION AREDS 2 ORAL) Take by mouth 2 times daily. finasteride (PROSCAR) 5 mg tablet Take 5 mg by mouth daily. fluorouraciL (EFUDEX) 5 % Cream Apply to face twice daily for 1 week on, then 3 weeks off. Repeat for total of 3 cycles 40 g 01/20/2023 12/06/2023 documented as of this encounter Plan of Treatment Upcoming Encounters Date Type Department Care Team (Late st Contact Info) Description 01/25/2025 8:15 AM EDT Office Visit Dermatology at [place] [address] [place] [address] Cortez Bey MD [address], [place] [address] documented as of this encounter Procedures Procedure Name Priority Date/Time Associated Diagnosis Comments US RETROPERITONEAL COMPLETE Routine 08/24/2023 8:35 AM EDT Nephrolithiasis documented in this encounter Results * US Retroperitoneal Complete (08/24/2023 8:35 AM EDT) WORKSTATION ID [id number] RAD Anatomical Region Laterality Modality Abdomen Ultrasound 08/24/2023 8:33 AM EDT Impressions 08/24/2023 8:45 AM EDT 1. Left kidney: Nonobstructing renal calculi, similar to the CT of 07/22/2021. No concerning focal lesion. No hydronephrosis. 2. Right kidney: Interval development of a single 3 mm stone, nonobstructing interpolar. No concerning focal lesion. No hydronephrosis. 3. No distal ureter stone. Normal partially decompressed bladder. Prominent prostate. Electronically signed by: Henrry Lucero MD, [facility] ([phone]), at 08/24/2023 8:37 AM Thank you for letting us participate in the care of this patient. If you are a health care provider and have any questions regarding this report, please contact the number above. For patients who have questions, please contact the health acute care nurse that requested your imaging first. ? Henrry Lucero Physician Electronically Signed Final Report ?? 08/24/2023 08:45 am Narrative 08/24/2023 8:45 AM EDT Renal ? (Signed Final 08/24/2023 08:45 am) PATIENT INFO: ID #: ? [id number] ?: ??[birth year] (67 yrs)(M) Name: ? JERAD Alvin JAUREGUI ? Visit Date: 08/24/2023 08:33 am PERFORMED BY: Attending: ?Henrry Lucero MD Performed By: ? ARUNA Barr Erin Referred By: ?CARLEY CROCKETT JR Location: ? [facility] SERVICE(S) PROVIDED: URETRO - Retroperitoneal Complete - [id number] ? [id number] INDICATIONS: assess stones COMPARISON: Ultrasound: Renal / Bladder 04/03/19 ?? [address]: Abdomen/Pelvis 07/22/21 RIGHT KIDNEY: Size (cm) ?L: ??10.2 Cortical Thickness: ?Normal Cortical Echogenicity: ?? Normal Hydronephrosis: ?No sonographic evidence Comment: ?Non-obstructing renal calculi seen, measuring 3 ? mm. LEFT KIDNEY: Size (cm) ?L: ??10.4 Cortical Thickness: ?Normal Cortical Echogenicity: ?? Normal Hydronephrosis: ?No sonographic evidence Comment: ?Non-obstructing renal calculi seen, largest ? measuring 20 mm. URINARY BLADDER: Pre-void (cm) ? L: ??6.1 ? AP: ??2.7 ? TV: ??6.8 Vol (ml): ?58.6 Comment: ?Partially distended, normal contour. Procedure Note Henrry Lucero MD - 08/24/2023 Renal (Signed Final 08/24/2023 08:45 am) PATIENT INFO: ID #: [id number] : [birth year] (67 yrs)(M) Name: JERAD JAUREGUI Visit Date: 08/24/2023 08:33 am PERFORMED BY: Attending: Henrry Lucero MD Performed By: ARUNA Barr Erin Referred By: CARLEY CROCKETT JR Location: [facility] SERVICE(S) PROVIDED: URETRO - Retroperitoneal Complete - [id number] INDICATIONS: assess stones COMPARISON: Ultrasound: Renal / Bladder 04/03/19 CT: Abdomen/Pelvis 07/22/21 RIGHT KIDNEY: Size (cm) L: 10.2 Cortical Thickness: Normal Cortical Echogenicity: Normal Hydronephrosis: No sonographic evidence Comment: Non-obstructing renal calculi seen, measuring 3 mm. LEFT KIDNEY: Size (cm) L: 10.4 Cortical Thickness: Normal Cortical Echogenicity: Normal Hydronephrosis: No sonographic evidence Comment: Non-obstructing renal calculi seen, largest measuring 20 mm. URINARY BLADDER: Pre-void (cm) L: 6.1 AP: 2.7 TV: 6.8 Vol (ml): 58.6 Comment: Partially distended, normal contour. IMPRESSION 1. Left kidney: Nonobstructing renal calculi, similar to the CT of 07/22/2021. No concerning focal lesion. No hydronephrosis. 2. Right kidney: Interval development of a single 3 mm stone, nonobstructing interpolar. No concerning focal lesion. No hydronephrosis. 3. No distal ureter stone. Normal partially decompressed bladder. Prominent prostate. Electronically signed by: Henrry Lucero MD, [facility] ([phone]), at 08/24/2023 8:37 AM Thank you for letting us participate in the care of this patient. If you are a health care provider and have any questions regarding this report, please contact the number above. For patients who have questions, please contact the health acute care nurse that requested your imaging first. Henrry Lucero Physician Electronically Signed Final Report 08/24/2023 08:45 am Carley Crockett Jr., MD IMG GEN ORDERAB LES documented in this encounter Visit Diagnoses Diagnosis Nephrolithiasis Calculus of kidney documented in this encounter Care Teams Welding Teacher Relationship Specialty Start Date End Date Belen Bhagat APRN [address] [place] [address] PCP - General Family Medicine 01/20/23 documented as of this encounter
--- OUTSIDE RECORDS SUMMARY | 2024-01-23 15:48 | XMS_ITS | Encounter Summary ---
Author Organization [facility] [place] [address] Care Team Providers Care Animal Care Specialist Name Role Phone Belne Bhagat MORGAN Primary Care Provider [phone] Reason for Visit * Reason Comments Skin Lesion Encounter Details Date Type Department Care Team (Late st Contact Info) Description 12/06/2023 9:15 AM EDT Office Visit Dermatology at [address] [id number] Cortez Bey MD [address] [facility] [place] [address] Venous gray Social History Tobacco Use Types Packs/Day Years [...] Progress Notes * Cortez Bey MD - 12/06/2023 9:15 AM EDT PROBLEM: 1. New skin lesions of concern, right lower lip 2. 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 3. [facility] [place] [facility] [place] with lots of sun exposure 4. History of 5 fluorouracil 5% cream apply to face twice daily for 1 week on 3 weeks off, 3 cycles, December 2022 Jerad follows up after last being seen by me in February of last year.. He is concerned about a lesion on his right lower lip. He was not particularly cognizant of this but while being seen at the [facility] it was pointed out to him and a dermatology consultation is advised. Physical examination reveals a pleasant 68-year-old gentleman who has a venous gray on the right lower lip just above the vermilion border. It measures about 3 mm in diameter. The lip appears to be otherwise entirely normal without actinic cheilitis. There is no induration no erosions ulcerations. His facial examination is benign following his course of 5-FU which he completed the end of last year. There is no evidence of any actinic keratoses today Assessment plan: Right lower lip venous gray 1. Patient reassured about benign nature of this vascular lesion 2. Is asymptomatic, no treatment necessary 3. Return to clinic as already scheduled for a 2-year follow-up for complete skin checkup. CC: Belen Bhagat APRN documented in this encounter Plan of Treatment Upcoming Encounters Date Type Department Care Team (Late st Contact Info) Description 01/25/2025 8:15 AM EDT Office Visit Dermatology at [address] [address] Cortez Bye MD [address] [facility] [place] [address] documented as of this encounter Visit Diagnoses Diagnosis Venous gray Hemangioma of skin and subcutaneous tissue documented in this encounter Care Teams Animal Care Specialist Relationship Specialty Start Date End Date Belen Bhagat APRN [address] [place] [address] PCP - General Family Medicine 01/20/23 documented as of this encounter
--- OUTSIDE RECORDS SUMMARY | 2024-01-23 15:48 | XMS_ITS | Encounter Summary ---
[place] [address] Care Team Providers Care Rib Matcher And Fitter Name Role Phone OlayinkaBelen MORGAN Primary Care Provider [phone] Reason for Visit * Reason Comments Skin Check Encounter Details Date Type Department Care Team (Late st Contact Info) Description 01/20/2023 8:30 AM EDT Office Visit Dermatology at [address] [phone] Cortez Bey MD [address] [address], [facility] [place] [address] History of basal cell carcinoma; AK (actinic keratosis) Social History Tobacco Use Types Packs/Day Years [...] Progress Notes * Cortez Bey MD - 01/20/2023 8:30 AM EDT PROBLEM: 1. Four-year skin checkup. 2. 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 3. [place] exposure Jerad follows up for a repeat skin checkup. I last saw him in January 2019. He has noticed some lesions on his temples and his left preauricular cheek. Physical examination reveals a pleasant 67-year-old gentleman who has actinic keratoses on the temples and on the left preauricular cheek. He has a well- healed BCC excision scar on the left distal arm. There is no evidence of any cutaneous malignancy otherwise he has a benign examination of the head and the neck the chest the back the hands arms forearms thighs and calves. Assessment and plan: Benign skin examination 1. Reassured about his benign skin examination 2. We will continue every 2 year follow-up regimen Actinic keratosis facial sites 1. Begin 5 fluorouracil 5% cream apply to face on a twice daily basis for 1 week on then 3 weeks off . Repeat for total of 3 cycles. Dispense 40 g with 0 refills CC: Belen Bhagat APRN documented in this encounter Plan of Treatment Upcoming Encounters Date Type Department Care Team (Late st Contact Info) Description 01/25/2025 8:15 AM EDT Office Visit Dermatology at [place] [address] [place] [address] Cortez Bey MD [address] [facility] [place] [address] documented as of this encounter Visit Diagnoses Diagnosis History of basal cell carcinoma Personal history of other malignant neoplasm of skin AK (actinic keratosis) Actinic keratosis documented in this encounter Care Teams Rib Matcher And Fitter Relationship Specialty Start Date End Date Belen Bhagat APRN [address] [place] [address] PCP - General Family Medicine 01/20/23 documented as of this encounter
--- OUTSIDE RECORDS SUMMARY | 2024-01-23 15:48 | XMS_ITS | Encounter Summary ---
[place] [address] Care Team Providers Care Boom Cat Operator Name Role Phone Susan Fernández MD Primary Care Provider [phone] Encounter Details Date Type Department Care Team (Late st Contact Info) Description 02/03/2017 Telephone [place] [phone] Ana Potter RN Social History Tobacco Use Types Packs/Day Years [...] Telephone Encounter - Ana Dempsey RN - 02/03/2017 8:32 AM EST Left message for patient to call back regarding upcoming procedure. This is in regards to pre op testing (urine culture, BMP, CBC), and stopping aspirin, aspirin containing compounds, or other antiplatelet or anticoagulant agents for the 10 days preoperatively. Pre-op test orders faxed to [facility]. documented in this encounter Plan of Treatment Upcoming Encounters Date Type Department Care Team (Late st Contact Info) Description 01/25/2025 8:15 AM EDT Office Visit Dermatology at [place] [address] [place] [address] Cortez Bey MD [address], [place] [address] documented as of this encounter Visit Diagnoses Not on filedocumented in this encounter Care Teams Boom Cat Operator Relationship Specialty Start Date End Date Susan Fernández MD [address] [place] [address] PCP - General Family Medicine 10/27/16 01/19/23 documented as of this encounter
--- OUTSIDE RECORDS SUMMARY | 2024-01-23 15:48 | XMS_ITS | Encounter Summary ---
[place] [address] Care Team Providers Care Junior Linux Systems Administrator Name Role Phone Susan Fernández MD Primary Care Provider [phone] Reason for Visit * Reason Comments Skin Check Encounter Details Date Type Department Care Team (Late st Contact Info) Description 02/12/2019 4:45 PM EST Office Visit Dermatology at [address] [address] Cortez Bey MD [address] [facility], [facility] [place] [address] History of basal cell carcinoma; Seborrheic keratosis; Stucco keratosis; Acrochordon Social History Tobacco Use Types Packs/Day Years [...] Progress Notes * Cortez Bey MD - 02/12/2019 4:45 PM EST PROBLEM: 1. Two-year skin checkup. 2. 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 Jerad follows up for a repeat skin checkup. It has been 2 years since his last visit. He has been doing well and has not noted any new lesions of concern. Physical examination reveals a benign examination of the head and the neck the chest the back the hands the arms forearms thighs and the calves. He has a number stucco keratoses on the lower extremities and seborrheic keratoses on his back. He has no evidence of recurrence at the BCCA tumor treatment site on the left distal arm. He has several small tags present at the anterior base of his neck Assessment and plan: Benign skin examination 1. Patient reassured about his benign skin examination 2. Recommend that we continue our q. 2-year follow-up sequence Tags, irritated anterior base of neck 1. Could consider LN2 for these as well. CC: Susan Fernández MD documented in this encounter Plan of Treatment Upcoming Encounters Date Type Department Care Team (Late st Contact Info) Description 01/25/2025 8:15 AM EDT Office Visit Dermatology at [address] [phone] Cortez Bey MD [address] [facility] [place] [address] documented as of this encounter Visit Diagnoses Diagnosis History of basal cell carcinoma Personal history of other malignant neoplasm of skin Seborrheic keratosis Other seborrheic keratosis Stucco keratosis Acquired keratoderma Acrochordon Unspecified hypertrophic and atrophic condition of skin documented in this encounter Care Teams Junior Linux Systems Administrator Relationship Specialty Start Date End Date Susan Fernández MD [address] [place] [address] PCP - General Family Medicine 10/27/16 01/19/23 documented as of this encounter
--- OUTSIDE RECORDS SUMMARY | 2024-01-23 15:48 | XMS_ITS | Encounter Summary ---
Author Organization [facility] Address [facility] [place] [address] Care Team Providers Care Dice Table Operator Name Role Phone Froy Monroe MD Primary Care Provider + Reason for Visit * Reason Comments Medication Refill Encounter Details Date Type Department Care Team (Late st Contact Info) Description 09/01/2016 Ref[place] [address] Giles Fitzgerald MD [facility] [place] [address] Primary open angle glaucoma of left eye, mild stage Social History Tobacco [...] 8:15 AM EDT Office Visit Dermatology at [place] [address] [facility] [place] [phone] Cortez Bey MD [address], [place] [address] documented as of this encounter Visit Diagnoses Diagnosis Primary open angle glaucoma of left eye, mild stage documented in this encounter Care Teams Dice Table Operator Relationship Specialty Start Date End Date Froy Monroe MD [address] [facility] [place] [address] PCP - General 02/17/10 10/26/16 documented as of this encounter
--- OUTSIDE RECORDS SUMMARY | 2024-01-23 15:48 | XMS_ITS | Encounter Summary ---
Author Organization [facility] Address [facility] [place] [address] Care Team Providers Care Wireworker Name Role Phone Susan Fernández MD Primary Care Provider [phone] Reason for Visit * Reason Onset Date Comments Other 10/17/2017 Requesting OCT a nd IOP history Encounter Details Date Type Department Care Team (Late st Contact Info) Description 10/17/2017 Telephone [place] [address] Giles Fitzgerald MD [facility] [address] [place] [address] Other (Requesting OCT and IOP history) Social History Tobacco Use Types Packs/Day Years [...] Telephone Encounter - Kathya Edwards COT - 10/17/2017 4:19 PM EDT Faxed OCT, HVF's and Snap Shot with history of IOP's. Will mail colored OCT. documented in this encounter Plan of Treatment Upcoming Encounters Date Type Department Care Team (Late st Contact Info) Description 01/25/2025 8:15 AM EDT Office Visit Dermatology at [place] [address] [facility] [place] [address] Cortez Bey MD [address], [place] [address] documented as of this encounter Visit Diagnoses Not on filedocumented in this encounter Care Teams Wireworker Relationship Specialty Start Date End Date Susan Fernández MD [address] [place] [address] PCP - General Family Medicine 10/27/16 01/19/23 documented as of this encounter
--- OUTSIDE RECORDS SUMMARY | 2024-01-23 15:48 | XMS_ITS | Encounter Summary ---
Author Organization [facility] Address [facility] [place] [address] Care Team Providers Care Real Estate Investor Name Role Phone Susan Fernández MD Primary Care Provider [phone] Encounter Details Date Type Department Care Team (Latest Contact Info) Description 04/19/2017 11:15 AM EST - 04/19/2017 11:59 PM [facility] Hospital [place] [address] Carley Crockett Jr., MD [facility] [place] [address] Discharge Disposition: Home Social History Tobacco Use [...] tablet Take 5 mg by mouth daily. vitamin E 100 unit Capsule Take 100 [...] 8:15 AM EDT Office Visit Dermatology at [place] [address] [facility] [place] [address] Cortez Bey MD [address], [place] [address] documented as of this encounter Procedures Procedure Name Priority Date/Time Associated Diagnosis Comments US RETROPERITONEAL COMPLETE Routine 04/19/2017 11:41 AM EST documented in this encounter Results * US [...] 12:36 pm) PATIENT INFO: ID #: ? [id number] ?: ??[birth year] (61 yrs) Name: ? JERAD JAUREGUI ? Visit Date: 04/19/2017 11:36 am PERFORMED BY: Performed By: ? Justine Sheehan RDMS Attending: ?Olivia CARIAS, Suni Castro. Referred By: ?CARLEY CROCKETT Location: ? [facility] SERVICE(S) PROVIDED: ??URETRO - Retroperitoneal Complete - [id number] ? [id number] INDICATIONS: ??nephrolithiasis COMPARISON: Ultrasound: 10/27/16 -------- HISTORY: [...] 04/19/2017 12:36 pm) PATIENT INFO: ID #: [id number] : 51 (61 yrs) Name: JERAD JAUREGUI Visit Date: 04/19/2017 11:36 am PERFORMED BY: Performed By: Justine Sheehan RDMS Attending: Suni Baker MD Referred By: CARLEY CROCKETT JR Location: [facility] SERVICE(S) PROVIDED: URETRO - Retroperitoneal Complete - [id number] INDICATIONS: nephrolithiasis COMPARISON: Ultrasound: 10/27/16 -------- HISTORY: [...] 04/19/2017 12:36 pm Carley Crockett Jr., MD IMG GEN ORDERAB LES documented in this encounter Visit Diagnoses Not on filedocumented in this encounter Care Teams Real Estate Investor Relationship Specialty Start Date End Date Susan Fernández MD [address] [place] [address] PCP - General Family Medicine 10/27/16 01/19/23 documented as of this encounter
--- OUTSIDE RECORDS SUMMARY | 2024-01-23 15:48 | XMS_ITS | Encounter Summary ---
Author Organization [facility] [place] [address] Care Team Providers Care Assistant Buyer Name Role Phone Susan Fernández MD Primary Care Provider [phone] Reason for Visit * Reason Comments Nephrolithiasis Encounter Details Date Type Department Care Team (Late st Contact Info) Description 04/03/2019 11:30 AM EST [place] [address] Shantanu Goodman Jr., MD [facility] [place] [address] Nephrolithiasis Social History Tobacco Use Types Packs/Day [...] Sign Reading Time Taken Comments Blood Pressure 120/71 04/03/2019 11:29 AM EST Pulse 66 04/03/2019 11:29 AM EST Temperature - - Respiratory Rate - - Oxygen Saturation - - Inhaled Oxygen Concentration - - Weight - - Height - - Body Mass Index - - documented in this encounter Progress Notes * Shantanu Goodman Jr., MD - 04/03/2019 11:30 AM EST HPI: Jerad Jauregui is a 63 y.o. gentleman who returns for 2 year urologic follow up regarding 1.8cm left renal nephrolithiasis. He most recently underwent left renal [...] eye drops could potentially increase stone risk a(carbonic anyhdrase inhibitor --dorzolamide). He underwent left URS [...] other new complaints. He is comfortable today. Review of Systems Constitution: Negative for fever. Gastrointestinal: Negative for abdominal pain. Genitourinary: Negative [...] Normal rate and regular rhythm. Pulmonary/Chest: Effort normal. No respiratory distress. Abdominal: Soft. He exhibits no distension. There [...] The previously noted LEFT interpolar stone remains; with possible adjacent 6-9 mm left renal stone, both non obstructing. No hydronephrosis or hydroureter. I also reviewed the CT from 2016 demonstrating a small stone that have beenremoved as well as the larger interpolar stone and the possible adjacent stone. At that time, the smaller stone was approximately 3 to 4 mm. Impression/Plan: 1) LEFT urolithiasis. There is no evidence of hydronephrosis, hydroureter, or obstruction although the stone of interest in the left kidney remains. Possible new stone suggested on ultrasound although review of prior CAT scan suggests that it may be interval growth versus ultrasound over estimation of his adjacent stoneseen on the initial CT. We reviewed management options including repeat ureteroscopy, endoscopic inspection cutaneous removal and watchful waiting. As these have remained asymptomatic he wishes to continue with surveillance. We discussed the role of CAT scan to better assess if there has truly been stone growth. He wishesto proceed with CAT scan we will plan on CT in 18 to 24 months. He will contact us sooner if new symptoms or problems arise. We previously discussed the role of 24-hour urine to assess for underlying metabolic drivers of stone formation. He is declined this. We discussed that even though the stone is suspected within a walled off diverticulum, that if migration were to occur this could cause symptoms. Additionally infection and a close space may lead to abscess. He will contact us of any concerns or issues should arise. If stone removal is required in the future, suspect it will have to be approached percutaneously. RTC 2 y with stone protocol CAT scan, or sooner if new symptoms as above. documented in this encounter Plan of Treatment Upcoming Encounters Date Type Department Care Team (Late st Contact Info) Description 01/25/2025 8:15 AM EDT Office Visit Dermatology at [place] [address] [place] [address] Cortez Bey MD [address], [place] [address] documented as of this encounter Visit Diagnoses Diagnosis Nephrolithiasis Calculus of kidney documented in this encounter Care Teams Assistant Buyer Relationship Specialty Start Date End Date Susan Fernández MD [address] [place] [address] PCP - General Family Medicine 10/27/16 01/19/23 documented as of this encounter
--- OUTSIDE RECORDS SUMMARY | 2024-01-23 15:48 | XMS_ITS | Encounter Summary ---
[place] [address] Care Team Providers Care Business Analyst Intern Name Role Phone OlayinkaBelen MORGAN Primary Care Provider [phone] Encounter Details Date Type Department Care Team (Late st Contact Info) Description 03/03/2023 [place] [phone] Vanessa Aceves, RN Social History Tobacco Use Types Packs/Day Years Used Date Smoking Tobacco: Never Smokeless Tobacco: Never Alcohol Use Standard Drinks/Week Comments Yes 0 (1 standard drink = 0.6 oz pur e alcohol) Sex and Gender Information Value Date Recorded Sex Assigned at Not on file Gender Identity Not on file Sexual Orientation Not on file documented as of this encounter Progress Notes * Vanessa Aceves RN - 03/03/2023 10:06 AM EST Reason for Call: Imaging order request PMH: Last follow up with Dr. Crockett on 07/22/21: Imp: Left urolithiasis Plan:RTC 2.5 y with renal u/s, consider 5 year repeat stone protocol CAT scan, or sooner if new symptoms as above. Disposition: Call returned to patient, patient would like to coordinate the RBUS with his next appointment. Will forward to the Urology secretaries to arrange. Next scheduled follow up: 08/24/[address] Crockett. documented in this encounter Miscellaneous Notes * Telephone Encounter - Vanessa Aceves RN - 03/03/2023 10:02 AM EST Copied from [facility] #[id number]. Topic: Specialty Dept CRMs - Orders >> Mar 02, 2023 10:43 AM Hilario Leach wrote: Orders Request Specialist: Dr. Crockett Relationship (if other than patient-full name): self Type of Request: [x] Input orders Type/Name of Order: Imaging If Labs and Imaging list name of specific test(s): US Retroperitoneal Complete Date of Lab/Imaging/Testing Appt: 08/24/23 Date of Provider Appt: 08/23/22 Appt Type with Provider: HARVINDER Patient Requesting to Have Orders Sent to Facility Outside of [facility]: No documented in this encounter Plan of Treatment Upcoming Encounters Date Type Department Care Team (Late st Contact Info) Description 01/25/2025 8:15 AM EDT Office Visit Dermatology at [place] [address] [facility] [place] [address] Cortez Bey MD [address] [facility], [place] [place] [address] documented as of this encounter Results * US Retroperitoneal Complete (08/24/2023 8:35 AM EDT) WORKSTATION ID [id number] RAD Anatomical Region Laterality Modality Abdomen Ultrasound [...] stone. Normal partially decompressed bladder. Prominent prostate. Thank you for letting us participate in the care of this patient. If you are a health care provider and have any questions regarding this report, please contact the number above. For patients who have questions, please contact the health pharmacist critical care that requested your imaging first. ? Henrry Lucero, Physician Electronically Signed Final Report ?? 08/24/2023 08:45 am Narrative 08/24/2023 8:45 AM EDT Renal ? (Signed Final 08/24/2023 08:45 am) PATIENT INFO: ID #: ? [id number] ?: ??[birth year] (67 yrs)(M) Name: ? JERAD Ted JAUREGUI ? Visit Date: 08/24/2023 08:33 am PERFORMED BY: Attending: ?Henrry Lucero MD Performed By: ? ARUNA Barr Erin Referred By: ?CARLEY CROCKETT Location: ? [facility] SERVICE(S) PROVIDED: URETRO - Retroperitoneal Complete - [id number] ? [id number] INDICATIONS: assess stones COMPARISON: Ultrasound: Renal / [...] 08/24/2023 08:45 am) PATIENT INFO: ID #: [id number] : [birth year] (67 yrs)(M) Name: JERAD JAUREGUI Visit Date: 08/24/2023 08:33 am PERFORMED BY: Attending: Henrry Lucero MD Performed By: ARUNA Barr Erin Referred By: CARLEY CROCKETT JR Location: [facility] SERVICE(S) PROVIDED: URETRO - Retroperitoneal Complete - [id number] INDICATIONS: assess stones COMPARISON: Ultrasound: Renal / [...] prostate. Electronically signed by: Henrry Lucero MD, [facility] ([phone]), at 08/24/2023 8:37 AM Thank you for letting us participate in the care of this patient. If you are a health care provider and have any questions regarding this report, please contact the number above. For patients who have questions, please contact the health pharmacist critical care that requested your imaging first. Henrry Lucero, Physician Electronically Signed Final Report 08/24/2023 08:45 am Carley Crockett Jr., MD [facility] GEN ORDERAB LES documented in this encounter Visit Diagnoses Diagnosis Nephrolithiasis Calculus of kidney Nephrolithiasis Calculus of kidney documented in this encounter Care Teams Business Analyst Intern Relationship Specialty Start Date End Date Belen Bhagat APRN [address] [place] [address] PCP - General Family Medicine 01/20/23 documented as of this encounter
--- OUTSIDE RECORDS SUMMARY | 2024-01-23 15:49 | XMS_ITS | Encounter Summary ---
Author Organization [facility] [place] [address] Care Team Providers Care Milk Tanker Driver Name Role Phone Froy Monroe MD Primary Care Provider + Reason for Referral * (Routine) - Specialty Diagnoses / Procedures Referred By Jeannie barker Referred To Contact Radiology Diagnoses Nephrolithiasis Procedures CT Abdomen & Pelvis Wo Contrast Shantanu Goodman Jr., MD [facility] [place] [address] Referral ID Status Reason Start Date Expiration Date V isits Requested Visits Authorized [id number] 12/24/2014 12/24/2015 1 1 Reason for Visit * Reason Comments Nephrolithiasis Encounter Details Date Type Department Care Team (Late st Contact Info) Description 12/24/2014 2:40 PM EDT [place] [address] CLINIC, Shantanu Johnson Jr., MD [facility] [place] [address] Nephrolithiasis Discharge Disposition: Home Social History Tobacco Use Types Packs/Day Years Used Date Smoking Tobacco: Never Sex and Gender Information Value Date Recorded Sex Assigned at Not on file Gender Identity Not on file Sexual Orientation Not on file documented as of this encounter Last Filed Vital Signs Vital Sign Reading Time Taken Comments Blood Pressure 133/84 12/24/2014 2:38 PM EDT Pulse 89 12/24/2014 2:38 PM EDT Temperature 36.7 ??C (98 ??F) 12/24/2014 2:38 PM EDT Respiratory Rate 20 12/24/2014 2:38 PM EDT Oxygen Saturation 98% 12/24/2014 2:38 PM EDT Inhaled Oxygen Concentration - - Weight 83.9 kg (185 lb) 12/24/2014 2:38 PM EDT Height 185.4 cm (6' 1) 12/24/2014 2:38 PM EDT Body Mass Index 24.41 12/24/2014 2:38 PM EDT documented in this encounter Progress Notes * Shantanu Goodman Jr., MD - 12/24/2014 3:08 PM EDT HPI: Jerad Jauregui is a 59 y.o. man who presents for urologic follow up regarding bilateral nephrolithiasis and an enlarged prostate. He has long history of recognized enlarged prostate, managed with flomax x 15 years (Dr Valadez). He had an elevated PSA and had biopsy (10/2008) that was reportedly negative. He had a follow up biopsy for prostate asymmetry (01/06) that was also negative. Since then, he has opted not to continue withprostate cancer screening and has declined KIRK here. He subsequently saw Dr Linda in 2012 for bilateral nephrolithiasis. He underwent bilateral SWL in 07/2013. He had residual left renal stones. Since his last visit in July 2014, he has been well. He denies any flank or abdominal pain. His LUTSare tolerable with medical management with flomax and finasteride. Review of Systems Gastrointestinal: Negative for abdominal pain. Genitourinary: Positive for nocturia. Negative for flank pain and hematuria. 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 He appears well- developed and well-nourished. No distress. HENT: Head: Normocephalic and atraumatic. Cardiovascular: Normal rate. Pulmonary/Chest: Effort normal. Abdominal: Soft. He exhibits no distension. There is no tenderness. There is no rebound. Genitourinary: No CVA tenderness to percussion bilaterally Neurological: He is alert and oriented to person, place, and time. Skin: He is not diaphoretic. Psychiatric: He has a normal mood and affect. His behavior is normal. Imaging Studies: I independently reviewed the KUB from today, suggesting a 6-7 mm left renal pelvicstone (although report notes >2cm). Ultrasound noted 2.5cm left renal pelvic stone with possibledilated calyx. Impression/Plan: 1) left renal stones -- We discussed that if he in fact has a 2.5cm left renal pelvic stone, would consider PCNL to treat given size and suggestion of obstruction. He states he is completely asymptomatic. We discussed further imaging with CT to better assess stone burden. He wishes to proceed with this. 2)LUTS. Stable, with minimal bother. We reviewed mgmt options including surgical prostate resectionand continued medical management. He wishes to continue with current course of tamsulosin and proscar. 3)Prostate cancer screening. We again reviewed current controversies surrounding prostate cancer screening. He had decided previously with Dr Valadez and Dr Linda to hold off on further screening. He again declined KIRK. ADDENDUM: He had CT which I have reviewed and discussed with him. This shows that there is NO obstruction, identifies 2 separate stone, one 8mm, one 10-11 mm in mid kidney. I spoke with him further by phone, reviewed CT findings as well as management options. We discussed that the stones had been and have remained asymptomatic and may remain so indefinitely. He is nonetheless concerned that it may become symptomatic and would like to have them treated proactively. We discussed management options of continued watchful waiting, SWL (which may need to be staged dueto stone volume), and ureteroscopy(similarly may require staged approach), as well as PCNL (most likely to remove all stone in single procedure, but also most invasive) and even open stone surgery, and the relative risks, benefits, and limitations of each. He states he has successfully undergone SWL in the past and wishes to try this again, understanding that this has a lower single procedure stone free rate than PCNL. We specifically discussed risks of bleeding, infection, injury to kidney/ureter/surrounding structures, loss of kidney, failure to fully fragment the stones, development of steinstrasse, development of strictures, need for additional or staged procedures, inability to access or remove stone, and risks of anesthesia and risks of heart attack, stroke, or . With an understanding of the above, he would like to proceed with an attempt at left renal SWL, and this will be sc heduled at his convenience. I have asked him to call with any additional questions. We discussed that SWL cannot be performed in someone actively anticoagulated or taking antiplatelet agents. He has been instructed to not take any aspirin, aspirin containing compounds, or other antiplatelet or antic oagulant agents for the 10 days preoperatively. documented in this encounter Plan of Treatment Upcoming Encounters Date Type Department Care Team (Late st Contact Info) Description 01/25/2025 8:15 AM EDT Office Visit Dermatology at [place] [address] [place] [address] Cortez Bey MD [address], VIN[place] [address] documented as of this encounter Procedures Procedure Name Priority Date/Time Associated Diagnosis Comments URINE CULTURE Routine 12/24/2014 4:09 PM EDT Nephrolithiasis documented in this encounter Results * CT Abdomen & Pelvis Wo Contrast (12/24/2014 5:03 PM EDT) Anatomical Region Laterality Modality Abdomen, Pelvis Computed Tomogra phy 12/24/2014 5:03 PM EDT Impressions 12/24/2014 5:13 PM EDT IMPRESSION: Left nephrolithiasis, as described. No renal collecting system obstruction bilaterally. Narrative 12/24/2014 5:13 PM EDT EXAMINATION: CT Abdomen / Pelvis Without Contrast CLINICAL HISTORY: ? large left renal stone TECHNIQUE: Helical CT of the abdomen and pelvis was performed without the use of intravenous contrast. ??Multiplanar reformatted images were generated. COMPARISON: None FINDINGS: Right kidney/ureter: No collecting system dilation or calculi.. ??No right renal collecting system calcifications Left kidney/ureter: Multiple nonobstructing cortical medullary calcifications. The largest 2 measure approximately 8 mm, and 11 mm in greatest diameter, respectively. No left renal collecting system obstruction.. ??No left ureteral calcifications. This examination is limited for the evaluation of solid organs and vasculature structures due to the lack of intravenous contrast. Unenhanced images of the spleen, pancreas, and adrenal glands are within normal limits. Scattered, benign-appearing small hypodensities are seen in the liver, likely small cysts. Gallbladder: Unremarkable. Lymph Nodes: No lymphadenopathy. GI tract: Multiple colonic diverticula. Osseous structures: No suspicious lesions. Procedure Note Darian Clemente MD - 12/24/2014 EXAMINATION: CT Abdomen / Pelvis Without Contrast CLINICAL HISTORY: ? large left renal stone TECHNIQUE: Helical CT of the abdomen and pelvis was performed without theuse of intravenous contrast. Multiplanar reformatted images were generated. COMPARISON: None FINDINGS: Right kidney/ureter: No collecting system dilation or calculi.. No rightrenal collecting system calcifications Left kidney/ureter: Multiple nonobstructing cortical medullarycalcifications. The largest 2 measure approximately 8 mm, and 11 mm in greatestdiameter, respectively. No left renal collecting system obstruction.. No leftureteral calcifications. This examination is limited for the evaluation of solid organs andvasculature structures due to the lack of intravenous contrast. Unenhanced images of the spleen, pancreas, and adrenal glands are withinnormal limits. Scattered, benign-appearing small hypodensities are seen in theliver, likely small cysts. Gallbladder: Unremarkable. Lymph Nodes: No lymphadenopathy. GI tract: Multiple colonic diverticula. Osseous structures: No suspicious lesions. IMPRESSION IMPRESSION: Left nephrolithiasis, as described. No renal collecting systemobstruction bilaterally. Shantanu Goodman Jr., MD [facility] [place] ORDERABLES * Urine culture Clean Catch Urine (12/24/2014 4:09 PM EDT) Urine Culture No growth (Less than 1,000 cfu/ml). [facility] Urine specimen obtained by clean catch procedure (specimen) 12/24/2014 4:09 PM EDT 12/24/2014 5:33 PM EDT Narrative Resulting Agency Comment Spec In Lab Shantanu Goodman Jr., MD MICROBIOLOGY - GEN ERAL ORDERABLES [facility] documented in this encounter Visit Diagnoses Diagnosis Nephrolithiasis Calculus of kidney Nephrolithiasis Calculus of kidney documented in this encounter Care Teams Milk Tanker Driver Relationship Specialty Start Date End Date Froy Monroe MD [address] [place] [address] PCP - General 02/17/10 10/26/16 documented as of this encounter
--- OUTSIDE RECORDS SUMMARY | 2024-01-23 15:49 | XMS_ITS | Encounter Summary ---
[place] [address] Care Team Providers Care Data Storage Specialist Name Role Phone Froy Monroe MD Primary Care Provider + Encounter Details Date Type Department Care Team (Late Contact Info) Description 09/01/2015 [place] [address] Piero Swanson MD [address] [place] [id number] Social History Tobacco Use Types Packs/Day Years [...] 8:15 AM EDT Office Visit Dermatology at [place] [address] [place] [id number] Cortez Bey MD [address] [facility] [place] [address] documented as of this encounter Visit Diagnoses Not on filedocumented in this encounter Care Teams Data Storage Specialist Relationship Specialty Start Date End Date Froy Monroe MD [address] [place] [address] PCP - General 02/17/10 10/26/16 documented as of this encounter
--- OUTSIDE RECORDS SUMMARY | 2024-01-23 15:49 | XMS_ITS | Encounter Summary ---
Author Organization [facility], [place] Address [address] [place] [address] Care Team Providers Care Strip Mine Supervisor Name Role Phone Froy Monroe MD Primary Care Provider U navailable Encounter Details Date Type Department Care Team (Latest Contact Info) Description 03/06/2013 9:57 EST - 03/06/2013 14:49 EST Hospital Encounter [facility] Perioperative Services- [facility] [address] [place] [address] Timoteo Hollins MD [address] [place] [phone] Retinal detachment, left (Primary Dx) Discharge Disposition: Home or Self Care Social History Tobacco Use Types Packs/Day Years Used Date Smoking Tobacco: Never Assessed Sex and Gender Information Value Date Recorded Sex Assigned at Not on file Gender Identity Not on file Sexual Orientation Not on file documented as of this encounter Last Filed Vital Signs Vital Sign Reading Time Taken Comments Blood Pressure 122/61 03/06/2013 1415 EST Pulse - - Temperature 36.8 ??C (98.2 ??F) 03/06/2013 1430 EST Respiratory Rate 12 03/06/2013 1415 EST Oxygen Saturation 99% 03/06/2013 1430 EST Inhaled Oxygen Concentration - - Weight 83.9 kg (185 lb) 03/03/2013 1204 EST Height 185.4 cm (6' 1) 03/03/2013 1204 EST Body Mass Index 24.41 03/03/2013 1204 EST documented in this encounter Discharge Instructions * Discharge Instructions* Timoteo Hollins - 03/06/2013 13:48 EST Leave your eye patch and shield - if any were placed by your surgeon - in place. For pain, you may use Tylenol (acetominophen) and/or Advil (ibuprofen) or other similar non-prescription, hxny-odh-ssabiih medications in doses as noted on manufacturers' labels. Do not exceed daily dosing limits for any of the active ingredients. Be careful to check other medications you may be taking by mouth for other conditions that may coincidentally contain one or more of these active ingredients. For example, if you have a chronic pain condition - say, arthritis - and are on pills regularly for that, check to see if those pills contain acetominophen as one of their active ingredients before using additional acetominophen for eye pain after today's surgery. For pain not controlledwith this approach and/or for concerns and/or questions about use of these medications, call [facility] at [phone]. For showering, avoid directing your face into the stream of the shower head. Do not worry about a small amount of water and/or soap that gets into your eye patch and/or eye during shampooing, face washing, etc. Do not lift anything heavier than a light bag of groceries and, until notified by your surgeon, do not exercise. Follow-up tomorrow at [facility], [address] [place] [address], [address] [place] [address], any time between 9 AM and 2 PM. (That location is up the block from [employer] at the corner of [facility] [address] and [facility], and across the street from [employer] and from [employer].) At that appointment, your surgeon and the [facility] staff will review post-operative instructions that will apply moving forward after tomorrow's visit; the instructions you are holding and reading right now apply to today, tonight, and tomorrow morning prior to your appointment. Tomorrow, you will learn about eye drop use after patch removal, further activity and/or exercise restrictions, any ongoing positioning needs, etc. It is very strongly recommended that you have another adultwith you at that appointment and in the examination room to help you keep track of all of this and to help you figure out what questions you might have. documented in this encounter Medications at Time of Discharge Medication Sig Dispensed Refills Start Date End Date finasteride (PROSCAR) 5 mg tablet Take 5 mg by mouth at bedtime. lutein 6 mg tablet Take 1 Tab by mouth daily. Multivitamins with Minerals tablet Take 1 Tab by mouth daily. tamsulosin (FLOMAX) 0.4 mg capsule Take 0.4 mg by mouth at bedtime. vitamin b-12 (CYANOCOBALAMIN) 50 mcg tablet Take 50 mcg by mouth daily. documented as of this encounter Discharge Disposition Disposition Code Departure Means Destination Home or Self Care documented in this encounter Progress Notes * Ria Encinas RN - 03/06/2013 1438 EST Admit to PACU with anesthesia present in no apparent distress. Vital signs stable , tolerates po, post op instructions reviewed. Pt ready for discharge , pain at tolerable level. Anesthesia notified of pt. meeting PASS criteria. * Shanda Conde, MARISOL - 03/03/2013 1203 EST Jerad Jauregui has been instructed as follows regarding medication administration for the day of the scheduled procedure. Date of Surgery: 03/06/13 Instructions for Taking Medications Day of Surgery Medication Last Dose Hold DOS Take DOS BRIMONIDINE TARTRATE (BRIMONIDINE OPHTHALMIC) Yes finasteride (PROSCAR) 5 mg tablet yes lutein 6 mg tablet yes Multivitamins with Minerals tablet yes tamsulosin (FLOMAX) 0.4 mg capsule yes Tobramycin-Lotepred (ZYLET) 0.3-0.5 % Drops, Suspension Yes vitamin b-12 (CYANOCOBALAMIN) 50 mcg tablet yes Other medication instructions: Other medication instruction given: hold NSAID's and supplements 7 days prior to surgery documented in this encounter H&P Notes * BROOMMAKING SUPERVISOR, SCAN 2 - 03/09/2013 0909 EST * Timoteo Hollins - 03/06/2013 1127 EST The preoperative history and physical which was performed within 30 days of this procedure has been reviewed and the clinically appropriate elements of the physical examination have been repeated. There are no changes to the documented history and physical or if so such changes are documented below TIMOTEO HOLLINS 03/06/2013 11:27 documented in this encounter Nursing Notes * BROOMMAKING SUPERVISOR, SCAN 2 - 03/09/2013 0909 EST documented in this encounter OR Notes * OR Surgeon - Timoteo Hollins - 03/12/2013 1015 EST OPERATIVE REPORT SERVICE DATE: 03/06/2013 SURGEON: Timoteo Hollins MD SUPERVISOR NURSE: Mandi Yeboah PREOPERATIVE DIAGNOSIS: Retinal detachment, left eye. POSTOPERATIVE DIAGNOSES: Retinal detachment, left eye; persistent macular hole, left eye. PROCEDURE: Pars plana vitrectomy, repair of retinal detachment with endodrainage of subretinal fluid, attempted membrane peeling, panretinal laser, inferior iridotomy and 1000 centistoke silicone oiltamponade, left eye. ANESTHESIA: Monitored anesthesia care with local (5 mL of 1% plain lidocaine mixed with 5 mL of 0.5% plain bupivacaine for 5 mL retrobulbar, 1 mL supratrochlear and 1 mL modified van Lint blocks). IV FLUIDS: Per the anesthesia record. URINE OUTPUT: None. ESTIMATED BLOOD LOSS: None. COMPLICATIONS: None. NARRATIVE: The patient was correctly identified as Jerad Jauregui in the preoperative holding area and brought to the operating room where local anesthesia was given on the left side in a standard fashion following light IV sedation. The patient was prepped and draped in the usual sterile fashion for vitreoretinal surgery on the left side. A wire lid speculum was placed between the lids of the lefteye. Superonasal, superotemporal and inferotemporal conjunctival peritomies were dissected using the blunt Keanu scissors and tissue forceps. Episcleral hemostasis was maintained using light application of the wet-field cautery. A 5- 0 Mersilene suture was placed in 2 horizontal and parallel intrascleral mattress bites to surround a point marked to be 3.5 mm posterior to the corneoscleral limbus in the inferotemporal quadrant. An MVR blade was used to fashion a full- thickness sclerotomy at this point. The 4 mm infusion cannula connected to the infusion line was inserted and placed through the sclerotomy and tied securely using the preplaced Mersilene suture. The tip of the infusion line was verified to be in the intravitreal cavity by transpupillary illumination so the infusion line was turned on. Additional 5-0 Mersilene suture was placed at the 3 o'clock and 9 o'clock positions, just behind the limbus, for the purpose of anchoring the lens carrier ring. Similar sclerotomies were made in each of the superonasal and superotemporal quadrants at points marked to be 3.5 mm posterior to the corneoscleral limbus. The lens carrier ring was sewn in place. The microscope macular protector was turned on and plugs were in the superior sclerotomies at all times during the surgery when direct illumination was not required and instruments were not in the eye, respectively. With a corneal contact lens in place and the endoilluminator probe and vitrectomy cutter handpiece in place through the superior sclerotomies, automated 3-port pars plana vitrectomy was commenced. Initially, residual vitreous gas tamponade was removed. There was virtually nothing by way of remaining vitreous gel present following earlier surgery. 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 There were no other breaksidentifiable, even within the bounds of the inferior and macula involving retinal detachment. However, the macular hole appeared patent. Examination of the macula with the operating microscope confirmed the patency of the macular hole. A complete air-fluid exchange was performed using the silicone-tipped extrusion cannula to drain just in front of the hole. Under air, attempts were made with a bent-tipped MVR blade and internal limiting membrane forceps to identify and strip any remaining premacular membranes but none were found. The laser indirect ophthalmoscope was employed to place moderately dense panretinal laser in the fundus periphery in all quadrants. A small inferior iridotomy was fashioned with the vitrectomy cutter handpiece. The vitreous cavity was filled with 1000 centistoke silicone oil injected with the automated handpiece. The Mersilene sutures were cut and the sclerotomies closed with [id number] 7-0 Vicryl suture. Finger tension on the globe was approximately 20 and the wounds were secure. The conjunctiva was reapproximated about the limbus in several locations using interrupted 7-0 Vicryl suture. Subconjunctival antibiotic and steroid injections were administered. The speculum was removed. A drop of atropine ophthalmic solution and a ribbon of TobraDex ophthalmic ointment were placed on the eye. The eye was patched and shielded. The patient left the operating room in stable condition. Unless otherwise noted, there were no complications, no blood loss, no cultures obtained, no specimens removed, and no drains retained. Timoteo Hollins MD 09 08 AM / Timoteo Hollins MD mn Confirmation: [id number] Dictation ID: [id number] cc:Timoteo Payne MD * OR PreOp - BROOMMAKING SUPERVISOR, SCAN 2 - 03/09/2013 0909 EST * Anesthesia Procedure Notes - BROOMMAKING SUPERVISOR, SCAN 2 - 03/06/2013 1403 EST * OR PreOp - BROOMMAKING SUPERVISOR, SCAN 2 - 03/06/2013 1349 EST * OR Surgeon - Timoteo Hollins - 03/06/2013 1344 EST Brief Op Note Pre-op Diagnosis(es): retinal detachment, possible open macular hole left eye Post-op Diagnosis(es): retinal detachment, macular hole left eye Procedure(s): vitrectomy repair of retinal detachment, membrane peeling, air- fluid exchange with endodrainage of subretinal fluid, laser retinopexy, inferior iridotomy, 1,000 centistoke silicone oil tamponade left eye Surgeon: Scottie Senior Asic Design Engineer: Obinna Anesthesia: MAC/local IV Fluid: per Anesthesia Urine output: none Complication(s): none Specimen(s): none Misc: n/a * Anesthesia Preprocedure Evaluation - BROOMMAKING SUPERVISOR, SCAN 2 - 03/06/2013 1126 EST documented in this encounter Plan of Treatment Not on file documented as of this encounter Procedures Procedure Name Priority Date/Time Associated Diagnosis Comments ECG REPORT - SCANNED 03/09/2013 9:09 EST documented in this encounter Results * ECG REPORT - SCANNED (03/09/2013 9:09 EST) 03/09/2013 9:09 EST Scan 2 Product Marketing Executive PROCEDURE/MINOR PING GICAL ORDERABLES documented in this encounter Visit Diagnoses Diagnosis Retinal detachment, left- Primary Unspecified retinal detachment Retinal detachment, left Unspecified retinal detachment documented in this encounter Administered Medications Inactive Administered Medications - up to 3 most recent administrations Medication Order MAR Action Action Date Dose Rate Site cyclopentolate (CYCLOGYL) 1 % ophthalmic solution 1 Drop 1 Drop, left eye, PRE-OP Q 5 MINUTES, 3 doses, Starting on Tue03/06/13 at 1049, Until Tue03/06/13 at 1119, Other, vitreoretinal surgery, Routine, Pre-Op DOS Rx Approved Given 03/06/2013 11:19 EST 1 Drop Given 03/06/2013 11:13 EST 1 Drop Given 03/06/2013 11:08 EST 1 Drop flurbiprofen (OCUFEN) 0.03 % ophthalmic solution 1 Drop 1 Drop, left eye, PRE-OP Q 30 MINUTES, 4 doses, Starting on Tue03/06/13 at 1049, Until Tue03/06/13 at 1655, vitreoretinal surgery, Routine, Pre-Op DOS Rx Approved Given 03/06/2013 11:08 EST 1 Drop lactated ringers (LR) infusion at 25 mL/hr, intravenous, CONTINUOUS, Starting on Tue03/06/13 at 1130, Until Tue03/06/13 at 1655, Routine, Pre Op Day of Surgery New Bag 03/06/2013 11:08 EST 25 mL/hr ofloxacin (OCUFLOX) 0.3 % ophthalmic solution 1 Drop 1 Drop, left eye, PRE-OP Q 5 MINUTES, 3 doses, Starting on Tue03/06/13 at 1049, Until Tue03/06/13 at 1119, vitreoretinal surgery, Routine, Pre-Op DOS Rx Approved Given 03/06/2013 11:19 EST 1 Drop Given 03/06/2013 11:13 EST 1 Drop Given 03/06/2013 11:08 EST 1 Drop phenylephrine (MYDFRIN) 2.5 % ophthalmic solution 1 Drop 1 Drop, left eye, PRE-OP Q 5 MINUTES, 3 doses, Starting on Tue03/06/13 at 1049, Until Tue03/06/13 at 1119, Irritation, vitreoretinal surgery, Routine, Pre-Op DOS Rx Approved Given 03/06/2013 11:19 EST 1 Bear p Given 03/06/2013 11:13 EST 1 Drop Given 03/06/2013 11:08 EST 1 Drop tropicamide (MYDRIACYL) 1 % ophthalmic solution 1 Drop 1 Drop, left eye, PRE-OP Q 5 MINUTES, 3 doses, Starting on Tue03/06/13 at 1049, Until Tue03/06/13 at 1119, vitreoretinal surgery, Routine, Pre-Op DOS Rx Approved Given 03/06/2013 11:19 EST 1 Drop Given 03/06/2013 11:13 EST 1 Drop Given 03/06/2013 11:08 EST 1 Drop documented in this encounter Discontinued Medications Medication Sig Discontinue Reason Start Date End Da te latanoprost (XALATAN) 0.005 % ophthalmic solution Place 1 Drop into the left eye daily. Error 03/03/2013 ofloxacin (OCUFLOX) 0.3 % ophthalmic solution Place 1 Drop into the left eye 4 times daily. Error 03/03/2013 prednisoLONE (PRED FORTE) 1 % ophthalmic suspension Place 1 Drop into the left eye 4 times daily. Error 03/03/2013 BRIMONIDINE TARTRATE (BRIMONIDINE OPHTHALMIC) Apply to eye. Left eye 03/06/2013 Tobramycin-Lotepred (ZYLET) 0.3-0.5 % Drops, Suspension Apply to eye. Left eye 03/06/2013 documented as of this encounter Historical Medications * This list may reflect changes made after this encounter. Medication Sig Dispensed Refills Start Date End Date lutein 6 mg tablet Take 1 Tab by mouth daily. vitamin b-12 (CYANOCOBALAMIN) 50 mcg tablet Take 50 mcg by mouth daily. Multivitamins with Minerals tablet Take 1 Tab by mouth daily. BRIMONIDINE TARTRATE (BRIMONIDINE OPHTHALMIC) Apply to eye. Left eye 03/06/2013 Tobramycin-Lotepred (ZYLET) 0.3-0.5 % Drops, Suspension Apply to eye. Left eye 03/06/2013 latanoprost (XALATAN) 0.005 % ophthalmic solution Place 1 Drop into the left eye daily. 03/03/2013 prednisoLONE (PRED FORTE) 1 % ophthalmic suspension Place 1 Drop into the left eye 4 times daily. 03/03/2013 ofloxacin (OCUFLOX) 0.3 % ophthalmic solution Place 1 Drop into the left eye 4 times daily. 03/03/2013 added in this encounter Active and Recently Administered Medications Times are shown in EST. Continuous Medication Order 03/04/2013 03/05/2013 03/06/2013 lactated ringers (LR) infusion (CANCELED) at 25 mL/hr, intravenous, CONTINUOUS, Starting on Tue03/06/13 at 1130, Until Tue03/06/13 at 1655, Routine, Pre Op Day of Surgery 1108 (New Bag - Prov ider: Naty Flores RN) PRN Medication Order 03/04/2013 03/05/2013 03/06/2013 cyclopentolate (CYCLOGYL) 1 % ophthalmic solution 1 Drop (COMPLETED) 1 Drop, left eye, PRE-OP Q 5 MINUTES, 3 doses, Starting on Tue03/06/13 at 1049, Until Tue03/06/13 at 1119, Other, vitreoretinal surgery, Routine, Pre-Op DOS Rx Approved 1108 (Given - Provid er: Naty Flores RN)1113 (Given - Provider: Naty Flores RN)1119 (Given - Provider: Naty Flores RN) flurbiprofen (OCUFEN) 0.03 % ophthalmic solution 1 Drop (CANCELED) 1 Drop, left eye, PRE-OP Q 30 MINUTES, 4 doses, Starting on Tue03/06/13 at 1049, Until Tue03/06/13 at 1655, vitreoretinal surgery, Routine, Pre-Op DOS Rx Approved 1108 (Given - Provid er: Naty Flores RN) ofloxacin (OCUFLOX) 0.3 % ophthalmic solution 1 Drop (COMPLETED) 1 Drop, left eye, PRE-OP Q 5 MINUTES, 3 doses, Starting on Tue03/06/13 at 1049, Until Tue03/06/13 at 1119, vitreoretinal surgery, Routine, Pre-Op DOS Rx Approved 1108 (Given - Provid er: Naty Flores RN)111 (Given - Provider: Naty Flores RN)111 (Given - Provider: Naty Flores RN) phenylephrine (MYDFRIN) 2.5 % ophthalmic solution 1 Drop (COMPLETED) 1 Drop, left eye, PRE-OP Q 5 MINUTES, 3 doses, Starting on Tue03/06/13 at 1049, Until Tue03/06/13 at 1119, Irritation, vitreoretinal surgery, Routine, Pre-Op DOS Rx Approved 1108 (Given - Provid er: Naty Flores RN)1113 (Given - Provider: Naty Flores RN)1119 (Given - Provider: Naty Flores RN) tropicamide (MYDRIACYL) 1 % ophthalmic solution 1 Drop (COMPLETED) 1 Drop, left eye, PRE-OP Q 5 MINUTES, 3 doses, Starting on Tue03/06/13 at 1049, Until Tue03/06/13 at 1119, vitreoretinal surgery, Routine, Pre-Op DOS Rx Approved 1108 (Given - Provid er: Naty Flores RN)1113 (Given - Provider: Naty Flores RN)1119 (Given - Provider: Naty Flores RN) documented in this encounter Orders Medications Ordered That Josh ht Not Have Been Administered Count Last Ordered Date First Ordered Date acetaminophen (TYLENOL) tablet 1,000 mg 1 1 05/07/2012 atropine 0.1 mg/mL syringe 0.4 mg 1 013 diphenhydrAMINE (BENADRYL) i njection 6.25 mg 1 03/06/2013 fentaNYL citrate (PF) 50 mcg /mL injection 25-100 mcg 1 03/06/2013 lactated ringers (LR) infusion 1 03/06/2013 metoCLOPramide (REGLAN) injection 10 mg 1 1 05/07/2012 nalOXone (NARCAN) injection 0.2 mg 1 2012 ondansetron (PF) (ZOFRAN) injection 2 mg 1 03/06/2013 Nursing Count Last Ordered Date First Orde red Date INSERT PERIPHERAL IV 1 03/06/2013 Admission Count Last Ordered Date First Orde red Date STATUS: OUTPATIENT SURGICAL OP BED/SERVICES 1 03/06/2013 Transfer Count Last Ordered Date First Orde red Date NOTIFY PPS PACU PATIENT DISCHARGE 1 013 Discharge Count Last Ordered Date First Orde red Date DISCHARGE PATIENT 1 03/06/2013 documented in this encounter Care Teams Strip Mine Supervisor Relationship Specialty Start Date End Date Froy Monroe MD PCP - General 12/11/12 documented as of this encounter
--- OUTSIDE RECORDS SUMMARY | 2024-01-23 15:49 | XMS_ITS | Encounter Summary ---
Author Organization [facility] [place] [address] Care Team Providers Care Cardiovascular Tech Name Role Phone Froy Monroe MD Primary Care Provider + Encounter Details Date Type Department Care Team (Latest Contact Info) Description 04/15/2015 1:59 PM EST - 04/15/2015 11:59 PM [facility] Hospital [place] [address] Carley Crockett Jr., MD [facility] [place] [address] Nephrolithiasis Discharge Disposition: Home Social History Tobacco [...] tablet Take 5 mg by mouth daily. acetaminophen (TYLENOL) 325 mg Tablet Take 2 tablets by mouth every 4 hours as needed for Pain. 30 tablet 1 01/24/2015 08/27/2015 oxyCODONE (ROXICODONE) 5 mg Tablet Take 1 tablet by mouth every 4 hours as needed for Pain. 30 tablet 0 01/24/2015 08/27/2015 LOTEPREDNOL ETABONATE (LOTEMAX OPHT) Apply 1 drop to eye 2 times daily. Left eye 03/16/2016 BRIMONIDINE TARTRATE/TIMOLOL (COMBIGAN OPHT) Apply 1 drop to eye 2 times daily. Left eye 10/10/2015 DORZOLAMIDE HCL (DORZOLAMIDE OPHT) Apply 1 drop to eye 2 times daily. Left eye 09/01/2015 BIMATOPROST (LUMIGAN OPHT) Place 1 drop into the left eye daily. 10/10/2015 tamsulosin (FLOMAX) 0.4 mg capsule Take 0.4 mg by mouth daily. 04/25/2002 01/20/2023 documented as of this encounter Plan of Treatment Upcoming Encounters Date Type Department Care Team (Late st Contact Info) Description 01/25/2025 8:15 AM EDT Office Visit Dermatology at [place] [address] [address] [place] [address] Cortez Bey MD [address], [place] [address] documented as of this encounter Procedures Procedure Name Priority Date/Time Associated Diagnosis Comments US RETROPERITONEAL COMPLETE Routine 04/15/2015 2:36 PM EST Nephrolithiasis documented in this encounter Results * US Retroperitoneal Complete (04/15/2015 2:36 PM EST) Anatomical Region Laterality Modality Abdomen Ultrasound 04/15/2015 2:33 PM EST Impressions 04/15/2015 3:52 PM EST Impression Ultrasound - ??Retroperitoneal Complete - Summary 1. Two non-obstructing left mid pole renal stones, the largest of which measures 16 mm. No hydronephrosis. 2. Normal right kidney and urinary bladder. I ??viewed the images and agree with the above interpretation. ?Jennifer Ochoa MD Electronically Signed Final Report ?? 04/15/2015 03:51 pm Narrative 04/15/2015 3:52 PM EST Renal ?(Signed Final 04/15/2015 03:51 pm) Patient Info ID #: ? [id number] ?: ??[birth year] (59 yrs) Name: ? JERAD JAUREGUI ? Visit Date: 04/15/2015 02:33 pm Performed By Performed By: ? Montse Salinas RDMS Attending: ?Paty CARIAS, Jennifer Hutchinson Associate: ?Saida CARIAS, Linda Referred By: ?CARLEY CROCKETT MD Service(s) Provided ??URETRO - Retroperitoneal Complete - [id number] ? [id number] Indications ??history of nephrolithiasis, s/p left ESWL, ??assess for presence and size of stones Comparison CT scan: 12/24/14 Right Kidney Size (cm) ?L: ??9.7 Cortical Thickness: ?Normal Cortical Echogenicity: ?? Normal Hydronephrosis: ?No sonographic evidence Left Kidney Size (cm) ?L: ??11.0 Cortical Thickness: ?Normal Cortical Echogenicity: ?? Normal Hydronephrosis: ?No sonographic evidence Comment: ?2 non-obstructing stones seen; largest mid pole ? measuring 16mm Urinary Bladder Pre-void (cm) ? L: ??5.5 ? AP: ??3.9 ? TV: ??6.4 Vol (ml): ?71.9 Comment: ?Partially distended, normal contour Procedure Note Jennifer Eckert MD - 04/15/2015 Renal (Signed Final 04/15/2015 03:51 pm) Patient Info ID #: [id number] : [birth year] (59 yrs) Name: JERAD JAUREGUI Visit Date: 04/15/2015 02:33 pm Performed By Performed By: Montse Salinas RDMS Attending: Jennifer Newman MD Associate: Linda Cintron MD Referred By: CARLEY CROCKETT MD Service(s) Provided URETRO - Retroperitoneal Complete - [id number] Indications history of nephrolithiasis, s/p left ESWL, assess for presence and size of stones Comparison CT scan: 12/24/14 Right Kidney Size (cm) L: 9.7 Cortical Thickness: Normal Cortical Echogenicity: Normal Hydronephrosis: No sonographic evidence Left Kidney Size (cm) L: 11.0 Cortical Thickness: Normal Cortical Echogenicity: Normal Hydronephrosis: No sonographic evidence Comment: 2 non-obstructing stones seen; largest mid pole measuring 16mm Urinary Bladder Pre-void (cm) L: 5.5 AP: 3.9 TV: 6.4 Vol (ml): 71.9 Comment: Partially distended, normal contour IMPRESSION Impression Ultrasound - Retroperitoneal Complete - Summary 1. Two non-obstructing left mid pole renal stones, the largest of which measures 16 mm. No hydronephrosis. 2. Normal right kidney and urinary bladder. I viewed the images and agree with the above interpretation. Jennifer Ochoa MD Electronically Signed Final Report 04/15/2015 03:51 pm Carley Crockett Jr., MD IMG US GEN ORDERAB LES documented in this encounter Visit Diagnoses Diagnosis Nephrolithiasis Calculus of kidney documented in this encounter Care Teams Cardiovascular Tech Relationship Specialty Start Date End Date Froy Monroe MD [address] [place] [address] PCP - General 02/17/10 10/26/16 documented as of this encounter
--- OUTSIDE RECORDS SUMMARY | 2024-01-23 15:49 | XMS_ITS | Encounter Summary ---
[place] [address] Care Team Providers Care Report Writer Name Role Phone Froy Monroe MD Primary Care Provider + Encounter Details Date Type Department Care Team (Late st Contact Info) Description 11/22/2013 9:15 AM EDT Office Visit Dermatology at [address] [phone] Cortez Bey MD [address] [facility], [facility] [place] [address] Basal cell carcinoma (Primary Dx) Social History Tobacco Use Types Packs/Day Years Used Date Smoking Tobacco: Never Sex and Gender Information Value Date Recorded Sex Assigned at Not on file Gender Identity Not on file Sexual Orientation Not on file documented as of this encounter Progress Notes * Cortez Bey MD - 11/22/2013 9:36 AM EDT Problem: 1. Followup skin check. 2. History of BCCA, left distal arm, July 2012. Jerad follows up and has noted erythema and some induration at the site of the 5-mm punch biopsy of his BCCA. Physical examination shows indeed that he does have recurrence at this site of basal cell carcinoma. Assessment and Plan: BCCA, left distal arm. a. Discussed diagnosis. b. Recommend surgical excision. c. Answered patient questions. d. We will set up a 30-minute appointment for excision of this at the patient's convenience. COPY: Fryo Monroe M.D. documented in this encounter Plan of Treatment Upcoming Encounters Date Type Department Care Team (Late st Contact Info) Description 01/25/2025 8:15 AM EDT Office Visit Dermatology at [place] [address] [place] [address] Cortez Bey MD [address] [facility], [place] [address] documented as of this encounter Visit Diagnoses Diagnosis Basal cell carcinoma- Primary Basal cell carcinoma of skin, site unspecified documented in this encounter Care Teams Report Writer Relationship Specialty Start Date End Date Froy Monroe MD [address] [place] [address] PCP - General 02/17/10 10/26/16 documented as of this encounter
--- OUTSIDE RECORDS SUMMARY | 2024-01-23 15:49 | XMS_ITS | Encounter Summary ---
Author Organization [facility] [place] [address] Care Team Providers Care Traffic Or System Dispatcher Name Role Phone Froy Monroe MD Primary Care Provider + Reason for Visit * Reason Comments Nephrolithiasis Encounter Details Date Type Department Care Team (Late st Contact Info) Description 03/16/2016 4:30 PM EST [place] [address] Carley Crockett Jr., MD [facility] [place] [address] Nephrolithiasis Social History Tobacco Use Types Packs/Day [...] Sign Reading Time Taken Comments Blood Pressure 124/71 03/16/2016 4:26 PM EST Pulse 84 03/16/2016 4:26 PM EST Temperature 36.9 ??C (98.4 ??F) 03/16/2016 4:26 PM ES T Respiratory Rate - - Oxygen Saturation 95% 03/16/2016 4:26 PM EST Inhaled Oxygen Concentration - - Weight - - Height - - Body Mass Index - - documented in this encounter Progress Notes * Carley Crockett Jr., MD - 03/16/2016 4:30 PM EST HPI: Jerad Jauregui is a 60 y.o. man who returns for urologic follow up regarding left nephrolithiasis. He most recently underwent left renal [...] complaints. Review of Systems Constitution: Negative for chills and fever. Gastrointestinal: Negative for abdominal pain. Genitourinary: Negative for flank pain. 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 He appears well- developed and well-nourished. No distress. Cardiovascular: Normal rate. Pulmonary/Chest: Effort normal. Abdominal: Soft. He exhibits no distension. There is no tenderness. There is no rebound. Genitourinary: Genitourinary Comments: No CVA tenderness to percussion bilaterally Neurological: He is alert and oriented to person, place, and time. Skin: Skin is warm and dry. He is not diaphoretic. Psychiatric: He has a normal mood and affect. His behavior is normal. Imaging Studies: I independently reviewed the CT from today, which shows that of the 2 adjacent stones, the lower pole stone is slightly larger (10-13mm) whereas the one closer to the UPJ is much smaller (2-3 mm); a stable lower pole 4-5 mm stone is also noted. All are non-obstructing. No hydronephrosis noted. Impression/Plan: 1) Left renal stone(s) -- We discussed that SWL appears to have effectively treated one of the 2 stones. He is not inclined to pursue additional SWL at this time. We reviewed other options including active surveillance, URS (potentially staged), and PCNL. He wishes to return in approximately 8 months with renal u/s and KUB to reassess stone burden. We discussed pathophysiology of carbonic anhydrase induction of stones and I offered 24h urine to more carefully assess if he has developed alkaline urine and dRTA-type changes to suggest lithogenic effects from his eye drops. He declines at this point, will await follow up imaging next fall. He understands to call or return sooner if interval problems or questions arise. 2)LUTS. Stable, with minimal bother. He had previously declined further investigation or intervention. Continue current course. documented in this encounter Plan of Treatment Upcoming Encounters Date Type Department Care Team (Late st Contact Info) Description 01/25/2025 8:15 AM EDT Office Visit Dermatology at [place] [address] [place] [address] Cortez Bey MD [address], [place] [address] documented as of this encounter Results * [...] Truong at 10/27/2016 2:56 PM ? Eliseo Truong MD Electronically Signed Final Report ?? 10/27/2016 03:03 pm Narrative 10/27/2016 3:04 PM EDT Renal ? (Signed Final 10/27/2016 03:03 pm) PATIENT INFO: ID #: ? [id number] ?: ??[birth year] (61 yrs) Name: ? JERAD JAUREGUI ? Visit Date: 10/27/2016 02:06 pm PERFORMED BY: Performed By: ? Kristian Perez RDMS Attending: ?Alexi CARIAS, Eliseo Ko. Resident: ? Mildred CARIAS, Sumeet Referred By: ?CARLEY CROCKETT JR Location: ? [facility] SERVICE(S) PROVIDED: ??URETRO - Retroperitoneal Complete - [id number] ? [id number] INDICATIONS: ??? stones COMPARISON: Prior CT Scan [...] 10/27/2016 03:03 pm) PATIENT INFO: ID #: [id number] : [birth year] (61 yrs) Name: JERAD JAUREGUI Visit Date: 10/27/2016 02:06 pm PERFORMED BY: Performed By: Kristian Perez RDMS Attending: Eliseo Truong MD Resident: Sumeet Levy MD Referred By: CARLEY CROCKETT JR Location: [facility] SERVICE(S) PROVIDED: URETRO - Retroperitoneal Complete - [id number] INDICATIONS: ? stones COMPARISON: Prior CT Scan [...] Signed Final Report 10/27/2016 03:03 pm Carley Crockett Jr., MD IM US GEN ORDERAB LES documented in this encounter Visit Diagnoses Diagnosis Nephrolithiasis Calculus of kidney Nephrolithiasis Calculus of kidney documented in this encounter Care Teams Traffic Or System Dispatcher Relationship Specialty Start Date End Date Froy Monroe MD [address] [place] [address] PCP - General 02/17/10 10/26/16 documented as of this encounter
--- OUTSIDE RECORDS SUMMARY | 2024-01-23 15:49 | XMS_ITS | Encounter Summary ---
Author Organization [facility] Address [facility] [place] [address] Care Team Providers Care Continuous Improvement Director Name Role Phone Froy Monroe MD Primary Care Provider + Encounter Details Date Type Department Care Team (Latest Contact Info) Description 12/24/2014 2:14 PM EDT - 12/24/2014 4:42 PM EDT Hospital Encounter XRay at [address] [place] [address] Nephrolithiasis Social History Tobacco Use Types Packs/Day [...] tablet Take 5 mg by mouth daily. LOTEPREDNOL ETABONATE (LOTEMAX OPHT) Apply 1 drop [...] 8:15 AM EDT Office Visit Dermatology at [place] [address] [place] [address] Cortez Bey MD [address], [place] [address] documented as of this encounter Procedures Procedure Name Priority Date/Time Associated Diagnosis Comments XR ABDOMEN 1 VIEW Routine 12/24/2014 2:2 1 PM EDT Nephrolithiasis documented in this encounter Results * XR abdomen 1 view (12/24/2014 2:21 PM EDT) Anatomical Region Laterality Modality Abdomen N/A Radiographic Lida ging 12/24/2014 2:21 PM EDT Impressions 12/24/2014 2:33 PM EDT IMPRESSION: 1. 2.5 cm calculus projecting over the expected area of the left renal pelvis perhaps slightly larger than on the prior examination. 2. No calculi project over the right renal fossa. Narrative 12/24/2014 2:33 PM EDT EXAMINATION: ABDOMEN SINGLE VIEW CLINICAL HISTORY: ? stones TECHNIQUE: Supine. COMPARISON: Radiograph January 16, 2014 and renal ultrasound December 24, 2014. FINDINGS: There is a 2.5 cm calculus projecting over the expected area of the left renal pelvis perhaps slightly larger than on the prior examination. No calculi project over the right renal fossa. There are multiple calcifications in the pelvis which represent phleboliths. There is a moderate amount of stool in the colon partial obscuring the renal fossa and the course of the ureters. There is no evidence of pneumoperitoneum. Levoconvex scoliosis of the lumbar spine is noted with the apex at the L4-5 level. Diffuse degenerative changes are noted in the lumbar spine Procedure Note Homero Garces MD - 12/24/2014 EXAMINATION: ABDOMEN SINGLE VIEW CLINICAL HISTORY: ? stones TECHNIQUE: Supine. COMPARISON: Radiograph January 16, 2014 and renal ultrasound November. FINDINGS: There is a 2.5 cm calculus projecting over the expected area of the leftrenal pelvis perhaps slightly larger than on the prior examination. No calculiproject over the right renal fossa. There are multiple calcifications in thepelvis which represent phleboliths. There is a moderate amount of stool in the colon partial obscuring therenal fossa and the course of the ureters. There is no evidence ofpneumoperitoneum. Levoconvex scoliosis of the lumbar spine is noted with the apex at theL4-5 level. Diffuse degenerative changes are noted in the lumbar spine IMPRESSION IMPRESSION: 1. 2.5 cm calculus projecting over the expected area of the left renalpelvis perhaps slightly larger than on the prior examination. 2. No calculi project over the right renal fossa. Shantanu Goodman Jr., MD IMG DX ORDERABLES documented in this encounter Visit Diagnoses Diagnosis Nephrolithiasis Calculus of kidney documented in this encounter Care Teams Continuous Improvement Director Relationship Specialty Start Date End Date Froy Monroe MD [address] [facility] [place] [address] PCP - General 02/17/10 10/26/16 documented as of this encounter
--- OUTSIDE RECORDS SUMMARY | 2024-01-23 15:49 | XMS_ITS | Encounter Summary ---
Author Organization [facility] Address [address] [place] [address] Care Team Providers Care Primary Care Physician Name Role Phone Froy Monroe MD Primary Care Provider U navailable Encounter Details Date Type Department Care Team (Latest Contact Info) Description 01/30/2013 7:10 EST - 01/30/2013 12:50 EST Hospital Encounter [facility] Perioperative Services- [facility] [address] [place] [address] Timoteo Hollins MD [address] [place] [phone] Macular cyst, hole, or pseudohole of retina (Primary Dx) Discharge Disposition: Home or Self Care Social History Tobacco Use Types Packs/Day Years Used Date Smoking Tobacco: Never Assessed Sex and Gender Information Value Date Recorded Sex Assigned at Not on file Gender Identity Not on file Sexual Orientation Not on file documented as of this encounter Last Filed Vital Signs Vital Sign Reading Time Taken Comments Blood Pressure 114/71 01/30/2013 1230 EST Pulse - - Temperature 37 ??C (98.6 ??F) 01/30/2013 1230 EST Respiratory Rate 14 01/30/2013 1230 EST Oxygen Saturation 97% 01/30/2013 1230 EST Inhaled Oxygen Concentration - - Weight 83.9 kg (185 lb) 01/23/2013 0915 EDT Height 185.4 cm (6' 1) 01/23/2013 0915 EDT Body Mass Index 24.41 01/23/2013 0915 EDT documented in this encounter Discharge Instructions * Discharge Instructions* Timoteo Hollins - 01/30/2013 11:48 EST Leave your eye patch and shield - if any were placed by your surgeon - in place. For pain, you may use Tylenol (acetominophen) and/or Advil (ibuprofen) or other similar non-prescription, [id number] medications in doses as noted on manufacturers' [...] questions about use of these medications, call [facility] at [phone]. Your [facility] surgeon will have spoken directly with you and/or your family membersand/or other loved ones who are with you today either right after your surgery today or in the office previously about any special post- operative positioning requirements that may be needed. For example, sometime patients are required to maintain strict post-operative face-down (i.e., sleeping on one's stomach) positioning for days after surgery for a condition called macular hole. If you cannot recall whether you have any post-operative positioning requirements, ask your recovery room nurse and/or call [facility] at [phone]. For showering, avoid directing your face into the stream of the shower head. Do not worry about a small amount of water and/or soap that gets into your eye patch and/or eye during shampooing, face washing, etc. Do not lift anything heavier than a light bag of groceries and, until notified by your surgeon, do not exercise. Follow-up tomorrow at [facility], [address] [place] [address], [facility], [place], any time between 9 AM and 2 PM. (That location is up the block from [employer] at the corner of [facility] [address] and [facility], and across the street from [employer] and from [employer].) At that appointment, your surgeon and the [facility] staff will review post-operative instructions that will [...] Take 5 mg by mouth at bedtime. tamsulosin (FLOMAX) 0.4 mg capsule Take 0.4 mg by mouth at bedtime. documented as of this encounter Discharge Disposition Disposition Code Departure Means Destination Home or Self Care documented in this encounter Progress Notes * Donita Weston RN - 01/23/2013 0930 EDT Jerad Jauregui has been instructed as follows regarding medication administration for the day of the scheduled procedure. Date of Surgery: 01/30/13 Instructions for Taking Medications Day of Surgery Medication Last Dose Hold DOS Take DOS finasteride (PROSCAR) 5 mg tablet Yes takes at HS tamsulosin (FLOMAX) 0.4 mg capsule Yes takes at HS documented in this encounter H&P Notes * EXTENDER, SCAN 2 - 02/02/2013 1322 EST * Timoteo Hollins - 01/30/2013 0910 EST The preoperative history and physical which was performed within 30 days of this procedure has been reviewed and the clinically appropriate elements of the physical examination have been repeated. There are no changes to the documented history and physical or if so such changes are documented below TIMOTEO HOLLINS 01/30/2013 9:10 documented in this encounter Nursing Notes * EXTENDER, SCAN 2 - 02/02/2013 1322 EST documented in this encounter OR Notes * OR PreOp - EXTENDER, SCAN 2 - 02/02/2013 1322 EST * OR Surgeon - Timoteo Hollins - 01/31/2013 0647 EST OPERATIVE REPORT SERVICE DATE: 01/30/2013 PREOPERATIVE DIAGNOSIS: Macular hole left eye and status post treatment of retinal tear. POSTOPERATIVE DIAGNOSIS: Macular hole left eye and status post treatment of retinal tear; additional retinal tear (probably old). PROCEDURE: Pars plana vitrectomy with membrane peeling, cryoretinopexy, air- fluid exchange and 16% C3F8 gas tamponade, left eye. SURGEON: Timoteo Hollins MD DIRECTOR OF MATERIALS: Pernell Schilling ANESTHESIA: Monitored anesthesia care with local (5 [...] light application of the wet-field cautery. A #5-0 Mersilene suture was placed in 2 horizontal and parallel intrascleral mattress bites to surround a point marked to be 3.5 mm posterior to the corneoscleral limbus inthe inferotemporal quadrant. An MVR blade was used to fashion a full-thickness sclerotomy at this point. The 4 mm infusion cannula connected to the infusion line was inserted and placed through the sclerotomy and tied securely using the preplaced Mersilene suture. The tip of the infusion cannula was verified to be in the intravitreal cavity by transpupillary illumination, so the infusion line wasturned on. Additional 5-0 Mersilene suture was placed at the 3 o'clock and 9 o'clock positions justbehind the limbus for the purpose of anchoring the lens carrier ring. Similar sclerotomies were made in each of the superonasal and superotemporal quadrants at points marked to be 3.5 mm posterior tothe corneoscleral limbus. The lens carrier ring was sewn in place. The microscope macular protectorwas turned on and plugs were in the superior sclerotomies at all times during the surgery when direct illumination was not required and instruments were not in the eye, respectively. With a corneal contact lens in place and the endoilluminator probe and vitrectomy cutter handpiece in place through the superior sclerotomies, complete automated 3-port pars plana vitrectomy was commenced. There was a preexisting posterior vitreous detachment present. Peripheral vitreous trimming was accomplished with adjunctive use of the prismatic contact lens and external transscleral depression. Close inspection of the retro-oral retina inferiorly demonstrated the presence of a tiny horseshoe-shaped retinal break with underlying pigmentary modeling and no surrounding fluid nor hemorrhage. Employing a combination of an MVR blade and an internal limiting membrane forceps premacular membranes were gently stripped from the macular surface. The margins of the hole appeared flaccid. No breaks nor hemorrhage were encountered. Binocular indirect ophthalmoscopy with external transscleral depression revealed the presence of a well surrounded (by chorioretinal scar) old superior retinal break and the above-described tiny inferior break. No additional breaks were identified. The untreated inferior break was treated with external transscleral cryoretinopexy. A complete air-fluid exchange was performed using a silicone-tipped extrusion needle. Then 120 mL of filtered 16% C3F8 gas were passed through the eye, in via the infusion line and out via the superior sclerotomies. These were each closed using rticdh-yi-pyjre #7-0 Vicryl suture. The Mersilene sutures were cut and the lens carrier ring and infusion cannula withdrawn from the field. Each of the scl erotomies was closed using eygdwi-sx-xqauw #7-0 Vicryl suture. Finger tension on the globe was approximately 20 and the wounds were gas tight. The conjunctiva was reapproximated about the limbus in several locations using interrupted #7-0 Vicryl suture. Finger tension on the globe was approximately 20. Subconjunctival antibiotic and steroidinjections were administered. The speculum was removed. A drop of atropine ophthalmic solution and a ribbon of TobraDex ophthalmic ointment were placed on the eye. The eye was patched and shielded. The patient left the operating room in stable condition in a face-down position. Unless otherwise noted, there were no complications, no blood loss, no cultures obtained, no specimens removed, and no drains retained. Timoteo Hollins MD 06 55 PM / Timoteo Hollins MD tn Confirmation: [id number] Dictation ID: [id number] cc:Lan Payne MD * OR PreOp - EXTENDER, SCAN 2 - 01/30/2013 1208 EST * Anesthesia Procedure Notes - EXTENDER, SCAN 2 - 01/30/2013 1156 EST * OR Surgeon - Timoteo Hollins - 01/30/2013 1148 EST Brief Op Note Pre-op Diagnosis(es): macular hole and old retinal break left eye Post-op Diagnosis(es): same; additional (presumed old) retinal break left eye Procedure(s): pars plana vitrectomy with membrane peeling, cryoretinopexy, air- fluid exchange and 16% C3F8 gas tamponade left eye Surgeon: Scottie Crew Caller: Shakir Anesthesia: MAC/local IV Fluid: per Anesthesia Urine output: none Complication(s): none Specimen(s): none Misc: n/a * Anesthesia Preprocedure Evaluation - EXTENDER, SCAN 2 - 01/30/2013 0946 EST documented in this encounter Miscellaneous Notes * Anesthesia Post-Eval - Kari Edwards CRNA - 01/30/2013 1204 EST Post Anesthesia Evaluation Note Date of Service: 01/30/2013 Jerad Jauregui, a 57 y.o. year old male has received MAC today. He has been evaluated, assessed anddischarged from anesthesia care with stable cardiorespiratory function and alert mental status. The last set of recorded vital signs and pain rating were reviewed: Temp: 37.2 ??C (99 ??F) (01/30/13 1151), Heart Rate: 79 BPM (01/30/13 1151), BP: 114/72 mmHg (01/30/13 1151), Resp: 13 (01/30/13 1151), SpO2: 96 % (01/30/13 1151),Numeric Pain Level (Scale 1-10): 0 (denies pain or discomfort) Jerad Jauregui participated in this evaluation unless otherwise noted. His pain, nausea and vomiting have been managed and his body temperature and fluid balance have been restored. Additional monitoring and assessment needs have been addressed. If present, any postoperative events are documented below. Kari Edwards CRNA 01/30/2013 12:04 documented in this encounter Plan of Treatment Not on file documented as of this encounter Procedures Procedure Name Priority Date/Time Associated Diagnosis Comments ECG REPORT - SCANNED 02/02/2013 13:22 EST documented in this encounter Results * ECG REPORT - SCANNED (02/02/2013 13:22 EST) 02/02/2013 13:2 2 EST Scan 2 Residential Aide PROCEDURE/MINOR PING GICAL ORDERABLES documented in this encounter Visit Diagnoses Diagnosis Macular cyst, hole, or pseudohole of retina- Primary Macular cyst, hole, or pseudohole of retina documented in this encounter Administered Medications Inactive Administered Medications - up to 3 most recent administrations Medication Order MAR Action Action Date Dose Rate Site cyclopentolate (CYCLOGYL) 1 % ophthalmic solution 1 Drop 1 Drop, left eye, PRE-OP Q 5 MINUTES, 3 doses, Starting on Tue01/30/13 at 0759, Until Tue01/30/13 at 0903, Other, vitreoretinal surgery, Routine, Pre-Op DOS Rx Approved Given 01/30/2013 9:03 EST 1 Drop Given 01/30/2013 8:59 EST 1 Drop Given 01/30/2013 8:54 EST 1 Drop flurbiprofen (OCUFEN) 0.03 % ophthalmic solution 1 Drop 1 Drop, left eye, PRE-OP Q 30 MINUTES, 4 doses, Starting on Tue01/30/13 at 0759, Until Tue01/30/13 at 1507, vitreoretinal surgery, Routine, Pre-Op DOS Rx Approved Given 01/30/2013 8:56 EST 1 Drop Given 01/30/2013 8:06 EST 1 Drop lactated ringers (LR) infusion at 25 mL/hr, intravenous, CONTINUOUS, Starting on Tue01/30/13 at 0830, Until Tue01/30/13 at 1507, Routine, Pre Op Day of Surgery New Bag 01/30/2013 7:45 EST 25 mL/hr lactated ringers (LR) infusion at 75 mL/hr, intravenous, CONTINUOUS, Starting on Tue01/30/13 at 1200, Until Tue01/30/13 at 1507, Routine, Recovery (only) Rate Change 01/30/2013 11:51 EST 75 mL/hr ofloxacin (OCUFLOX) 0.3 % ophthalmic solution 1 Drop 1 Drop, left eye, PRE-OP Q 5 MINUTES, 3 doses, Starting on Tue01/30/13 at 0759, Until Tue01/30/13 at 0904, vitreoretinal surgery, Routine, Pre-Op DOS Rx Approved Given 01/30/2013 9:04 EST 1 Drop Given 01/30/2013 9:00 EST 1 Drop Given 01/30/2013 8:55 EST 1 Drop phenylephrine (MYDFRIN) 2.5 % ophthalmic solution 1 Drop 1 Drop, left eye, PRE-OP Q 5 MINUTES, 3 doses, Starting on Tue01/30/13 at 0759, Until Tue01/30/13 at 0906, Irritation, vitreoretinal surgery, Routine, Pre-Op DOS Rx Approved Given 01/30/2013 9:06 EST 1 Drop Given 01/30/2013 9:01 EST 1 Drop Given 01/30/2013 8:56 EST 1 Drop tropicamide (MYDRIACYL) 1 % ophthalmic solution 1 Drop 1 Drop, left eye, PRE-OP Q 5 MINUTES, 3 doses, Starting on Tue01/30/13 at 0759, Until Tue01/30/13 at 0907, vitreoretinal surgery, Routine, Pre-Op DOS Rx Approved Given 01/30/2013 9:07 EST 1 Drop Given 01/30/2013 9:02 EST 1 Drop Given 01/30/2013 8:57 EST 1 Drop documented in this encounter Historical Medications * This list may reflect changes made after this encounter. Medication Sig Dispensed Refills Start Date End Date finasteride (PROSCAR) 5 mg tablet Take 5 mg by mouth at bedtime. tamsulosin (FLOMAX) 0.4 mg capsule Take 0.4 mg by mouth at bedtime. added in this encounter Active and Recently Administered Medications Due to Daylight Saving Time, this section may contain times in both EDT and EST. Continuous Medication Order 01/28/2013 01/29/2013 01/30/2013 lactated ringers (LR) infusion (CANCELED) at 25 mL/hr, intravenous, CONTINUOUS, Starting on Tue01/30/13 at 0830, Until Tue01/30/13 at 1507, Routine, Pre Op Day of Surgery 0745 (New Bag - Prov ider: Milagros Dickson RN) lactated ringers (LR) infusion (CANCELED) at 75 mL/hr, intravenous, CONTINUOUS, Starting on Tue01/30/13 at 1200, Until Tue01/30/13 at 1507, Routine, Recovery (only) 1151 (Rate Change - Provider: Kasey Mcpherson RN) PRN Medication Order 01/28/2013 01/29/2013 01/30/2013 cyclopentolate (CYCLOGYL) 1 % ophthalmic solution 1 Drop (COMPLETED) 1 Drop, left eye, PRE-OP Q 5 MINUTES, 3 doses, Starting on Tue01/30/13 at 0759, Until Tue01/30/13 at 0903, Other, vitreoretinal surgery, Routine, Pre-Op DOS Rx Approved 0854 (Given - Provid er: Rosita Fernando RN)0859 (Given - Provider: Rosita Fernando RN)09 (Given - Provider: Rosita Fernando RN) flurbiprofen (OCUFEN) 0.03 % ophthalmic solution 1 Drop (CANCELED) 1 Drop, left eye, PRE-OP Q 30 MINUTES, 4 doses, Starting on Tue01/30/13 at 0759, Until Tue01/30/13 at 1507, vitreoretinal surgery, Routine, Pre-Op DOS Rx Approved 08 (Given - Provid er: Milagros Dickson RN)0856 (Given - Provider: Rosita Fernando RN) ofloxacin (OCUFLOX) 0.3 % ophthalmic solution 1 Drop (COMPLETED) 1 Drop, left eye, PRE-OP Q 5 MINUTES, 3 doses, Starting on Tue01/30/13 at 0759, Until Tue01/30/13 at 0904, vitreoretinal surgery, Routine, Pre-Op DOS Rx Approved 0855 (Given - Provid er: Rosita Fernando RN)09 (Given - Provider: Rosita Fernando RN)09 (Given - Provider: Rosita Fernando RN) phenylephrine (MYDFRIN) 2.5 % ophthalmic solution 1 Drop (COMPLETED) 1 Drop, left eye, PRE-OP Q 5 MINUTES, 3 doses, Starting on Tue01/30/13 at 0759, Until Tue01/30/13 at 0906, Irritation, vitreoretinal surgery, Routine, Pre-Op DOS Rx Approved 0856 (Given - Provid er: Rosita Fernando RN)09 (Given - Provider: Rosita Fernando RN)09 (Given - Provider: Rosita Fernando RN) tropicamide (MYDRIACYL) 1 % ophthalmic solution 1 Drop (COMPLETED) 1 Drop, left eye, PRE-OP Q 5 MINUTES, 3 doses, Starting on Tue01/30/13 at 0759, Until Tue01/30/13 at 0907, vitreoretinal surgery, Routine, Pre-Op DOS Rx Approved 0857 (Given - Provid er: Rosita Fernando, RN)09 (Given - Provider: Rosita Fernando, RN)09 (Given - Provider: Rosita Fernando RN) documented in this encounter Orders Medications Ordered That Josh ht Not Have Been Administered Count Last Ordered Date First Ordered Date atropine 0.1 mg/mL syringe 0.4 mg 1 013 fentaNYL citrate (PF) 50 mcg /mL injection 25-100 mcg 1 01/30/2013 midazolam (VERSED) injection 0.5-2 mg 1 07/2012 nalOXone (NARCAN) injection 0.2 mg 1 2012 ondansetron (PF) (ZOFRAN) injection 2 mg 1 01/30/2013 Nursing Count Last Ordered Date First Orde red Date INSERT PERIPHERAL IV 2 01/30/[address] SEQUENTIAL COMPRESSION DEVICE 1 01/30 Admission Count Last Ordered Date First Orde red Date STATUS: OUTPATIENT SURGICAL OP BED/SERVICES 1 01/30/2013 Transfer Count Last Ordered Date First Orde red Date NOTIFY PPS PACU PATIENT DISCHARGE 1 013 NOTIFY PPS PATIENT ARRIVAL IN PACU 1 2012 Discharge Count Last Ordered Date First Orde red Date DISCHARGE PATIENT 1 01/30/2013 documented in this encounter Care Teams Primary Care Physician Relationship Specialty Start Date End Date Froy Monroe MD PCP - General 12/11/12 documented as of this encounter
--- OUTSIDE RECORDS SUMMARY | 2024-01-23 15:49 | XMS_ITS | Encounter Summary ---
Author Organization [facility] Address [facility] [place] [address] Care Team Providers Care Blind Eyeletter Name Role Phone Froy Monroe MD Primary Care Provider + Reason for Visit * Auth/Cert - Closed Specialty Diagnoses / Procedures Referred By Jeannie t Referred To Contact Diagnoses Calculus of kidney LEFT RENAL STONES Procedures PRO FRAGMENT KIDNEY STONE/ ESWL E.S.W.L. Referral ID Status Reason Start Date Expiration Date Visits Re quested Visits Authorized [id number] Closed 1 1 Encounter Details Date Type Department Care Team (Latest Contact Info) Description 01/24/2015 9:00 AM EDT - 01/24/2015 9:18 AM EDT Hospital Encounter XRay at [address] [place] [address] Shantanu Goodman Jr., MD [facility] [place] [address] Discharge Disposition: Home Social History Tobacco Use [...] 8:15 AM EDT Office Visit Dermatology at [place] [address] [facility] [place] [address] Cortez Bey MD [address], [place] [address] documented as of this encounter Procedures Procedure Name Priority Date/Time Associated Diagnosis Comments XR ABDOMEN 1 VIEW Routine 01/24/2015 11: 10 AM EDT documented in this encounter Results * XR Abdomen 1 View (GENERIC) (01/24/2015 11:10 AM EDT) Anatomical Region Laterality Modality Abdomen N/A Digital Radiogra phy Narrative 01/24/2015 11:51 AM EDT EXAMINATION: XR ABDOMEN ONE VIEW CLINICAL HISTORY: ESWL TECHNIQUE: Single portable AP view of the abdomen. COMPARISON: CT December 24, 2014. Radiograph December 24, 2014. FINDINGS: Stable delineation of multiple left-sided kidney stones in the mid and lower pole of the left kidney. Evaluation of today's radiograph is limited due to superimpositions of fecal material and gas within the colon. Multiple bilateral phleboliths are seen again at the level of the pelvis. Unchanged degenerative changes of the spine and pelvis. Procedure Note Zena Velez MD - 01/24/2015 EXAMINATION: XR ABDOMEN ONE VIEW CLINICAL HISTORY: ESWL TECHNIQUE: Single portable AP view of the abdomen. COMPARISON: CT December 24, 2014. Radiograph December 24, 2014. FINDINGS: Stable delineation of multiple left-sided kidney stones in the mid andlower pole of the left kidney. Evaluation of today's radiograph is limited due to superimpositions offecal material and gas within the colon. Multiple bilateral phleboliths are seen again at the level of thepelvis. Unchanged degenerative changes of the spine and pelvis. Shantanu Goodman Jr., MD IMG DX ORDERABLES documented in this encounter Visit Diagnoses Not on filedocumented in this encounter Care Teams Blind Eyeletter Relationship Specialty Start Date End Date Froy Monroe MD [address] [facility] [place] [place] [address] PCP - General 02/17/10 10/26/16 documented as of this encounter
--- OUTSIDE RECORDS SUMMARY | 2024-01-23 15:49 | XMS_ITS | Encounter Summary ---
Author Organization [facility] Address [facility] [place] [address] Care Team Providers Care Human Capital Consultant Name Role Phone Froy Monroe MD Primary Care Provider + Encounter Details Date Type Department Care Team (Latest Contact Info) Description 09/01/2015 1:45 PM EDT - 09/01/2015 11:59 PM EDT Hospital En[place] [address] Carley Goodman Jr., MD [facility] [place] [address] Nephrolithiasis Discharge Disposition: Home Social History Tobacco [...] mouth daily. dorzolamide-timolol (COSOPT) 22.3-6.8 mg/mL DropsIndications:Primary open angle glaucoma of left eye, mild stage Place 1 drop into the left eye 2 times daily. 10 mL 1 08/27/2015 10/10/2015 latanoprost (XALATAN) 0.005 % DropsIndications:Primary open angle glaucoma of left eye, mild stage Place 1 drop into the left eye nightly. 2.5 mL 12 08/27/2015 09/01/2016 LOTEPREDNOL ETABONATE (LOTEMAX OPHT) Apply 1 drop to eye 2 times daily. Left eye 03/16/2016 BRIMONIDINE TARTRATE/TIMOLOL (COMBIGAN OPHT) Apply 1 drop to eye 2 times daily. Left eye 10/10/2015 BIMATOPROST (LUMIGAN OPHT) Place 1 drop into the left eye daily. 10/10/2015 tamsulosin (FLOMAX) 0.4 mg capsule Take 0.4 mg by mouth daily. 04/25/2002 01/20/2023 documented as of this encounter Plan of Treatment Upcoming Encounters Date Type Department Care Team (Late st Contact Info) Description 01/25/2025 8:15 AM EDT Office Visit Dermatology at [place] [address] [place] [address] Cortez Bey MD [address], [place] [address] documented as of this encounter Procedures Procedure Name Priority Date/Time Associated Diagnosis Comments US RETROPERITONEAL COMPLETE Routine 09/01/2015 2:13 PM EDT Nephrolithiasis documented in this encounter Results * US Retroperitoneal Complete (09/01/2015 2:13 PM EDT) Anatomical Region Laterality Modality Abdomen Ultrasound 09/01/2015 2:10 PM EDT Impressions 09/01/2015 2:51 PM EDT Impression Retroperitoneal Complete Summary 1. Two unchanged non-obstructing left renal calculi. Largest measuring 1.7 cm in the midpole. 2. Normal right kidney and bladder. I ??viewed the images and agree with the above interpretation. ? Adriana [place] MD Electronically Signed Final Report ?? 09/01/2015 02:50 pm Narrative 09/01/2015 2:51 PM EDT Renal ?(Signed Final 09/01/2015 02:50 pm) Patient Info ID #: ? [id number] ?: ??[birth year] (59 yrs) Name: ? JERAD JAUREGUI ? Visit Date: 09/01/2015 02:10 pm Performed By Performed By: ? Brad VALDOVINOS, Montse Attending: ?Lee CARIAS, Adriana Alvarez Associate: ?Stan CARIAS, David Zuniga Referred By: ?CARLEY GOODMAN MD Service(s) Provided ??URETRO - Retroperitoneal Complete - [id number] ? [id number] Indications ??? stones Comparison 04/15/15 Right Kidney Size (cm) ?L: ??10.0 Cortical Thickness: ?Normal Cortical Echogenicity: ?? Normal Hydronephrosis: ?No sonographic evidence Comment: ?No calculi. Left Kidney Size (cm) ?L: ??11.0 Cortical Thickness: ?Normal Cortical Echogenicity: ?? Normal Hydronephrosis: ?No sonographic evidence Comment: ?Two non-obstructing stones seen; largest 1.7cm in ? the mid pole. ??Overall unchanged from prior. Urinary Bladder Pre-void (cm) ? L: ??2.8 ? AP: ??1.7 ? TV: ??3.7 Vol (ml): ?9.2 Comment: ?Partially distended, normal contour Procedure Note Adriana Howard MD - 09/01/2015 Renal (Signed Final 09/01/2015 02:50 pm) Patient Info ID #: [id number] : [birth year] (59 yrs) Name: JERAD JAUREGUI Visit Date: 09/01/2015 02:10 pm Performed By Performed By: Montse Salinas RDMS Attending: Adriana [place] MD Associate: David Pierce MD Referred By: CARLEY GOODMAN MD Service(s) Provided URETRO - Retroperitoneal Complete - [id number] Indications ? stones Comparison US 04/15/15 Right Kidney Size (cm) L: 10.0 Cortical Thickness: Normal Cortical Echogenicity: Normal Hydronephrosis: No sonographic evidence Comment: No calculi. Left Kidney Size (cm) L: 11.0 Cortical Thickness: Normal Cortical Echogenicity: Normal Hydronephrosis: No sonographic evidence Comment: Two non-obstructing stones seen; largest 1.7cm in the mid pole. Overall unchanged from prior. Urinary Bladder Pre-void (cm) L: 2.8 AP: 1.7 TV: 3.7 Vol (ml): 9.2 Comment: Partially distended, normal contour IMPRESSION Impression Retroperitoneal Complete Summary 1. Two unchanged non-obstructing left renal calculi. Largest measuring 1.7 cm in the midpole. 2. Normal right kidney and bladder. I viewed the images and agree with the above interpretation. Adriana Howard MD Electronically Signed Final Report 09/01/2015 02:50 pm Carley Goodman Jr., MD IMG US GEN ORDERAB LES documented in this encounter Visit Diagnoses Diagnosis Nephrolithiasis Calculus of kidney documented in this encounter Care Teams Human Capital Consultant Relationship Specialty Start Date End Date Froy Monroe MD [address] [place] [address] PCP - General 02/17/10 10/26/16 documented as of this encounter
--- OUTSIDE RECORDS SUMMARY | 2024-01-23 15:49 | XMS_ITS | Encounter Summary ---
Author [facility] [place] [address] Care Team Providers Care Ruby Developer Name Role Phone Froy Monroe MD Primary Care Provider + Reason for Visit * Auth/Cert - Closed Specialty Diagnoses / Procedures Referred By Jeannie t Referred To Contact Diagnoses Calculus of kidney LEFT RENAL STONES Procedures PRO FRAGMENT KIDNEY STONE/ ESWL E.S.W.L. Referral ID Status Reason Start Date Expiration Date Visits Re quested Visits Authorized [id number] Closed 1 1 Encounter Details Date Type Department Care Team (Late st Contact Info) Description 01/24/2015 11:00 AM EDT - 01/24/2015 12:15 PM EDT Surgery [place] [id number] Carley Goodman Jr., MD [facility] [address] E.S.W.L. (WRVU 9.77) Social History Tobacco Use Types Packs/Day Years Used Date Smoking Tobacco: Never Sex and Gender Information Value Date Recorded Sex Assigned at Not on file Gender Identity Not on file Sexual Orientation Not on file documented as of this encounter Last Filed Vital Signs Vital Sign Reading Time Taken Comments Blood Pressure 125/73 01/24/2015 10:24 AM EDT Pulse 57 01/24/2015 10:24 AM EDT Temperature 36.8 ??C (98.2 ??F) 01/24/2015 10:24 AM E DT Respiratory Rate 18 01/24/2015 10:24 AM EDT Oxygen Saturation 97% 01/24/2015 10:24 AM EDT Inhaled Oxygen Concentration - - Weight 83.9 kg (185 lb) 01/24/2015 10:24 AM EDT Height 185.4 cm (6' 1) 01/24/2015 10:24 AM EDT Body Mass Index 24.41 01/24/2015 10:24 AM EDT documented in this encounter Discharge Instructions * Discharge Instructions* Suni Reyes RN - 01/24/2015 10:42 AM EDT General Anesthesia Discharge Instructions Go home and rest. You may be sleepy for several hours. Take it easy as sudden position changes may cause nausea and/or dizziness. Use caution on stairs. Do not smoke if you are alone. Follow a light to regular diet as tolerated today. If nausea occurs, start with clear liquids, and progress slowly to a regular diet. Do not drive, operate machinery, drink alcoholic beverages or make any legal decisions after havinggeneral anesthesia. The medications given change your reaction time and alter your judgement. IV site -- slight redness is normal, you can use warm compresses. If tenderness and redness increases or foul drainage occurs, please contact your M.D. Patients who have had endotracheal tubes/LMA (tubes used by the anesthesia staff to ensure a safe airway during your operation) may have a sore throat. This is normal and cold liquids or soothing lozengers will help ease this discomfort. Narcotic pain medications can cause constipation, please ask the surgeons office what they recommend for prevention of this. Some non-pharmaceutical means of constipation prevention include increasing intake of fluids, eating more fruits and vegetables as well as fruit juices. If you are uncomfortable and/or unable to urinate within 8 hours of discharge and it is before 5 pm, call your physician. If it is after 5pm go to the closest emergency room or call the hospital covering machine operator helper at [phone] and ask for physician national flatbed truck driver covering for your physician. Questions or problems after 5pm or on a weekend: Call the [facility] covering machine operator helper at and ask for the physician national flatbed truck driver covering for your doctor. * Patient Instructions* Trini Escalona P - 01/24/2015 11:13 AM EDT Instructions following Shockwave lithotripsy Wound Care: You may notice some bruising at the site of shockwave. Activity: As tolerated by your comfort level. Diet: Drink at least 2 liters of water per day Urination: You will likely have a small amount of blood (pink or cranberry red urine) and small blood clots in your urine for the next several days, up to 10- 14 days. This is normal; however, if you are passing large amounts of blood clots or are bleeding a lot (urine the color of red wine or thickconsistency like ketchup) and unable to urinate please call our office at [phone] before 5PM or [phone] after hours. Please strain your urine with the provided urine strainer and collect all the fragments and bring to your follow up appointment - we will send them for stone analysis at that appointment. Ureteral Stent Patients: If you have a ureteral stent in place, it is normal for it to cause some irritation in your bladder. You may feel that you need to urinate often or with urgency, also there may be irritation when you urinate. This is normal. If you cannot tolerate this irritation or if you have severe back or side pain, you should call our office [phone] before 5PM or [phone] after hours. Call Doctor for: Please call if you have copious blood in your urine, severe back or side pain, pain not controlled by pain medications, persistent nausea and vomiting, or for any fevers greater [email or web address] F. The number for questions is [phone] before 5 PM weekdays and [phone] after 5 PM and weekends. Prescriptions: You have been prescribed -flomax 0.4mg daily. This medication relaxes the smooth muscles or the urinary tract and may help stone passage -oxycodone 5mg as needed every 4 hours. This is an opioid pain medication -colace 100mg twice a day. This is a stool softener to prevent constipation while you are taking the opioid Pain Medication: No driving for 8 hours after any dose of opioid pain medication. Mild pain: use tylenol (acetaminophen) 650mg every 6 hours. Do not use ibuprofen (motrin, advil) or similar medications (aleve) for 2 days, then you can use ibuprofen 600 mg every 6 hours. Severe pain: Use the prescribed opioid pain medication in addition to the tylenol and motrin Follow-up: Follow-up appointment will be scheduled with Dr. Goodman in 3-4 weeks with a renal ultrasound and a KUB (x-ray). Appointment will be mailed to you. Please call [phone] (clinic number forappointments) to confirm date and time of your appointment if you do not receive your appointment in 1 week. documented in this encounter Medications at Time [...] 04/25/2002 01/20/2023 documented as of this encounter H&P Notes * Trini Escalona - 01/24/2015 11:10 AM EDT Interval Pre-op H&P Update Jerad Jauregui is a 59 y.o. male with history of nephrolithiasis s/p ESWL in the past. Now with multiple left renal stones for which he has been asymptomatic. Now presents for left renal ESWL. No changes in medical condition since last Urology office visit. Has not taken aspirin or anticoagulation medications for past 10 days. Patient Vitals for the past 8 hrs: BP Temp Temp src Pulse Resp SpO2 Height Weight 01/24/15 1024 125/73 mmHg 36.8 ??C (98.2 ??F) Temporal 57 18 97 % 185.4 cm (6' 1) 83.915 kg (185 lb) Gen: NAD CV: Heart sounds are nml, no murmur appreciated Pulm: Lungs clear to auscultation b/l Abd: soft, nontender, nondistended A/P: 59 y.o. male with history of nephrolithiasis who presents for left renal ESWL for multiple left renal stones. -risks of procedure discussed with patient including bleeding, infection, injury to adjacent structures, need for future surgery -Consent signed, patient left side marked, all questions answered to patient satisfaction. -Okay to proceed with planned surgery. TRINI ESCALONA MD documented in this encounter Miscellaneous Notes * Op Note - Trini Escalona - 01/24/2015 12:09 PM EDT [facility] [place] Patient Name: Jerad Jauregui : [id number] MR#: [id number] Case Date: 01/24/2015 Surgeon: Surgeon(s) and Role: * Carley Goodman Jr., MD - Primary * Trini Escalona MD - Resident-Surgeon Julio Preoperative diagnosis: LEFT RENAL STONES Postoperative diagnosis: LEFT RENAL STONES Procedure(s): E.S.W.L. Findings: 1. 8mm Left renal stone seen on stroboroma operator fluoroscopy and ultrasound at beginning of procedure 2. Fragmented well by conclusion of procedure Anesthesia: General Estimated Blood Loss: none Specimens removed during surgery: None Drains: none Surgical Closure: no incision Disposition: awakened from anesthesia, extubated and taken to the recovery room in a stable condition, having suffered no apparent untoward event. Condition: doing well without problems (Please see the Surgical Encounter Summary for any Implant and Specimen details pertinent to this patient.) HPI/Surgical Indications: Jerad Jauregui is a 59 y.o. male with history of nephrolithiasis s/p ESWL in the past. Now with multiple left renal stones for which he has been asymptomatic. Now presents for left renal ESWL. No changes in medical condition since last Urology office visit. Has not taken aspirin or anticoagulation medications for past 10 days. Procedure description: The patient was identified and consented in preoperative holding. He was marked for the procedure. He was taken back to the Operating Room and placed on the operating table in the supine position. The stone was readily visulized on stroboroma operator images and ultrasound. General anesthesia was then administered, and antibiotics given. The stone was then targeted easily using flouroscopy and US guidance, and 2500 shocks were then delivered at a rate of 60 up to 120 Hz to the stone starting at power of 3 and increasing at intervals up to power level of 20. Total fluoroscopy time was 77 s. A pause of 3 minutes was performed after first 200 initial shocks. At the conclusion of the procedure there appearedto be good fragmentation of the stone. The patient was awakened from anesthesia and taken to the recovery area in stable condition. The patient will be seen in clinic in 3-4 weeks with an US and a KUB. Dr. Goodman was present for the entire procedure. * Brief Op Note - Trini Escalona - 01/24/2015 12:08 PM EDT Brief Operative Note Patient Name: Jerad Jauregui : [id number] MR#: [id number] Case Date: 01/24/2015 Surgeon: Surgeon(s) and Role: * Carley Goodman Jr., MD - Primary * Trini Escalona MD - Resident-Surgeon Julio Preoperative diagnosis: LEFT RENAL STONES Postoperative diagnosis: LEFT RENAL STONES Procedure(s): E.S.W.L. Anesthesia: General Findings: 1. 8mm Left renal stone seen on stroboroma operator fluoroscopy and ultrasound at beginning of procedure 2. Fragmented well by conclusion of procedure Complications: none Fluids: 1L Estimated Blood Loss: none Drains: none Disposition: awakened from anesthesia, extubated and taken to the recovery room in a stable condition, having suffered no apparent untoward event. Condition: doing well without problems (Please see the Surgical Encounter Summary for any Implant and Specimen details pertinent to this patient.) Infection Bundle used? N/A Associated attestation - Carley Goodman Jr., MD - 01/24/2015 1:28 PM EDT I was present and I participated during the entire procedure. documented in this encounter Plan of Treatment Upcoming Encounters Date Type Department Care Team (Late st Contact Info) Description 01/25/2025 8:15 AM EDT Office Visit Dermatology at [place] [address] [place] [address] Cortez Bey MD [address], [address] [place] [address] Scheduled Orders Name Type Priority Associated Diagnoses Orde r Schedule XR Abdomen 1 View (GENERIC) Imaging Routine Nephrolithiasis Expected: 02/19/2015 (Approximate), Expires: 01/25/2016 documented as of this encounter Procedures Procedure Name Priority Date/Time Associated Diagnosis Comments Juan (WRVU 9.77) 01/24/2015 11:19 AM EDT LEFT RENAL STONES XR ABDOMEN 1 VIEW Routine 01/24/2015 11: 10 AM EDT UROLOGY SCAN 01/24/2015 12:00 AM EDT documented in this encounter Results * US [...] 03:51 pm) Patient Info ID #: ? [id number] ?: ??[birth year] (59 yrs) Name: ? JERAD JAUREGUI ? Visit Date: 04/15/2015 02:33 pm Performed By Performed By: ? Montse Salinas RDMS Attending: ?Paty CARIAS, Jennifer Wynne. Associate: ?Saida CARIAS, [facility] Referred By: ?CARLEY GOODMAN MD Service(s) Provided ??URETRO - Retroperitoneal Complete - [id number] ? [id number] Indications ??history of nephrolithiasis, s/p left ESWL, [...] 04/15/2015 03:51 pm) Patient Info ID #: [id number] : [birth year] (59 yrs) Name: JERAD JAUREGUI Visit Date: 04/15/2015 02:33 pm Performed By Performed By: Montse Salinas RDMS Attending: Jennifer Newman MD Associate: Linda Cintron MD Referred By: CARLEY GOODMAN MD Service(s) Provided URETRO - Retroperitoneal Complete - [id number] Indications history of nephrolithiasis, s/p left ESWL, [...] Signed Final Report 04/15/2015 03:51 pm Carley Goodman Jr., MD IM US GEN ORDERAB LES * XR Abdomen 1 View (GENERIC) (01/24/2015 [...] degenerative changes of the spine and pelvis. Carley Goodman Jr., MD IMG DX ORDERABLES * SCAN DOC: UROLOGY (01/24/2015 12:00 AM EDT) Scanning Provider MEDIA MGR SCAN EXT O RDR/RSLT documented in this encounter Visit Diagnoses Not on filedocumented in this encounter Administered Medications Inactive Administered Medications - up to 3 most recent administrations Medication Order MAR Action Action Date Dose Rate Site ciprofloxacin (CIPRO) 400mg in dextrose 5% 200mL 400 mg, Intravenous, SOLVENT MIXER TO O.R., 1 dose, On Tue01/24/15 at 1045, Administer over 60 Minutes, Day of Surgery (Day of Procedure), Indication for (Active or Suspected): Prophylaxis, Restricted Antibiotic: Please indicate the most appropriate choice: Pre-approved Indication (State the indication in Comments field) Given 01/24/2015 11:03 AM EDT 400 mg 200 mL/hr lactated ringers infusion 1,000 mL 1,000 mL, at 100 mL/hr, Intravenous, CONTINUOUS, Starting on Tue01/24/15 at 1045, Until Tue01/24/15 at 1337, Day of Surgery (Day of Procedure) New Bag 01/24/2015 12:01 PM EDT New Bag 01/24/2015 10:39 AM EDT 1,000 mLs 100 mL/hr documented in this encounter Active and Recently Administered Medications Times are shown in EDT. Scheduled Medication Order 01/22/2015 01/23/2015 01/24/2015 ciprofloxacin (CIPRO) 400mg in dextrose 5% 200mL (CANCELED) 400 mg, Intravenous, SOLVENT MIXER TO O.R., 1 dose, On Tue01/24/15 at 1045, Administer over 60 Minutes, Day of Surgery (Day of Procedure), Indication for (Active or Suspected): Prophylaxis, Restricted Antibiotic: Please indicate the most appropriate choice: Pre-approved Indication (State the indication in Comments field) 1103 (Given - Provid er: Suni Hawkins RN) Continuous Medication Order 01/22/2015 01/23/2015 01/24/2015 lactated ringers infusion 1,000 mL (CANCELED) 1,000 mL, at 100 mL/hr, Intravenous, CONTINUOUS, Starting on Tue01/24/15 at 1045, Until Tue01/24/15 at 1337, Day of Surgery (Day of Procedure) 1039 (New Bag - Prov ider: Suni Hawkins RN)1145 (Anesthesia Volume Adjustment - Provider: Ruba Rubio CRNA)1201 (New Bag - Provider: Ruba Rubio CRNA) PRN Medication Order 01/22/2015 01/23/2015 01/24/2015 acetaminophen (TYLENOL) tablet 650 mg 650 mg, Oral, EVERY 4 HOURS PRN, Starting on Tue01/24/15 at 1135, Until Tue01/24/15 at 1614, Pain, Maximum dose of acetaminophen is 4000 mg from all sources in 24 hours., Routine oxyCODONE (ROXICODONE) immediate release tablet 5 mg 5 mg, Oral, EVERY 4 HOURS PRN, Starting on Tue01/24/15 at 1135, Until Tue01/24/15 at 1614, Pain, Routine No Frequency Medication Order 01/22/2015 01/23/2015 01/24/2015 ceFAZolin (ANCEF) 2 gram/50 mL infusion (COMPLETED) 1 dose, Starting on Tue01/24/15 at 1104, Until Tue01/24/15 at 1130, SUNI REYES: cabinet override 1130 (Given - Provid er: Ruba Rubio CRNA) documented in this encounter Care Teams Ruby Developer Relationship Specialty Start Date End Date Froy Monroe MD [address] [place] [address] PCP - General 02/17/10 10/26/16 documented as of this encounter
--- OUTSIDE RECORDS SUMMARY | 2024-01-23 15:49 | XMS_ITS | Encounter Summary ---
Author Organization [facility] Address [facility] [place] [address] Care Team Providers Care Animal Behaviourist Name Role Phone Froy Monroe MD Primary Care Provider + Reason for Visit * Reason Comments Nephrolithiasis Encounter Details Date Type Department Care Team (Late st Contact Info) Description 08/06/2014 2:40 PM EDT [place] [address] Carley Crockett Jr., MD [facility] [place] [address] Lower urinary tract symptoms (LUTS); Nephrolithiasis Discharge Disposition: Home Social History Tobacco Use Types Packs/Day Years Used Date Smoking Tobacco: Never Sex and Gender Information Value Date Recorded Sex Assigned at Not on file Gender Identity Not on file Sexual Orientation Not on file documented as of this encounter Last Filed Vital Signs Vital Sign Reading Time Taken Comments Blood Pressure 115/66 08/06/2014 2:16 PM EDT Pulse 75 08/06/2014 2:16 PM EDT Temperature 36.8 ??C (98.3 ??F) 08/06/2014 2:16 PM ED T Respiratory Rate 18 08/06/2014 2:16 PM EDT Oxygen Saturation 96% 08/06/2014 2:16 PM EDT Inhaled Oxygen Concentration - - Weight 83.9 kg (185 lb) 08/06/2014 2:16 PM EDT Height 185.4 cm (6' 1) 08/06/2014 2:16 PM EDT Body Mass Index 24.41 08/06/2014 2:16 PM EDT documented in this encounter Progress Notes * Carley Crockett Jr., MD - 08/06/2014 3:07 PM EDT HPI: Jerad Jauregui is a 58 y.o. man who presents for urologic consultation regarding urolithiasis and enlarged prostate. He has long history of enlarged prostate, managed with flomax x 15 years (Dr Valadez). He had an elevated PSA and had biopsy (10/2008) that was reportedly negative. He had a follow up biopsy for prostate asymmetry (01/06) that was also negative. He subsequently saw Dr Linda in 2012 for bilateral nephrolithiasis. He underwent bilateral SWL in 07/2013. He had residual left renal stones. In the interval since his last visit with Dr Linda in 2013, he has been well. He denies any flank or abdominal pain, hematuria, or stone passage. He denies any bothersome LUTS, notes nocturia x1-2 which poses minimal bother. Review of Systems Eyes: Positive for visual disturbance. Hematologic/Lymphatic: Does not bruise/bleed easily. Musculoskeletal: Positive for back pain. Gastrointestinal: Positive for bloating (occ'l). Negative for abdominal pain. Genitourinary: Negative for flank pain and hematuria. Nocturia: 1-2x. All other systems reviewed and are negative. PMHx: BPH; nephrolithiasis; glaucoma PSHx: tonsillectomy; [...] is no rebound and no guarding. Genitourinary: No CVA tenderness to percussion bilaterally He declined KIRK today Neurological: He is alert and oriented to person, place, and time. Skin: He is not diaphoretic. Psychiatric: He has a normal mood and affect. His behavior is normal. Vitals reviewed. Imaging Studies: I independently reviewed the KUB from [facility] dated 12/2013. This reveals a collection of several small renal stone fragments overlying lower/mid left kidney. Impression/Plan: 1) left renal stones -- suspect residual fragments s/p SWL, asymptomatic. We reviewed at length management options, including watchful waiting, shock wave lithotripsy, ureteroscopy, and percutaneous nephrolithotomy. We additionally discussed the relative risks, benefits, stone-free success rate, and limitations of each. For now he declines surgical intervention and is content to monitor. We will thus plan follow up in 4-6 months with renal ultrasound and KUB, sooner prn. He has been instructed to call or return in the interval if new signs or symptoms of stone passage/renal colic should develop. 2)LUTS. Minimal bother. We reviewed mgmt options. He wishes to continue with current course of tamsulosin and proscar. 3)Prostate cancer screening. We reviewed current controversies surrounding prostate cancer screening. He had decided previously with Dr Valadez and Dr Linda to hold off on further screening. He will discuss further with his PCP as well if he wishes to have PSA + KIRK screening. documented in this encounter Plan of Treatment Upcoming Encounters Date Type Department Care Team (Late st Contact Info) Description 01/25/2025 8:15 AM EDT Office Visit Dermatology at [place] [address] [facility] [place] [phone] Cortez Bey MD [address], [place] [address] documented as of this encounter Results * XR abdomen 1 [...] calculi project over the right renal fossa. Carley Crockett Jr., MD IMG DX ORDERABLES * US retroperitoneal complete (12/24/2014 2:06 PM EDT) Anatomical Region Laterality Modality Abdomen Ultrasound 12/24/2014 2:06 PM EDT Narrative 12/24/2014 2:15 PM EDT Renal ?(Signed Final 12/24/2014 02:14 pm) Patient Info ID #: ? [id number] ?: ??[birth year] (59 yrs) Name: ? JERAD JAUREGUI ? Visit Date: 12/24/2014 02:04 pm Performed By Performed By: ? Astrid Tapia RDMS Attending: ?Alvin CARIAS, Faye J. Referred By: ?CARLEY CROCKETT MD Service(s) Provided ??URETRO - Retroperitoneal Complete - [id number] ? [id number] Indications ??? stones Right Kidney Size (cm) ?L: ??10.9 Cortical Thickness: ?Normal Cortical Echogenicity: ?? Normal Hydronephrosis: ?No sonographic evidence Comment: ?No definite renal calculi. Left Kidney Size (cm) ?L: ??11.9 Cortical Thickness: ?Normal Cortical Echogenicity: ?? Normal Hydronephrosis: ?No sonographic evidence Comment: ?Obstructing renal calculi seen, measuring 25 mm. ? Calyx distally is dilated. Urinary Bladder Pre-void (cm) ? L: ??5.0 ? AP: ??5.1 ? TV: ??8.1 Vol (ml): ?108.1 Comment: ?Partially distended, normal contour. ??No bladder ? calculi Impression Ultrasound - ??Retroperitoneal Complete - Summary 1. Dominant 2.5 cm central Left renal stone , with dilated calyx. 2. Renal cortex is preserved. 3. ??right kidney is normal without hydronephrosis. 4. ??Bladder contour is smooth. ?? no bladder calculi. I ??viewed the images and agree with the above interpretation. ?Faye Esquivel MD Electronically Signed Final Report ?? 12/24/2014 02:14 pm Procedure Note Faye Esquivel MD - 12/24/2014 Renal (Signed Final 12/24/2014 02:14 pm) Patient Info ID #: [id number] : [birth year] (59 yrs) Name: JERAD JAUREGUI Visit Date: 12/24/2014 02:04 pm Performed By Performed By: Astrid Tapia RDMS Attending: Faye Esquivel MD Referred By: CARLEY CROCKETT MD Service(s) Provided URETRO - Retroperitoneal Complete - [id number] Indications ? stones Right Kidney Size (cm) L: 10.9 Cortical Thickness: Normal Cortical Echogenicity: Normal Hydronephrosis: No sonographic evidence Comment: No definite renal calculi. Left Kidney Size (cm) L: 11.9 Cortical Thickness: Normal Cortical Echogenicity: Normal Hydronephrosis: No sonographic evidence Comment: Obstructing renal calculi seen, measuring 25 mm. Calyx distally is dilated. Urinary Bladder Pre-void (cm) L: 5.0 AP: 5.1 TV: 8.1 Vol (ml): 108.1 Comment: Partially distended, normal contour. No bladder calculi Impression Ultrasound - Retroperitoneal Complete - Summary 1. Dominant 2.5 cm central Left renal stone , with dilated calyx. 2. Renal cortex is preserved. 3. right kidney is normal without hydronephrosis. 4. Bladder contour is smooth. no bladder calculi. I viewed the images and agree with the above interpretation. Faye Esquivel MD Electronically Signed Final Report 12/24/2014 02:14 pm Carley Crockett Jr., MD IMG US GEN ORDERAB LES documented in this encounter Visit Diagnoses Diagnosis Lower urinary tract symptoms (LUTS) Other symptoms involving urinary system Nephrolithiasis Calculus of kidney Nephrolithiasis Calculus of kidney Nephrolithiasis Calculus of kidney documented in this encounter Care Teams Animal Behaviourist Relationship Specialty Start Date End Date Froy Monroe MD [address] [place] [address] PCP - General 02/17/10 10/26/16 documented as of this encounter
--- OUTSIDE RECORDS SUMMARY | 2024-01-23 15:49 | XMS_ITS | Encounter Summary ---
Author Organization [facility] Address [facility] [place] [address] Care Team Providers Care Tourist Information Officer Name Role Phone Froy Monroe MD Primary Care Provider + Encounter Details Date Type Department Care Team (Late st Contact Info) Description 01/16/2014 [place] [address] Shantanu Goodman Jr., MD [facility] [place] [address] Social History Tobacco Use Types Packs/Day Years Used Date Smoking Tobacco: Never Sex and Gender Information Value Date Recorded Sex Assigned at Not on file Gender Identity Not on file Sexual Orientation Not on file documented as of this encounter Plan of Treatment Upcoming Encounters Date Type Department Care Team (Late st Contact Info) Description 01/25/2025 8:15 AM EDT Office Visit Dermatology at [place] [address] [place] [phone] Cortez Bey MD [address] [facility], [place] [address] documented as of this encounter Procedures Procedure Name Priority Date/Time Associated Diagnosis Comments FILM LIBRARY STORAGE ONLY DX ABDOMEN Routine 01/16/2014 9:28 AM EDT documented in this encounter Results * Film Library- Storage only DX Abdomen (01/16/2014 9:28 AM EDT) Anatomical Region Laterality Modality Other 01/16/2014 9:28 AM EDT Narrative 06/12/2014 9:33 AM EDT This is a Non-reportable exam Procedure Note MARIANNE, UNSIGNED REPORT - 06/12/2014 This is a Non-reportable exam Shantanu Goodman Jr., MD IM FILM LIBRARY O RDERABLES documented in this encounter Visit Diagnoses Not on filedocumented in this encounter Care Teams Tourist Information Officer Relationship Specialty Start Date End Date Froy Monroe MD [address] [facility] [address] [address] PCP - General 02/17/10 10/26/16 documented as of this encounter
--- OUTSIDE RECORDS SUMMARY | 2024-01-23 15:49 | XMS_ITS | Encounter Summary ---
Author Organization [facility] [place] [address] Care Team Providers Care Test Car Driver Name Role Phone Froy Monroe MD Primary Care Provider + Encounter Details Date Type Department Care Team (Latest Contact Info) Description 12/24/2014 1:21 PM EDT - 12/24/2014 2:13 PM EDT Hospital En[place] [address] Nephrolithiasis Social History Tobacco Use Types Packs/Day [...] 8:15 AM EDT Office Visit Dermatology at [place] [address] [facility] [place] [phone] Cortez Bey MD [address], [place] [address] documented as of this encounter Procedures Procedure Name Priority Date/Time Associated Diagnosis Comments US RETROPERITONEAL COMPLETE Routine 12/24/2014 2:06 PM EDT Nephrolithiasis documented in this encounter Results * US retroperitoneal complete (12/24/2014 2:06 PM EDT) Anatomical Region Laterality Modality Abdomen Ultrasound 12/24/2014 2:06 PM EDT Narrative 12/24/2014 2:15 PM EDT Renal ?(Signed Final 12/24/2014 02:14 pm) Patient Info ID #: ? [id number] ?: ??[birth year] (59 yrs) Name: ? JERAD JAUREGUI ? Visit Date: 12/24/2014 02:04 pm Performed By Performed By: ? Astrid Tapia RDMS Attending: ?Alvin CARIAS, Faye Alvarez Referred By: ?CARLEY GOODMAN MD Service(s) Provided ??URETRO - Retroperitoneal Complete - [id number] ? [id number] Indications ??? stones Right Kidney Size (cm) [...] 12/24/2014 02:14 pm) Patient Info ID #: [id number] : [birth year] (59 yrs) Name: JERAD JAUREGUI Visit Date: 12/24/2014 02:04 pm Performed By Performed By: Astrid Tapia RDMS Attending: Faye Esquivel MD Referred By: CARLEY GOODMAN MD Service(s) Provided URETRO - Retroperitoneal Complete - [id number] Indications ? stones Right Kidney Size (cm) [...] Signed Final Report 12/24/2014 02:14 pm Carley Goodman Jr., MD IMG US GEN ORDERAB LES documented in this encounter Visit Diagnoses Diagnosis Nephrolithiasis Calculus of kidney documented in this encounter Care Teams Test Car Driver Relationship Specialty Start Date End Date Froy Monroe MD [address] [place] [address] PCP - General 02/17/10 10/26/16 documented as of this encounter
--- OUTSIDE RECORDS SUMMARY | 2024-01-23 15:49 | XMS_ITS | Encounter Summary ---
[place] [address] Care Team Providers Care Window And Door Installer Name Role Phone Froy Monroe MD Primary Care Provider + Encounter Details Date Type Department Care Team (Late st Contact Info) Description 12/31/2014 4:15 PM EDT Office Visit Dermatology at [address] [phone] Cortez Bey MD [address] [facility], [facility] [place] [address] [place] (actinic keratosis); Basal cell carcinoma Social History Tobacco Use Types Packs/Day Years Used Date Smoking Tobacco: Never Sex and Gender Information Value Date Recorded Sex Assigned at Not on file Gender Identity Not on file Sexual Orientation Not on file documented as of this encounter Progress Notes * Cortez Bey MD - 12/31/2014 4:08 PM EDT Problems: 1. History of BCCA, left distal arm, excised November 2013. 2. Repeat yearly skin checkup. Jerad follows up for a repeat skin checkup. He has been doing well. He has noted a somewhat hyperkeratotic papule on the left nasal alar rim, but otherwise really nothing of concern. He has not seen any recurrence or any activity at the site of the BCCA excision. Physical examination shows a well-healed scar without evidence of recurrent BCCA on the left distal arm. Examination of the nose reveals a single actinic keratosis on the left mid nasal alar rim. Examination of the head and neck, chest, back, hands, arms, forearms, thighs, and calves is otherwise unremarkable. He has a number of seborrheic keratoses and stucco keratoses on cutaneous examination today. Assessment and Plan: Benign skin examination. a. Patient reassured about benign skin examination. b. I recommended that I see him again in one more year for repeat check. c. Then if doing well, I will likely just have him follow up on a p.r.n. basis. This is because of his history of BCCA. d. Continue sun avoidance precautions. [id number] reminder in one year. 2. Actinic keratosis, left nasal alar rim. a. LN2 x 2 applied to site. COPY: Froy Monroe M.D. documented in this encounter Plan of Treatment Upcoming Encounters Date Type Department Care Team (Late st Contact Info) Description 01/25/2025 8:15 AM EDT Office Visit Dermatology at [place] [address] [place] [phone] Cortez Bey MD [address] [facility], [facility] [place] [address] documented as of this encounter Visit Diagnoses Diagnosis [place] (actinic keratosis) Actinic keratosis Basal cell carcinoma Basal cell carcinoma of skin, site unspecified documented in this encounter Care Teams Window And Door Installer Relationship Specialty Start Date End Date Froy Monroe MD [address] [facility] [place] [address] PCP - General 02/17/10 10/26/16 documented as of this encounter
--- OUTSIDE RECORDS SUMMARY | 2024-01-23 15:49 | XMS_ITS | Clinical Summary ---
Author Organization [facility] Address [address] [place] [address] Care Team Providers Care Worker'S Compensation Claims Examiner Name Role Phone Froy Monroe MD Primary Care Provider U navailable Allergies Active Allergy Reactions Criticality Noted Date Comments Codeine Shortness Of Breath 01/23/2013 Medications Medication Sig Dispensed Refills Start Date End Date Status tamsulosin (FLOMAX) 0.4 mg capsule Take 0.4 mg by mouth at bedtime. Active finasteride (PROSCAR) 5 mg tablet Take 5 mg by mouth at bedtime. Active Multivitamins with Minerals tablet Take 1 Tab by mouth daily. Active vitamin b-12 (CYANOCOBALAMIN) 50 mcg tablet Take 50 mcg by mouth daily. Active lutein 6 mg tablet Take 1 Tab by mouth daily. 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 Overview: ICD10 Update Auto Replacement Immunizations Name Administration Dates Next Due Influenza Vaccine =>3yo Split IM 01/07/2013 Social History Tobacco Use Types Packs/Day Years Used Date Smoking Tobacco: Never Assessed Sex and Gender Information Value Date Recorded Sex Assigned at Not on file Gender Identity Not on file Sexual Orientation Not on file Last Filed Vital Signs Vital Sign Reading Time Taken Comments Blood Pressure 118/62 10/09/2013 1138 EDT Pulse - - Temperature 36.4 ??C (97.5 ??F) 10/09/2013 1138 EDT Respiratory Rate 18 10/09/2013 1138 EDT Oxygen Saturation 99% 10/09/2013 1138 EDT Inhaled Oxygen Concentration - - Weight 81.6 kg (180 lb) 10/07/2013 1504 EDT Height 185.4 cm (6' 1) 10/07/2013 1504 EDT Body Mass Index 23.75 10/07/2013 1504 EDT Plan of Treatment Health Maintenance Due Date Last Done Comments Hepatitis C Screen 1955 RSV Immunization ( o r 60+ Years) (1 - 1-dose 60+ series) 2013 Fall Risk Screening 2018 COVID-19 Vaccine ( season) 2022 Advance Directives For more information, please contact: [phone] Documents on File Type Date Recorded Patient Hand Shaker Expl anation Advance Directive 05/05/2010 22:58 AD * Full Code (Latest Code Status on File) Date Activated Date Inactivated Comments 10/09/2013 7:41 10/09/2013 13:49 * Full Code Date Activated Date Inactivated Comments 03/06/2013 10:49 03/06/2013 16:55 * Full Code Date Activated Date Inactivated Comments 01/30/2013 7:59 01/30/2013 15:07 Care Teams Worker'S Compensation Claims Examiner Relationship Specialty Start Date End Date Froy Monroe MD PCP - General 12/11/12
--- OUTSIDE RECORDS SUMMARY | 2024-01-23 15:49 | XMS_ITS | Encounter Summary ---
[place] [address] Care Team Providers Care Regulatory Process Manager Name Role Phone Froy Monroe MD Primary Care Provider + Reason for Visit * Reason Comments Suture / Staple Removal Encounter Details Date Type Department Care Team (Late st Contact Info) Description 12/27/2013 10:15 AM EDT Office Visit Dermatology at [place] [address] [place] [phone] Cortez Bey MD [address] [facility], [facility] [place] [address] Visit for suture removal (Primary Dx) Discharge Disposition: Home Social History Tobacco Use Types Packs/Day Years Used Date Smoking Tobacco: Never Sex and Gender Information Value Date Recorded Sex Assigned at Not on file Gender Identity Not on file Sexual Orientation Not on file documented as of this encounter Progress Notes * Cortez Bey MD - 12/27/2013 10:22 AM EDT Problem: Followup suture removal and biopsy results. Jerad follows up and the excision from the left distal arm at the punch biopsy-proven BCCA site, with recurrence, did show residual basal cell carcinoma, this time margins clear with the excision. Physical examination shows good healing of this site. Assessment and Plan: Residual basal cell carcinoma, margins clear, left distal arm above elbow. a. Sutures removed. b. May DC wound care instructions. c. Patient did well postoperatively, no bleeding, discomfort, or other issues. Recommend that I see him again in another year for repeat check. Return reminder one year. COPY: Froy Monroe M.D. documented in this encounter Plan of Treatment Upcoming Encounters Date Type Department Care Team (Late st Contact Info) Description 01/25/2025 8:15 AM EDT Office Visit Dermatology at [place] [address] [facility] [place] [address] Cortez Bey MD [address], [place] [address] documented as of this encounter Visit Diagnoses Diagnosis Visit for suture removal- Primary Encounter for removal of sutures documented in this encounter Care Teams Regulatory Process Manager Relationship Specialty Start Date End Date Froy Monroe MD [address] [place] [address] PCP - General 02/17/10 10/26/16 documented as of this encounter
--- OUTSIDE RECORDS SUMMARY | 2024-01-23 15:49 | XMS_ITS | Encounter Summary ---
Author Organization [facility] Address [facility] [place] [address] Care Team Providers Care Skin Care Therapist Name Role Phone Froy Monroe MD Primary Care Provider + Encounter Details Date Type Department Care Team (Late st Contact Info) Description 09/11/2013 Orders [place] [address] Shantanu Goodman Jr., MD [facility] [place] [address] Social History Tobacco Use Types Packs/Day Years Used Date Smoking Tobacco: Never Sex and Gender Information Value Date Recorded Sex Assigned at Not on file Gender Identity Not on file Sexual Orientation Not on file documented as of this encounter Plan of Treatment Upcoming Encounters Date Type Department Care Team (Late st Contact Info) Description 01/25/2025 8:15 AM EDT Office Visit Dermatology at [place] [address] [facility] [place] [address] Cortez Bey MD [address] [facility], [place] [address] documented as of this encounter Procedures Procedure Name Priority Date/Time Associated Diagnosis Comments FILM LIBRARY STORAGE ONLY DX ABDOMEN Routine 09/11/2013 9:30 AM EDT documented in this encounter Results * Film Library- Storage only DX Abdomen (09/11/2013 9:30 AM EDT) Anatomical Region Laterality Modality Other 09/11/2013 9:30 AM EDT Narrative 06/12/2014 9:35 AM EDT This is a Non-reportable exam Procedure Note MARIANNE, UNSIGNED REPORT - 06/12/2014 This is a Non-reportable exam Shantanu Goodman Jr., MD IM FILM LIBRARY O RDERABLES documented in this encounter Visit Diagnoses Not on filedocumented in this encounter Care Teams Skin Care Therapist Relationship Specialty Start Date End Date Froy Monroe MD [address] [place] [address] PCP - General 02/17/10 10/26/16 documented as of this encounter
--- OUTSIDE RECORDS SUMMARY | 2024-01-23 15:49 | XMS_ITS | Encounter Summary ---
Author Organization [facility] Address [address] [place] [address] Care Team Providers Care Director Speech Language Name Role Phone Unavailable Primary Care Provider Unavailabl e Encounter Details Date Type Department Care Team (Latest Contact Info) Description 03/15/2007 11:05 EST - 03/15/2007 11:59 EST Hospital Encounter [facility] Perioperative Services - [address] [address] [address] Palomo MD Discharge Disposition: Home or Self Care Social History Tobacco Use Types Packs/Day Years Used Date Smoking Tobacco: Never Assessed Sex and Gender Information Value Date Recorded Sex Assigned at Not on file Gender Identity Not on file Sexual Orientation Not on file documented as of this encounter Discharge Disposition Disposition Code Departure Means Destination Home or Self Care documented in this encounter Plan of Treatment Not on file documented as of this encounter Visit Diagnoses Not on filedocumented in this encounter
--- OUTSIDE RECORDS SUMMARY | 2024-01-23 15:49 | XMS_ITS | Encounter Summary ---
Author Organization [facility] Address [address] [place] [address] Care Team Providers Care Geochemical Manager Name Role Phone Froy Monroe MD Primary Care Provider U navailable Encounter Details Date Type Department Care Team (Late st Contact Info) Description 10/05/2023 Lab Requisition [facility] Pathology & Laboratory Medicine - [address] [address] Outr Resulting Lab, Provider Social History Tobacco Use Types Packs/Day Years Used Date Smoking Tobacco: Never Assessed Sex and Gender Information Value Date Recorded Sex Assigned at Not on file Gender Identity Not on file Sexual Orientation Not on file documented as of this encounter Plan of Treatment Not on file documented as of this encounter Procedures Procedure Name Priority Date/Time Associated Diagnosis Comments PSA TOTAL, DIAGNOSTIC Routine 10/05/2023 8:35 EDT documented in this encounter Results * PSA TOTAL, DIAGNOSTIC (10/05/2023 8:35 EDT) PSA 0.8 <=4.5 ng/mL 2023 8:33 EDT [facility] Blood VENOUS BLOOD / Unknown 10/05/2023 8:35 EDT 10/05/2023 21:59 EDT Narrative [facility] - 2023 8:33 EDT NOTE: Serum PSA concentration should not be interpreted as absolute evidence for the presence or absence of malignant disease. Assayed on Siemens ADVIA Dexrex Gearaur XPT using chemiluminescent technology.??Values obtained by using different assay methods cannot be used interchangeably. Provider Outr Resulting Lab CHEMISTRY & BLOOD GAS ORDERABLES [facility] [address] [place] [address] documented in this encounter Visit Diagnoses Not on filedocumented in this encounter Care Teams Geochemical Manager Relationship Specialty Start Date End Date Froy Monroe MD PCP - General 12/11/12 documented as of this encounter
--- OUTSIDE RECORDS SUMMARY | 2024-01-23 15:49 | XMS_ITS | Encounter Summary ---
Author Organization [facility] Address [address] [place] [address] Care Team Providers Care Catering Attendant Name Role Phone Froy Monroe MD Primary Care Provider U navailable Encounter Details Date Type Department Care Team (Late st Contact Info) Description 01/18/2012 Historical Results Only [facility] [place] [address] [address] Ankit Valadez MD Social History Tobacco Use Types Packs/Day Years Used Date Smoking Tobacco: Never Assessed Sex and Gender Information Value Date Recorded Sex Assigned at Not on file Gender Identity Not on file Sexual Orientation Not on file documented as of this encounter Plan of Treatment Not on file documented as of this encounter Procedures Procedure Name Priority Date/Time Associated Diagnosis Comments SURGICAL PATHOLOGY Routine 01/18/2012 documented in this encounter Results * SURGICAL PATHOLOGY (01/18/2012) 01/18/2012 01/18/2012 11: 54 EDT Narrative [facility] - 01/21/2012 11:36 EDT PREOP PROSTATE NODULE Procedure: PROSTATE BIOPSY Tissue Removed PROSTATIC TISSUE Clinical Hx: PSA 0.76 12/16/11 ----- ------- Name: JERAD JAUREGUI ? : 51 ?Age/Sex: 63/M ?Unit#: [id number] ? Loc: [facility] ? Status: REG POV ?? Reg Date: 01/18/12 ? Pt.Phone Number: ? ----- ------- Specimen: [id number] ? STATUS: SOUT ?Spec Date:01/18/12 ? Physician Copies: ?Ankit Valadez ? Tissues: A ?? Male Reproductive System (PROSTATE,RIGHT LAT APEX) ? B ?? Male Reproductive System (PROSTATE,RIGHT LAT MID) ? C ?? Male Reproductive System (PROSTATE,RIGHT LAT BASE) ? D ?? Male Reproductive System (PROSTATE,RIGHT APEX) ? E ?? Male Reproductive System (PROSTATE,RIGHT MID) ? F ?? Male Reproductive System (PROSTATE,RIGHT BASE) ? G ?? Male Reproductive System (PROSTATE,LEFT APEX) ? H ?? Male Reproductive System (PROSTATE,LEFT MID) ? I ?? Male Reproductive System (PROSTATE,LEFT BASE) ? J ?? Male Reproductive System (PROSTATE,LEFT LAT APEX) ? K ?? Male Reproductive System (PROSTATE,LEFT LAT MID) ? L ?? Male Reproductive System (PROSTATE,LEFT LAT BASE) ? CPT: 90083 ?? Units: 12 ?FINAL DIAGNOSIS ? A. ??Prostate, right lateral apex, core needle biopsy; ? - Benign prostatic tissue. ? B. ??Prostate, right lateral mid, core needle biopsy; ? - Benign prostatic tissue. ? C. ??Prostate, right lateral base, core needle biopsy; ? - Benign prostatic tissue. ? D. ??Prostate, right apex, core needle biopsy; ? - Benign prostatic tissue. ? E. ??Prostate, right mid, core needle biopsy; ? - Benign prostatic tissue. ? F. ??Prostate, right base, core needle biopsy; ? - Benign prostatic tissue. ? G. ??Prostate, left apex, core needle biopsy; ? - Benign prostatic tissue. ? H. ??Prostate, left mid, core needle biopsy; ? - Benign prostatic tissue. ? I. ??Prostate, left base, core needle biopsy; ? - Benign prostatic tissue. ? J. ??Prostate, left lateral apex, core needle biopsy; ? - Benign prostatic tissue. ? K. ??Prostate, left lateral mid, core needle biopsy; ? - Benign prostatic tissue. ? L. ??Prostate, left lateral base, core needle biopsy; ? - Benign prostatic tissue. ----- ------- Patient: JUVENTINOJERAD E ? #[id number] ? (Continued) ----- ------- Specimen: [id number] ? Received: 01/18/12 ?(Continued) ----- ------- ?COMMENT ? Benign findings include focal acute and chronic inflammation, basal cell hyperplasia, and corpora amylacea. ??No malignancy identified. ? GROSS DESCRIPTION ? A. Received in [facility] labeled with the patient's name and right lateral apex ? is a filamentous tissue core measuring 1.3 cm long, e.s. ? B. ??Received in [facility] labeled with the patient's name and right lateral mid ? is a filamentous tissue core measuring 1 cm long, e.s. ? C. ??Received in [facility] labeled with the patient's name and right lateral ? base is a filamentous tissue core measuring 1.5 cm long, e.s. ? D. ??Received in [facility] labeled with the patient's name and right apex is a ? filamentous tissue core measuring 1.7 cm long, e.s. ? E. ??Received in [facility] labeled with the patient's name and right mid is a ? filamentous tissue core measuring 1.5 cm long, e.s. ? F. ??Received in [facility] labeled with the patient's name and right base is a ? filamentous tissue core measuring 1.3 cm long, e.s. ? G. ??Received in [facility] labeled with the patient's name and left apex is a ? filamentous tissue core measuring 1.5 cm long, e.s. ? H. ??Received in [facility] labeled with the patient's name and left mid is a ? filamentous tissue core measuring 1.5 cm long, e.s. ? I. ??Received in [facility] labeled with the patient's name and left base is a ? filamentous tissue core measuring 1.7 cm long, e.s. ? J. ??Received in [facility] labeled with the patient's name and left lateral apex ? is a filamentous tissue core measuring 1.3 cm long, e.s. ? K. ??Received in [facility] labeled with the patient's name and left lateral mid ? is a filamentous tissue core measuring 1.3 cm long, e.s. ? L. ??Received in [facility] labeled with the patient's name and left lateral base ? is a filamentous tissue core measuring 1.6 cm long, e.s. ??CP ?? PREOP DX/CLINICAL HISTORY ?Prostate nodule. Signed ____(signature on file)____ Lynne Pimentel M.D. 01/21/12 By the signature above, the attending physician certifies that he/she has personally conducted a gross and/or microscopic examination of the described specimens and rendered or confirmed the above diagnosis. Test Performed by [facility], [address] [place] [address] Tile Molder: Lynne Pimentel MD PHD ----- ------- Ankit Valadez MD PATHOLOGY ORDERABLES Performing Organization Address City/State/[facility] Co de Phone Number [facility] documented in this encounter Visit Diagnoses Not on filedocumented in this encounter Care Teams Catering Attendant Relationship Specialty Start Date End Date Froy Monroe MD PCP - General 12/11/12 documented as of this encounter
--- OUTSIDE RECORDS SUMMARY | 2024-01-23 15:49 | XMS_ITS | Encounter Summary ---
Author Organization [place] [address] Care Team Providers Care Radiologic Technology Instructor Name Role Phone Froy Monroe MD Primary Care Provider + Reason for Visit * Reason Comments Suture / Staple Removal Encounter Details Date Type Department Care Team (Late st Contact Info) Description 07/25/2012 2:45 PM EDT Office Visit Dermatology [address] [place] [address] [address] [place] [address] Cortez Bey MD [address] [facility] [place] [address] Basal cell carcinoma (Primary Dx) Social History Tobacco Use Types Packs/Day Years Used Date Smoking Tobacco: Never Sex and Gender Information Value Date Recorded Sex Assigned at Not on file Gender Identity Not on file Sexual Orientation Not on file documented as of this encounter Progress Notes * Cortez Bey MD - 07/25/2012 3:13 PM EDT Problem is followup for biopsy results. Jerad follows up and the biopsy actually came back showing basal cell carcinoma. The punch biopsy did show that the margins appeared to be clear. There was a basal cell carcinoma but it appears to be entirely removed with the 5-mm punch biopsy. Physical examination shows good healing of the site. Assessment and Plan: 1. BCCA, left distal forearm. 1a. Discussed biopsy results with patient. 1b. Patient reassured by the excellent prognosis. 1c. Would not recommend re-excision but would like to see him back in another year for repeat check of this. 1d. Continue sun avoidance precautions. Return to Clinic reminder one year. CC: Froy Monroe M.D. documented in this encounter Plan of Treatment Upcoming Encounters Date Type Department Care Team (Late st Contact Info) Description 01/25/2025 8:15 AM EDT Office Visit Dermatology at [place] [address] [place] [address] Cortez Bey MD [address] [facility] [place] [address] documented as of this encounter Visit Diagnoses Diagnosis Basal cell carcinoma- Primary Basal cell carcinoma of skin, site unspecified documented in this encounter Care Teams Radiologic Technology Instructor Relationship Specialty Start Date End Date Froy Monroe MD [address] [place] [address] PCP - General 02/17/10 10/26/16 documented as of this encounter
--- OUTSIDE RECORDS SUMMARY | 2024-01-23 15:49 | XMS_ITS | Encounter Summary ---
Author Organization [facility] [place] [address] Care Team Providers Care Bait Tier Name Role Phone Froy Monroe MD Primary Care Provider + Reason for Referral * Diagnostic Test (Routine) - Closed Specialty Diagnoses / Procedures Referred By Jeannie barker Referred To Contact Radiology Diagnoses Nephrolithiasis Procedures CT Abdomen & Pelvis Wo Contrast Shantanu Goodman Jr., MD [facility] [place] [place] [address] [facility] [place] [address] Referral ID Status Reason Start Date Expiration Date V isits Requested Visits Authorized [id number] Closed Specialty Service Requested 03/10/2016 05/08/2016 1 1 Reason for Visit * Reason Comments Nephrolithiasis Encounter Details Date Type Department Care Team (Late st Contact Info) Description 09/01/2015 3:20 PM EDT [place] [address] Shantanu Goodman Jr., MD [facility] [place] [address] Nephrolithiasis Social History Tobacco Use [...] Sign Reading Time Taken Comments Blood Pressure 107/63 09/01/2015 3:42 PM EDT Pulse 73 09/01/2015 3:42 PM EDT Temperature - - Respiratory Rate - - Oxygen Saturation - - Inhaled Oxygen Concentration - - Weight 83.9 kg (185 lb) 09/01/2015 3:42 PM EDT Height 185.4 cm (6' 1) 09/01/2015 3:42 PM EDT Body Mass Index 24.41 09/01/2015 3:42 PM EDT documented in this encounter Progress Notes * Shantanu Goodman Jr., MD - 09/01/2015 4:15 PM EDT HPI: Jerad Jauregui is a 59 y.o. man who returns for urologic follow up regarding bilateral nephrolithiasis and an enlarged prostate. He underwent left renal SWL 01/24/15. Postoperatively, he remained comfortable but passed only minimal amounts of stone. He has a long history of recognized enlarged [...] medical management with flomax and finasteride. He subsequently saw Dr Linda in 2012 for bilateral nephrolithiasis. He underwent bilateral SWL in 07/2013. He had residual left renal stones. U/S 11/2014 suggested large left renal pelvic stone although f/u CT revealed this to actually be 2 adjacent stones, each approximately 8mm. We had reviewed mgmt options and he elected to proceed with left renal SWL In the interval since his last visit of 03/2015, he has been comfortable, denies any abdominal or flank pain, additional stone passage, or new complaints. Review of Systems Musculoskeletal: Negative for back pain. Gastrointestinal: Negative for abdominal pain. Genitourinary: Negative [...] reviewed. Imaging Studies: I independently reviewed the renal u/s from today, with previously noted 2.5cm left renal pelvic stone (Overestimated when compared with CT) now measured at approx 1.7cm, per report stable. There is no evidence of hydronephrosis. Impression/Plan: 1) Left renal stone(s) -- We again discussed that residual stone after 2 SWL are less likely to respond to further SWL. We reviewed mgmt options of active surveillance, URS, PCNL, and repeat SWL. He has decided to continue tomonitor for now, plan re-evaluation in [address] to better compare stone burden and configuration. 2)LUTS. Stable, with minimal bother. We again discussedmgmt options including surgical prostate resection and continued medical management. He wishes to continue with current course of tamsulosin andproscar. documented in this encounter Plan of Treatment Upcoming Encounters Date Type Department Care Team (Late st Contact Info) Description 01/25/2025 8:15 AM EDT Office Visit Dermatology at [place] [address] [facility] [place] [address] Cortez Bey MD [address] [address], [facility] [place] [address] documented as of this encounter Results * [...] kidney documented in this encounter Care Teams Bait Tier Relationship Specialty Start Date End Date Froy Monroe MD [address] [place] [address] PCP - General 02/17/10 10/26/16 documented as of this encounter
--- OUTSIDE RECORDS SUMMARY | 2024-01-23 15:49 | XMS_ITS | Encounter Summary ---
Author [place] [address] Care Team Providers Care Rejoiner Name Role Phone Froy Monroe MD Primary Care Provider + Reason for Visit * Reason Comments Procedure Encounter Details Date Type Department Care Team (Late st Contact Info) Description 12/13/2013 9:15 AM EDT Office Visit Dermatology at [address] [address] Cortez Bey MD [address] [place] [address], [facility] [place] [address] Basal cell carcinoma (Primary Dx) Discharge Disposition: Home Social History Tobacco Use Types Packs/Day Years Used Date Smoking Tobacco: Never Sex and Gender Information Value Date Recorded Sex Assigned at Not on file Gender Identity Not on file Sexual Orientation Not on file documented as of this encounter Patient Instructions * Patient Instructions* Suzi Galvez LPN - 12/13/2013 9:20 AM EDT Images from the original note were not included. [facility] Learning About Basal Cell Skin Cancer Your Care Instructions Basal cell skin cancer (carcinoma) is a type of skin cancer. It most often appears on areas of the body that have been exposed to the sun. These areas include the head, face, neck, back, chest, or shoulders. The nose is the most common site. This cancer grows slowly and does not usually spread, or metastasize, to other parts of the body. It is almost always cured when it is found early and treated. This skin cancer is usually caused by too much sun. Using tanning beds or sunlamps can also cause it. What are the symptoms? Signs of basal cell carcinoma include: ?? Any firm, pearly bump with tiny blood vessels that look spidery. ?? Any red, tender, flat spot that bleeds easily. ?? Any small, fleshy bump with a smooth, pearly appearance. It may have a sunken center. ?? Any smooth, shiny bump that may look like a mole or cyst. ?? Any patch of skin, especially on the face, that looks like a scar and is firm to the touch. ?? Any bump that itches, bleeds, crusts over, and then repeats the cycle and has not healed in a few weeks. ?? Any change in the size, shape, or color of a mole or a skin growth. How is it treated? Your doctor will want to remove all of the cancer. There are several ways to remove it. It depends on how big it is, where it is on your body, and your age and overall health. Treatment options include: ?? Surgery to cut out the cancer. ?? Mohs micrographic surgery. This surgery removes the skin cancer one layer at a time, checking each layer for cancer cells right after it is removed. ?? Curettage and electrosurgery. Curettage uses a spoon-shaped instrument (curette) to scrape off the skin cancer, and electrosurgery controls the bleeding and destroys any remaining cancer cells. ?? Cryosurgery. Cryosurgery destroys the skin cancer by freezing it with liquid nitrogen. ?? Radiation therapy. Radiation therapy uses X-rays or other types of radiation to kill cancer cells. It may be done if surgery isn't an option. Other treatment options include chemotherapy cream and photodynamic therapy. If your doctor removes the cancer, he or she will send it to a lab. The lab makes sure it is a basal cell cancer and that it all was removed. If cancer is still there, you may need more treatment. How can you prevent it? ?? Always wear a wide-brimmed hat and long sleeves and pants when you are outdoors. ?? Avoid the sun between 10 a.m. and 4 p.m., which is the peak time for UV rays. ?? Always wear sunscreen on exposed skin. Make sure the sunscreen blocks ultraviolet rays (both UVAand UVB) and has a sun protection factor (SPF) of at least 15. Use it every day, even when it is cloudy. Some doctors may recommend a higher SPF, such as 30. ?? Do not use tanning booths or sunlamps. ?? Use lip balm or cream that has sun protection factor (SPF) to protect your lips from getting sunburned or getting cold sores. ?? Wear sunglasses that block UV rays. When should you call for help? Watch closely for changes in your health, and be sure to contact your doctor if: ?? You see a change in your skin, such as a growth or mole that: ?? Grows bigger. This may happen slowly. ?? Changes color. ?? Changes shape. ?? Starts to bleed easily. Follow-up care is a martinez part of your treatment and safety. Be sure to make and go to all appointments, and call your doctor if you are having problems. It's also a good idea to know your test resultsand keep a list of the medicines you take. Where can you learn more? Visit our health information library at [email or web address] You can also view health information on [employer], your personal patient account. Log in or sign up today. Enter V456 in the search box to learn more about Learning About Basal Cell Skin Cancer. ?? [phone] [employer]. Care instructions adapted under license by [facility]. This care instruction is for use with your licensed healthcare professional. If you have questions about a medical condition or this instruction, always ask your healthcare professional. [employer] disclaims any warranty or liability for your use of this information. Content Version: 9.9.742520; Last Revised: October 31, 2012 documented in this encounter Progress Notes * Cortez Bey MD - 12/13/2013 9:54 AM EDT Clinical Impression: BCCA, left distal arm, recurrent after punch biopsy July 2012. Size: 1 cm. Deep suture: 4-0 Vicryl. Surface suture: 4-0 Ethilon. Followup: In 10 to 14 days for suture removal and biopsy results. Indications for surgery, possible adverse outcomes, and activity restrictions were discussed. Informed verbal consent was obtained. Skin surface was prepared with 4% chlorhexidine and draped in the usual sterile manner. Local anesthesia with 1% lidocaine, 1:100,000 epinephrine, and 0.1 mEq/mL bicarbonate. Using a #15 blade, and 5 mm margins, an elliptical excision was carried out around the lesion. Undermining performed peripherally. Hemostasis with electrodesiccation. Layered closure performed, with specimen to Pathology. Wound dressed, wound care reviewed. End length of suture line was 3.5 cm. Followup in 10 to 14 days for suture removal and biopsy results. COPY: Froy Monroe M.D. documented in this encounter Plan of Treatment Upcoming Encounters Date Type Department Care Team (Late st Contact Info) Description 01/25/2025 8:15 AM EDT Office Visit Dermatology at [address] [address] Cortez Bey MD [address] [place] [address], [facility] [place] [address] documented as of this encounter Visit Diagnoses Diagnosis Basal cell carcinoma- Primary Basal cell carcinoma of skin, site unspecified documented in this encounter Care Teams Rejoiner Relationship Specialty Start Date End Date Froy Monroe MD [address] [place] [address] PCP - General 02/17/10 10/26/16 documented as of this encounter
--- OUTSIDE RECORDS SUMMARY | 2024-01-23 15:49 | XMS_ITS | Encounter Summary ---
Author Organization [place] [address] Care Team Providers Care Linen Room Attendant Name Role Phone Froy Monroe MD Primary Care Provider + Reason for Visit * Reason Onset Date Comments Medication Refill 10/15/2015 Encounter Details Date Type Department Care Team (Late st Contact Info) Description 10/15/2015 Refill [place] [address] [facility] [address] [place] [address] Social History Tobacco Use Types Packs/Day Years [...] 8:15 AM EDT Office Visit Dermatology at [place] [address] [facility] [place] [phone] Cortez Bey MD [address], [place] [address] documented as of this encounter Visit Diagnoses Not on filedocumented in this encounter Care Teams Linen Room Attendant Relationship Specialty Start Date End Date Froy Monroe MD [address] [place] [address] PCP - General 02/17/10 10/26/16 documented as of this encounter
--- OUTSIDE RECORDS SUMMARY | 2024-01-23 15:49 | XMS_ITS | Encounter Summary ---
Author Organization [facility] Address [facility] [place] [address] Care Team Providers Care Outdoor Fitness Trainer Name Role Phone Froy Monroe MD Primary Care Provider + Reason for Visit * Reason Comments Ocular Hypertension glauc eval * Consultation (Routine) - Closed Specialty Diagnoses / Procedures Referred By Jeannie barker Referred To Contact Ophthalmology Diagnoses glaucoma Procedures consult,eval,treat Lan Payne MD [address] [place] [phone] Micheline Fitzgerald MD [facility] DR O[place] [address] Referral ID Status Reason Start Date Expiration Date Visits Re quested Visits Authorized [id number] Closed 05/23/2015 05/22/2016 1 1 Encounter Details Date Type Department Care Team (Late st Contact Info) Description 08/27/2015 1:00 PM EDT [place] [address] Micheline Fitzgerald MD [facility] DR O[place] [address] Primary open angle glaucoma of left eye, mild stage (Primary Dx); Ocular hypertension, bilateral Social History Tobacco Use Types Packs/Day Years Used Date Smoking Tobacco: Never Alcohol Use Standard Drinks/Week Comments Yes 0 (1 standard drink = 0.6 oz pur e alcohol) Sex and Gender Information Value Date Recorded Sex Assigned at Not on file Gender Identity Not on file Sexual Orientation Not on file documented as of this encounter Patient Instructions * Patient Instructions* Micheline Fitzgerald MD - 08/27/2015 3:24 PM EDT HPI Ocular Hypertension Additional comments: glauc eval Comments Pt wishes to establish Ocular HTN care here. Formerly saw Dr. Payne: Pt notes decreased centralvision OS, difficulty with glare OD. KIRSTIE Santa has performed the documentation for this encounter in the presence of and acting as a scribe for MICHELINE FITZGERALD MD. I performed the above scribed service and agree with the accuracy of the documentation in this encounter. Last edited by Micheline Fitzgerald MD on 08/27/2015 3:09 PM. (History) Open-angle glaucoma Assessment: Glaucoma OS - eye irritation due [...] in 6 wks IOP s/p med changes For additional information about eye conditions, visit the Eye Facts portion of my website at [email or web address] and I also started a Glaucoma Patient Group on [employer] (htt [email or web address]/groups/[email or web address]) for patients to seek help from one another. (Search for Glaucoma Patient Group and then ask to join.) documented in this encounter Progress Notes * Micheline Fitzgerald MD - 08/27/2015 3:22 PM EDT Open-angle glaucoma Assessment: Glaucoma OS - eye irritation due [...] in 6 wks IOP s/p med changes documented in this encounter Miscellaneous Notes * Assessment & Plan Note - Micheline Fitzgeradl MD - 08/27/2015 3:19 PM EDT Associated Problem(s): Open-angle glaucoma Assessment: Glaucoma OS - eye irritation due [...] in 6 wks IOP s/p med changes documented in this encounter Plan of Treatment Upcoming Encounters Date Type Department Care Team (Late st Contact Info) Description 01/25/2025 8:15 AM EDT Office Visit Dermatology at [place] [address] [place] [address] Cortez Bey MD [address] [place] [address] documented as of this encounter Procedures Procedure Name Priority Date/Time Associated Diagnosis Comments OCT OPTIC NERVE - OU - BOTH EYES Routine 08/27/2015 3:00 PM EDT Ocular hypertension, bilateral AUTOMATED VISUAL FIELD - EXTENDED - OS - LEFT EYE Routine 08/27/2015 2:59 PM EDT Ocular hypertension, bilateral AUTOMATED VISUAL FIELD - EXTENDED - OD - RIGHT EYE Routine 08/27/2015 2:57 PM EDT Ocular hypertension, bilateral documented in this encounter Results * OCT OPTIC [id number] EYES (08/27/2015 3:00 PM EDT) Anatomical Region Laterality Modality Other Narrative 08/27/2015 3:00 PM EDT Right Eye Quality was good. Left Eye Quality was good. Notes Optic nerve report G = 99 OD G = 82 OS within normal limits OD, outside normal limits OS Posterior pole report OD-OS asymmetry: RNFL thinning OS > OD Hemisphere asymmetry: OS > OD Micheline Fitzgerald MD OPHTHALMOLOGY SERV ICES ORDERABLES * AUTOMATED VISUAL FIELD - EXTENDED - OS - LEFT EYE (08/27/2015 2:59 PM EDT) Anatomical Region Laterality Modality Other Narrative 08/27/2015 2:59 PM EDT Threshold was 24-2. Strategy was KIERSTEN. Reliability was borderline. Notes Visual Field Results Type of VF: ??HVF 24-2 Indication: ??Ocular HTN Reliability: ??good Glaucoma Hemifield Test (GHT) OD: borderline normal limits OS: full threshold Visual Function Index (VFI) OS: full threshold MD OS: full threshold, Stimulus 5 Interpretation: Threshold testing, stimulus 5 Micheline Fitzgerald MD OPHTHALMOLOGY SERV ICES ORDERABLES * AUTOMATED VISUAL FIELD - EXTENDED - OD - RIGHT EYE (08/27/2015 2:57 PM EDT) Anatomical Region Laterality Modality Other Narrative 08/27/2015 2:57 PM EDT Threshold was 24-2. Strategy was KIERSTEN. Reliability was poor. Notes Visual Field Results Type of VF: ??HVF 24-2 Indication: ??Ocular HTN Reliability: ??good Glaucoma Hemifield Test (GHT) OD: borderline normal limits Visual Function Index (VFI) OD: 99 % MD OD: -1.56 dB ? PSD OD: 1.89 dB Interpretation: Borderline OD Micheline Fitzgerald MD OPHTHALMOLOGY SERV ICES ORDERABLES documented in this encounter Visit Diagnoses Diagnosis Primary open angle glaucoma of left eye, mild stage- Primary Ocular hypertension, bilateral Borderline glaucoma with ocular hypertension documented in this encounter Care Teams Outdoor Fitness Trainer Relationship Specialty Start Date End Date Froy Monroe MD [address] [place] [address] PCP - General 02/17/10 10/26/16 documented as of this encounter
--- OUTSIDE RECORDS SUMMARY | 2024-01-23 15:49 | XMS_ITS | Encounter Summary ---
[place] [address] Care Team Providers Care Salesforce Consultant Name Role Phone Froy Monroe MD Primary Care Provider + Reason for Visit * Auth/Cert - Closed Specialty Diagnoses / Procedures Referred By Jeannie t Referred To Contact Diagnoses Calculus of kidney LEFT RENAL STONES Procedures PRO FRAGMENT KIDNEY STONE/ ESWL E.S.W.L. Referral ID Status Reason Start Date Expiration Date Visits Re quested Visits Authorized [id number] Closed 1 1 Encounter Details Date Type Department Care Team (Late st Contact Info) Description 01/24/2015 11:18 AM EDT Anesthesia Event [facility] [address] Yoli Skinner MD [facility] [place] [address] Kelley Lazaro MD [facility] [place] [address] Anesthesia Record Procedure Summary Procedure Name Responsible Anesthesiologist Anesthesia Start Time Anesthesia Stop Time E.S.W.L. (WRVU 9.77) (Left: Flank) Yoli Skinner MD 01/24/15 1118 01/24/15 1218 Events Date Time Event Comment 01/24/2015 0824 1118 Start 1120 AN Verify 1120 An Start Data 1125 An Induction 1128 An Intubation 1128 Anesthesia Ready 1215 Extubation/LMA Out To Delete (skip) the Extubation event, click the X below. 1215 an stop data 1217 Recovery or ICU Handoff Ny ent care was transferred to the destination unit staff after review of the patient's medical history, current anesthetic/surgical status and plan, according to the Provider Handoff Checklist. 1218 Stop Meds Name Total Midazolam 2 mg fentaNYL 100 mcg IV Lidocaine 40 mg Propofol 200 mg Ondansetron 4 mg Dexamethasone 4 mg Dexmedetomidine 12 mcg Propofol INF 323.02 mg ceFAZolin (ANCEF) 2 gram/50 mL infusion 2 g Ciprofloxacin 400 mg lactated ringers infusion 1,000 mL 1,000 mL * Agents Name O2 * Blood No blood administrations on file. Lines, Drains, and Airways Type Details Placement Removal (RETIRED) Peripheral IV Line - Single Lumen 01/24/15; 1040; basilic vein right (medial side of arm); [id number] catheter system; 20 gauge, 1 in length; intradermal injection; 07/11/17 (Auto removal via utility); 0921 (Auto removal via utility) 01/24/15 1040 by Whitney Flanagan RN 07/11/17 0921 by John Abdalla Supraglottic Mask Ventilation: No t Attempted (0); LMA Type: iGel; LMA Size: 4; Inserted by: Joanne WILLSON; Removal Date: 01/24/15; Removal Time: 1215 01/24/15 1128 by Ruba Rubio CRNA 01/24/15 1215 by Yoli Skinner MD documented in this encounter Social History Tobacco Use Types Packs/Day Years Used Date Smoking Tobacco: Never Sex and Gender Information Value Date Recorded Sex Assigned at Not on file Gender Identity Not on file Sexual Orientation Not on file documented as of this encounter OR Notes * Anesthesia Postprocedure Evaluation - Yoli Skinner MD - 01/24/2015 1:07 PM EDT Patient: Jerad Jauregui Procedure(s) Performed: Procedure(s): E.S.W.L. Actual Anesthetic: general Patient location: PACU Post-op pain: Adequate analgesia Post-op nausea: no nausea or vomiting Last Vitals: Filed Vitals: 01/24/15 1233 BP: 100/49 Pulse: 56 Temp: Resp: 18 Post-op cardiovascular and respiratory status: is stable Level of consciousness: awake, alert and oriented Complications: no apparent complications and tolerated the procedure well Fluid Status: normal * Anesthesia Preprocedure Evaluation - Yoli Skinner MD - 01/24/2015 8:23 AM EDT Pre-Anesthesia Evaluation for: Jerad Jauregui a 59 y.o. male. Procedure(s): E.S.W.L. Patient Active Problem List Diagnosis ??? AK (actinic keratosis) ??? Lower urinary tract symptoms (LUTS) ??? Nephrolithiasis ??? Visit for suture removal ??? Basal cell carcinoma ??? Dermatofibroma No past medical history on file. No past surgical history on file. History Substance Use Topics ??? Smoking status: Never Smoker ??? Smokeless tobacco: Not on file ??? Alcohol Use: Not on file History Drug Use Not on file Allergies Allergen Reactions ??? Codeine Medications: MAR and/or home medications have been reviewed. Physical Exam: There were no vitals filed for this visit. There is no weight on file to calculate BMI. Airway Assessment: Mallampati: II TM distance: <3 FB Neck ROM: full Cardiovascular Assessment: cardiovascular exam normal Pulmonary Assessment: pulmonary exam normal Dental Assessment: Comment: poor Misc Assessment: Anesthesia Plan: ASA 2 general, with a(n) intravenous induction Region - Other Informed Consent: Anesthetic plan and risks discussed with patient. Plan discussed with [employer] FLATBED DRIVER. PAT Staff Note documented in this encounter Plan of Treatment Upcoming Encounters Date Type Department Care Team (Late st Contact Info) Description 01/25/2025 8:15 AM EDT Office Visit Dermatology at [place] [address] [place] [address] Cortez Bey MD [address] [facility] [place] [address] documented as of this encounter Visit Diagnoses Not on filedocumented in this encounter Administered Medications Inactive Administered Medications - up to 3 most recent administrations Medication Order MAR Action Action Date Dose Rate Site ceFAZolin (ANCEF) 2 gram/50 mL infusion 1 dose, Starting on Tue01/24/15 at 1104, Until Tue01/24/15 at 1130, WHITNEY FLANAGAN: cabinet override Given 01/24/2015 11:30 AM EDT 2 g ciprofloxacin (CIPRO) 400mg in dextrose 5% 200mL PRN, Starting on Tue01/24/15 at 1130, Until Tue01/24/15 at 1218, Administer over 60 Minutes, Anesthesia Intra-op Given 01/24/2015 11:30 AM EDT 400 mg dexamethasone (DECADRON) injection PRN, Starting on Tue01/24/15 at 1132, Until Tue01/24/15 at 1218, Anesthesia Intra-op, Routine Given 01/24/2015 11:32 AM EDT 4 mg dexmedetomidine (PRECEDEX) injection PRN, Starting on Tue01/24/15 at 1132, Until Tue01/24/15 at 1218, Anesthesia Intra-op, Routine Given 01/24/2015 11:38 AM EDT 4 mcg Given 01/24/2015 11:35 AM EDT 4 mcg Given 01/24/2015 11:32 AM EDT 4 mcg fentaNYL 50 mcg/mL multi-dose injection PRN, Starting on Tue01/24/15 at 1120, Until Tue01/24/15 at 1218, Pain, Anesthesia Intra-op, Routine Given 01/24/2015 12:02 PM EDT 25 mcg Given 01/24/2015 11:53 AM EDT 25 mcg Given 01/24/2015 11:25 AM EDT 25 mcg lactated ringers infusion 1,000 mL 1,000 mL, at 100 mL/hr, Intravenous, CONTINUOUS, Starting on Tue01/24/15 at 1045, Until Tue01/24/15 at 1337, Day of Surgery (Day of Procedure) New Bag 01/24/2015 12:01 PM EDT New Bag 01/24/2015 10:39 AM EDT 1,000 mLs 100 mL/hr lidocaine (PF) (XYLOCAINE) 100 mg/5 mL (2 %) injection PRN, Starting on Tue01/24/15 at 1125, Until Tue01/24/15 at 1218, Anesthesia Intra-op, Routine Given 01/24/2015 11:25 AM EDT 40 mg midazolam (PF) (VERSED) 1 mg/mL multi-dose injection PRN, Starting on Tue01/24/15 at 1118, Until Tue01/24/15 at 1218, Sleep, Anesthesia Intra-op, Routine Given 01/24/2015 11:18 AM EDT 2 mg ondansetron (ZOFRAN) injection PRN, Starting on Tue01/24/15 at 1203, Until Tue01/24/15 at 1218, Nausea, Anesthesia Intra-op, Routine Given 01/24/2015 12:03 PM EDT 4 mg propofol (DIPRIVAN) 10 mg/mL bolus injection (Anesthesia) PRN, Starting on Tue01/24/15 at 1126, Until Tue01/24/15 at 1218, Anesthesia Intra-op Given 01/24/2015 11:26 AM EDT 200 mg propofol (DIPRIVAN) infusion CONTINUOUS PRN, Starting on Tue01/24/15 at 1129, Until Tue01/24/15 at 1218, Anesthesia Intra-op, Routine Rate/Dose Change 01/24/2015 12:04 PM EDT 50 mcg/kg/min 25.2 mL/hr Rate/Dose Change 01/24/2015 11:50 AM EDT 75 mcg/kg/min 37. 8 mL/hr New Bag 01/24/2015 11:29 AM EDT 100 mcg/kg/min 50.3 mL/ hr documented in this encounter Care Teams Salesforce Consultant Relationship Specialty Start Date End Date Froy Monroe MD [address] [place] [address] PCP - General 02/17/10 10/26/16 documented as of this encounter
--- OUTSIDE RECORDS SUMMARY | 2024-01-23 15:49 | XMS_ITS | Encounter Summary ---
Author Organization [facility] [place] [address] Care Team Providers Care Direct Service Provider Name Role Phone Froy Monroe MD Primary Care Provider + Reason for Referral * (Routine) - Specialty Diagnoses / Procedures Referred By Jeannie barker Referred To Contact Radiology Diagnoses Nephrolithiasis Procedures CT Abdomen & Pelvis Wo Contrast Shantanu Goodman Jr., MD [facility] [place] [address] Referral ID Status Reason Start Date Expiration Date V isits Requested Visits Authorized [id number] 12/24/2014 12/24/2015 1 1 Encounter Details Date Type Department Care Team (Latest Contact Info) Description 12/24/2014 4:43 PM EDT - 12/24/2014 11:59 PM EDT Hospital Encounter [place] [address] Nephrolithiasis Social History Tobacco Use Types Packs/Day [...] 8:15 AM EDT Office Visit Dermatology at [place] [address] [facility] [place] [address] Cortez Bey MD [address], [place] [address] documented as of this encounter Procedures Procedure Name Priority Date/Time Associated Diagnosis Comments CT ABDOMEN AND PELVIS WO CONTRAST Routine 12/24/2014 5:03 PM EDT Nephrolithiasis documented in this encounter [...] collecting systemobstruction bilaterally. Shantanu Goodman Jr., MD IMG CT ORDERABLES documented in this encounter Visit Diagnoses Diagnosis Nephrolithiasis Calculus of kidney documented in this encounter Care Teams Direct Service Provider Relationship Specialty Start Date End Date Froy Monroe MD [address] [place] [address] PCP - General 02/17/10 10/26/16 documented as of this encounter
--- OUTSIDE RECORDS SUMMARY | 2024-01-23 15:49 | XMS_ITS | Encounter Summary ---
Author Organization [facility] Address [facility] [place] [address] Care Team Providers Care Wool Hat Flanger Name Role Phone Froy Monroe MD Primary Care Provider + Encounter Details Date Type Department Care Team (Late st Contact Info) Description 03/30/2013 [place] [address] Shantanu Goodman Jr., MD [facility] [address] Social History Tobacco Use Types Packs/Day Years Used Date Smoking Tobacco: Never Sex and Gender Information Value Date Recorded Sex Assigned at Not on file Gender Identity Not on file Sexual Orientation Not on file documented as of this encounter Plan of Treatment Upcoming Encounters Date Type Department Care Team (Late st Contact Info) Description 01/25/2025 8:15 AM EDT Office Visit Dermatology at [place] [address] [facility] [place] [address] Cortez Bey MD [address] [facility], [place] [address] documented as of this encounter Procedures Procedure Name Priority Date/Time Associated Diagnosis Comments FILM LIBRARY STORAGE ONLY ULTRASOUND STUDY Routine 03/30/2013 9:33 AM EST documented in this encounter Results * Film Library- Storage only Ultrasound Study (03/30/2013 9:33 AM EST) Anatomical Region Laterality Modality Other 03/30/2013 9:33 AM EST Narrative 06/12/2014 9:38 AM EDT This is a Non-reportable exam Procedure Note MARIANNE, UNSIGNED REPORT - 06/12/2014 This is a Non-reportable exam Shantanu Goodman Jr., MD IM FILM LIBRARY O RDERABLES documented in this encounter Visit Diagnoses Not on filedocumented in this encounter Care Teams Wool Hat Flanger Relationship Specialty Start Date End Date Froy Monroe MD [address] [facility] [place] [address] PCP - General 02/17/10 10/26/16 documented as of this encounter
--- OUTSIDE RECORDS SUMMARY | 2024-01-23 15:49 | XMS_ITS | Encounter Summary ---
Author Organization [facility] Address [address] [place] [address] Care Team Providers Care Heel Sprayer Name Role Phone Froy Monroe MD Primary Care Provider U navailable Encounter Details Date Type Department Care Team (Latest Contact Info) Description 10/09/2013 7:08 EDT - 10/09/2013 11:40 EDT Hospital Encounter [facility] Perioperative Services- [facility] [address] [place] [address] Sadiq Rubin MD [address] [place] [phone] Left retinal detachment (Primary Dx) Discharge Disposition: Home or Self [...] Body Mass Index 23.75 10/07/2013 1504 EDT documented in this encounter Discharge Instructions * Discharge Instructions* Sadiq Rubin - 10/09/2013 10:51 EDT Leave your eye patch and shield - if any were placed by your surgeon - in place. For pain, you may use Tylenol (acetominophen) and/or Advil (ibuprofen) or other similar non-prescription, [id number] medications in doses as noted on manufacturers' [...] questions about use of these medications, call [facility] at [phone]. For showering, avoid directing your face into the stream of the shower head. Do not worry about a small amount of water and/or soap that gets into your eye patch and/or eye during shampooing, face washing, etc. Do not lift anything heavier than a light bag of groceries and, until notified by your surgeon, do not exercise. Follow-up tomorrow at [facility], [address] [place] [address], [address] [place] [address], any time between 9:15 AM and 2 PM. (That location is up the block from [employer] at the corner of [facility] [address]] and [facility], and across the street from [employer].) At that appointment, your surgeon and the [facility] staff will review post-operative instructions that will apply moving forward after tomorrow's visit; the instructions you are holding and reading right now apply to today, tonight, and tomorrow morning prior to your appointment. Tomorrow, you will learn about eyedrop use after patch removal, further activity and/or exercise restrictions, any ongoing positioning needs, etc. It is very strongly recommended that you have another adult with you at that appointment and in the examination room to help you keep track of all of this and to help you figure out whatquestions you might have. documented in this encounter [...] documented in this encounter Progress Notes * PIANO ASSEMBLER, SCAN 2 - 10/15/2013 1336 EDT * Milagros Reyes RN - 10/09/2013 1115 EDT 1045 pt arrived to [facility] s/p left eye surgery. Pt denies pain. Iv to left hand infusing LR as ordered. at bedside. Tolerating clear liquids. Denies nausea. Vss. Side rails up. Resting on stretcherwith call light within reach. 1140 anesthesia sign out obtained. Iv access removed without difficulty. Went over discharge instructions with good understanding. Denies pain and or nausea. Pt discharged to home at this time with via w/c * Donita Weston RN - 10/07/2013 1523 EDT Jerad Jauregui has been instructed as follows regarding medication administration for the day of the scheduled procedure. Date of Surgery: 10/09/2013 Instructions for Taking Medications Day of Surgery Medication Last Dose Hold DOS Take DOS finasteride (PROSCAR) 5 mg tablet Takes HS lutein 6 mg tablet y Multivitamins with Minerals tablet y tamsulosin (FLOMAX) 0.4 mg capsule Takes HS vitamin b-12 (CYANOCOBALAMIN) 50 mcg tablet y Hold all vitamins, ASA and Motrins till after surgery patient understands instructions documented in this encounter H&P Notes * Sadiq Rubin - 10/09/2013 0726 EDT The preoperative history and physical which was performed within 30 days of this procedure has been reviewed and the clinically appropriate elements of the physical examination have been repeated. There are no changes to the documented history and physical or if so such changes are documented below Sadiq Rubin 10/09/2013 7:26 Source Note - PIANO ASSEMBLER, SCAN 2 - 10/05/2013 14:53 EDT * PIANO ASSEMBLER, SCAN 2 - 10/05/2013 1453 EDT documented in this encounter Nursing Notes * PIANO ASSEMBLER, SCAN 2 - 10/15/2013 1336 EDT documented in this encounter OR Notes * OR PreOp - PIANO ASSEMBLER, SCAN 2 - 10/15/2013 1336 EDT * OR Surgeon - Sadiq Rubin - 10/15/2013 0803 EDT OPERATIVE REPORT SERVICE DATE: 10/09/2013 SURGEON: Sadiq Rubin MD MANAGER PAYROLL: Pernell Newell PREOPERATIVE DIAGNOSIS: History of retinal detachment repair, left eye, with indwelling vitreous cavity silicone oil, and anteriorly displaced silicone oil droplets in anterior chamber with secondaryglaucoma. POSTOPERATIVE DIAGNOSIS: History of retinal detachment repair, left eye, with indwelling vitreous cavity silicone oil, and anteriorly displaced silicone oil droplets in anterior chamber with secondary glaucoma. PROCEDURE: Two port pars plana removal of vitreous silicone oil with incisional limbal removal of anterior chamber silicone oil, left eye. FLUIDS: Per the anesthesia record. URINE OUTPUT: None. ESTIMATED BLOOD LOSS: None. ANESTHESIA: Monitored anesthesia care with local (5 mL of 1% plain lidocaine mixed with 5 mL of 0.5% plain bupivacaine for 5 mL retrobulbar, 1 mL supratrochlear, and 1 mL modified Van Lint blocks. NARRATIVE: The patient was correctly identified as Jerad Jauregui in the preoperative holding area and brought to the operating room where local anesthesia was given on the left side in the standard fashion following light IV sedation. The patient was prepped and draped in the usual sterile fashion for vitreoretinal surgery on the left side. A wire lid speculum was placed between the lids of the left eye. Temporal and inferonasal conjunctival peritomies were dissected using the blunt Keanu scissors and tissue forceps. Episcleral hemostasis was maintained using light application of the wet-field cautery. A 5-0 Mersilene suture was used to place 2 horizontal and parallel intrascleral mattress bitesto surround a point marked to be 3 mm posterior to the corneoscleral limbus in the inferotemporal qu adrant. An MVR blade was used to fashion a full-thickness sclerotomy at this point. The 4 mm infusion cannula connected to the infusion line was inserted and placed through the sclerotomy and tied securely using the preplaced Mersilene suture. The tip of the infusion cannula was verified to be in the intravitreal cavity by transpupillary illumination, so the infusion line was turned on. An additional sclerotomy was fashioned temporal to the limbus in a similar fashion. The silicone bleach boiler packer handpiece tip was inserted through this sclerotomy and the indwelling vitreous cavity silicone oil was removed. The Mersilene suture was cut and each of the sclerotomies were closed using [id number] 7-0 Vicryl suture. The conjunctiva was reapproximated about the limbus and to itself in several locations using interrupted 7-0 Vicryl suture. Attention was turned to the anterior chamber oil. A limbal incision was made temporally with a Supersharp knife. A 3 mL syringe partially filled with BSS Plus with a blunt 30-gauge irrigating cannulaat the hub was employed to extract silicone oil droplets centered against the endothelium, using a pull-push washout technique. The small paracentesis was watertight following withdrawal of the cannula. Finger tension on the globe was approximately 20. Subconjunctival antibiotic and steroid injections were administered. A drop of atropine ophthalmic solution and a ribbon of TobraDex ophthalmic ointment were placed on the eye. The eye was patched and shielded. The patient left the operating room in stable condition. Unless otherwise noted, there were no complications, no blood loss, no cultures obtained, no specimens removed, and no drains retained. Sadiq Rubin MD 07 29 AM / Sadiq Rubin MD cn Confirmation: [id number] Dictation ID: [id number] cc:Sadiq Perkins MD * OR PreOp - PIANO ASSEMBLER, SCAN 2 - 10/09/2013 1059 EDT * OR PreOp - PIANO ASSEMBLER, SCAN 2 - 10/09/2013 1059 EDT * Anesthesia Procedure Notes - PIANO ASSEMBLER, SCAN 2 - 10/09/2013 1054 EDT * OR Surgeon - Sadiq Rubin - 10/09/2013 1048 EDT Brief Op Note Pre-op Diagnosis(es): old retinal detachment, indwelling silicone oil, secondary glaucoma left eye Post-op Diagnosis(es): same Procedure(s): pars plana removal of silicone oil and anterior chamber 'washout' left eye Surgeon: [employer] Superintendent: Stefani Newell Anesthesia: MAC/local IV Fluid: per Anesthesia Urine output: none Complication(s): none Specimen(s): none Misc: n/a * Anesthesia Preprocedure Evaluation - PIANO ASSEMBLER, MAN 2 - 10/09/2013 1002 EDT documented in this encounter Miscellaneous Notes * Anesthesia Post-Eval - Henrry Morse - 10/09/2013 1146 EDT Post Anesthesia Evaluation Note Date of Service: 10/09/2013 Jerad Jauregui, a 58 y.o. year old male has received MAC today. He has been evaluated, assessed anddischarged from anesthesia care with stable cardiorespiratory function and alert mental status. The last set of recorded vital signs and pain rating were reviewed: Temp: 36.4 ??C (97.5 ??F) (10/09/13 1138), Heart Rate: 62 BPM (10/09/13 1138), BP: 118/62 mmHg (10/09/13 1138), Resp: 18 (10/09/13 1138), SpO2: 99 % (10/09/13 1138),Numeric Pain Level (Scale 1-10): 0 Jerad Jauregui participated in this evaluation unless otherwise noted. His pain, nausea and vomiting have been managed and his body temperature and fluid balance have been restored. Additional monitoring and assessment needs have been addressed. If present, any postoperative events are documented below. Henrry Morse MD 10/09/2013 11:46 documented in this encounter Plan of Treatment Not on file documented as of this encounter Procedures Procedure Name Priority Date/Time Associated Diagnosis Comments ECG REPORT - SCANNED 10/05/2013 15:24 EDT documented in this encounter Results * ECG REPORT - SCANNED (10/05/2013 15:24 EDT) 10/05/2013 15:2 4 EDT Scan 2 Vascular Physician PROCEDURE/MINOR PING GICAL ORDERABLES documented in this encounter Visit Diagnoses Diagnosis Left retinal detachment- Primary Unspecified retinal detachment documented in this encounter Administered Medications Inactive Administered Medications - up to 3 most recent administrations Medication Order MAR Action Action Date Dose Rate Site lactated ringers (LR) infusion 30 mL/hr, intravenous, CONTINUOUS, Starting on Tue10/09/13 at 0800, Until Tue10/09/13 at 1349, Routine, Pre-op Rx Needs Approval New Bag 10/09/2013 7:58 EDT 30 mL/hr 30 mL/hr lactated ringers (LR) infusion at 75 mL/hr, intravenous, CONTINUOUS, Starting on Tue10/09/13 at 1100, Until Tue10/09/13 at 1349, Routine, Recovery (only) New Bag 10/09/2013 11:15 EDT 75 mL/hr ofloxacin (OCUFLOX) 0.3 % ophthalmic solution 1 Drop 1 Drop, left eye, PRE-OP Q 5 MINUTES, 3 doses, Starting on Tue10/09/13 at 0731, Until Tue10/09/13 at 0852, vitreoretinal surgery, Routine, Pre-op Rx Needs Approval Given 10/09/2013 8:52 EDT 1 Drop Given 10/09/2013 8:51 EDT 1 Drop Given 10/09/2013 8:50 EDT 1 Drop phenylephrine (MYDFRIN) 2.5 % ophthalmic solution 1 Drop 1 Drop, left eye, PRE-OP Q 5 MINUTES, 3 doses, Starting on Tue10/09/13 at 0731, Until Tue10/09/13 at 0855, Irritation, vitreoretinal surgery, Routine, Pre-op Rx Needs Approval Given 10/09/2013 8:[address] op Given 10/09/2013 8:54 EDT 1 Drop Given 10/09/2013 8:53 EDT 1 Drop tropicamide (MYDRIACYL) 1 % ophthalmic solution 1 Drop 1 Drop, left eye, PRE-OP Q 5 MINUTES, 3 doses, Starting on Tue10/09/13 at 0731, Until Tue10/09/13 at 0858, vitreoretinal surgery, Routine, Pre-op Rx Needs Approval Given 10/09/2013 8:58 EDT 1 Drop Given 10/09/2013 8:57 EDT 1 Drop Given 10/09/2013 8:56 EDT 1 Drop documented in this encounter Discontinued Medications Medication Sig Discontinue Reason Start Date End Da te loteprednol etabonate (LOTEMAX) 0.5 % ophthalmic suspension Place into both eyes 7X DAILY. 10/09/2013 latanoprost (XALATAN) 0.005 % ophthalmic solution Place 1 Drop into both eyes daily. 10/09/2013 brimonidine (ALPHAGAN P) 0.1 % ophthalmic solution Place 1 Drop into both eyes every 8 hours. 10/09/2013 dorzolamide-timolol (COSOPT) 2-0.5 % ophthalmic solution Place 1 Drop into both eyes 2 times daily. 10/09/2013 METHAZOLAMIDE MISC by left lower eyelid route 3 times daily. 10/09/2013 documented as of this encounter Historical Medications * This list may reflect changes made after this encounter. Medication Sig Dispensed Refills Start Date End Date loteprednol etabonate (LOTEMAX) 0.5 % ophthalmic suspension Place into both eyes 7X DAILY. 10/09/2013 latanoprost (XALATAN) 0.005 % ophthalmic solution Place 1 Drop into both eyes daily. 10/09/2013 brimonidine (ALPHAGAN P) 0.1 % ophthalmic solution Place 1 Drop into both eyes every 8 hours. 10/09/2013 dorzolamide-timolol (COSOPT) 2-0.5 % ophthalmic solution Place 1 Drop into both eyes 2 times daily. 10/09/2013 METHAZOLAMIDE MISC by left lower eyelid route 3 times daily. 10/09/2013 added in this encounter Active and Recently Administered Medications Times are shown in EDT. Continuous Medication Order 10/07/2013 10/08/2013 10/09/2013 lactated ringers (LR) infusion (CANCELED) 30 mL/hr, intravenous, CONTINUOUS, Starting on Tue10/09/13 at 0800, Until Tue10/09/13 at 1349, Routine, Pre-op Rx Needs Approval 2797 (New Bag - Prov ider: Italia Coronado RN) lactated ringers (LR) infusion (CANCELED) at 75 mL/hr, intravenous, CONTINUOUS, Starting on Tue10/09/13 at 1100, Until Tue10/09/13 at 1349, Routine, Recovery (only) 1115 (New Bag - Prov ider: Milagros Reyes RN) PRN Medication Order 10/07/2013 10/08/2013 10/09/2013 ofloxacin (OCUFLOX) 0.3 % ophthalmic solution 1 Drop (COMPLETED) 1 Drop, left eye, PRE-OP Q 5 MINUTES, 3 doses, Starting on Tue10/09/13 at 0731, Until Tue10/09/13 at 0852, vitreoretinal surgery, Routine, Pre-op Rx Needs Approval 0850 (Given - Provid er: Shanda Conde RN)0851 (Given - Provider: Shanda Conde RN)0852 (Given - Provider: Shanda Conde RN) phenylephrine (MYDFRIN) 2.5 % ophthalmic solution 1 Drop (COMPLETED) 1 Drop, left eye, PRE-OP Q 5 MINUTES, 3 doses, Starting on Tue10/09/13 at 0731, Until Tue10/09/13 at 0855, Irritation, vitreoretinal surgery, Routine, Pre-op Rx Needs Approval 0853 (Given - Provid er: Shanda Conde RN)0854 (Given - Provider: Shanda Conde RN)0855 (Given - Provider: Shanda Conde RN) tropicamide (MYDRIACYL) 1 % ophthalmic solution 1 Drop (COMPLETED) 1 Drop, left eye, PRE-OP Q 5 MINUTES, 3 doses, Starting on Tue10/09/13 at 0731, Until Tue10/09/13 at 0858, vitreoretinal surgery, Routine, Pre-op Rx Needs Approval 0856 (Given - Provid er: Shanda Conde RN)0857 (Given - Provider: Shanda Conde RN)0858 (Given - Provider: Shanda Conde RN) documented in this encounter Orders Medications Ordered That Josh ht Not Have Been Administered Count Last Ordered Date First Ordered Date acetaminophen (TYLENOL) tablet 325 mg 1 atropine 0.1 mg/mL syringe 0.5 mg 1 014 fentaNYL citrate (PF) 50 mcg /mL injection 25-100 mcg 1 10/09/2013 nalOXone (NARCAN) injection 0.2 mg 1 2013 ondansetron (PF) (ZOFRAN) injection 2 mg 1 10/09/2013 Admission Count Last Ordered Date First Orde red Date STATUS: OUTPATIENT SURGICAL OP BED/SERVICES 1 10/09/2013 Transfer Count Last Ordered Date First Orde red Date NOTIFY PPS OF DISCHARGE COMPLETE 1 10/10/19 14 Discharge Count Last Ordered Date First Orde red Date DISCHARGE PATIENT 1 10/09/2013 documented in this encounter Care Teams Heel Sprayer Relationship Specialty Start Date End Date Froy Monroe MD PCP - General 12/11/12 documented as of this encounter
--- OUTSIDE RECORDS SUMMARY | 2024-01-23 15:49 | XMS_ITS | Encounter Summary ---
[facility] Organization [facility] [place] [address] Care Team Providers Care Bank Examiner Name Role Phone Froy Monroe MD Primary Care Provider + Reason for Visit * Auth/Cert - Closed Specialty Diagnoses / Procedures Referred By Jeannie t Referred To Contact Diagnoses Calculus of kidney LEFT RENAL STONES Procedures PRO FRAGMENT KIDNEY STONE/ ESWL E.S.W.L. Referral ID Status Reason Start Date Expiration Date Visits Re quested Visits Authorized [id number] Closed 1 1 Encounter Details Date Type Department Care Team (Latest Contact Info) Description 01/24/2015 9:19 AM EDT - 01/24/2015 1:10 PM EDT Hospital Encounter [facility] [place] [id number] Carley Goodman Jr., MD [facility] [place] [address] Nephrolithiasis Discharge Disposition: Home Social History Tobacco Use Types Packs/Day Years Used Date Smoking Tobacco: Never Sex and Gender Information Value Date Recorded Sex Assigned at Not on file Gender Identity Not on file Sexual Orientation Not on file documented as of this encounter Last Filed Vital Signs Vital Sign Reading Time Taken Comments Blood Pressure 100/49 01/24/2015 12:33 PM EDT Pulse 56 01/24/2015 12:33 PM EDT Temperature 36.2 ??C (97.2 ??F) 01/24/2015 12:22 PM E DT Respiratory Rate 18 01/24/2015 12:33 PM EDT Oxygen Saturation 95% 01/24/2015 12:49 PM EDT Inhaled Oxygen Concentration - - [...] closest emergency room or call the hospital warping mill operator at [phone] and ask for physician drone operator covering for your physician. Questions or problems after 5pm or on a weekend: Call the [facility] warping mill operator at and ask for the physician drone operator covering for your doctor. * Patient Instructions* [...] to urinate please call our office at [phone] before 5PM or [phone] after hours. Please strain your urine with [...] side pain, you should call our office [phone] before 5PM or [phone] after hours. Call Doctor for: Please call if you have copious blood in your urine, severe back or side pain, pain not controlled by pain medications, persistent nausea and vomiting, or for any fevers greater [id number] F. The number for questions is [phone] before 5 PM weekdays and [phone] after 5 PM and weekends. Prescriptions: You [...] will be mailed to you. Please call [phone] (clinic number forappointments) to confirm date and [...] Trini Escalona - 01/24/2015 12:09 PM EDT [facility] Operative Note Patient Name: Jerad Jauregui : [id number] MR#: [id number] Case Date: 01/24/2015 Surgeon: Surgeon(s) and Role: * Carley Goodman Jr., MD - Primary * Trini Escalona MD - Resident-Surgeon Julio Preoperative diagnosis: LEFT RENAL STONES Postoperative diagnosis: LEFT RENAL STONES Procedure(s): E.S.W.L. Findings: 1. 8mm Left renal stone seen on rubber tire curer fluoroscopy and ultrasound at beginning of procedure [...] position. The stone was readily visulized on rubber tire curer images and ultrasound. General anesthesia was then [...] Operative Note Patient Name: Jerad Jauregui : [id number] MR#: [id number] Case Date: 01/24/2015 Surgeon: Surgeon(s) and Role: * Carley Goodman Jr., MD - Primary * Trini Escalona MD - Resident-Surgeon Julio Preoperative diagnosis: LEFT RENAL STONES Postoperative diagnosis: LEFT RENAL STONES Procedure(s): E.S.W.L. Anesthesia: General Findings: 1. 8mm Left renal stone seen on rubber tire curer fluoroscopy and ultrasound at beginning of procedure [...] 8:15 AM EDT Office Visit Dermatology at [place] [address] [place] [phone] Cortez Bey MD [address], [place] [address] Scheduled Orders Name Type Priority Associated Diagnoses [...] 03:51 pm) Patient Info ID #: ? [id number] ?: ??[birth year] (59 yrs) Name: ? JERAD JAUREGUI ? Visit Date: 04/15/2015 02:33 pm Performed By Performed By: ? Montse Salinas RDMS Attending: ?Paty CARIAS, Jennifer Hutchinson Associate: ?Saida CARIAS, [facility] [place] Referred By: ?CARLEY GOODMAN MD Service(s) Provided ??URETRO - Retroperitoneal Complete - [id number] ? [id number] Indications ??history of nephrolithiasis, s/p left ESWL, [...] 04/15/2015 03:51 pm) Patient Info ID #: [id number] : [birth year] (59 yrs) Name: JERAD JAUREGUI Visit Date: 04/15/2015 02:33 pm Performed By Performed By: Montse Salinas RDMS Attending: Jennifer Newman MD Associate: Linda Cintron MD Referred By: CARLEY GOODMAN MD Service(s) Provided URETRO - Retroperitoneal Complete - [id number] Indications history of nephrolithiasis, s/p left ESWL, [...] 04/15/2015 03:51 pm Carley Goodman Jr., MD IMG US GEN ORDERAB LES * XR Abdomen [...] in dextrose 5% 200mL 400 mg, Intravenous, PR INTERN TO O.R., 1 dose, On Tue01/24/15 at [...] dextrose 5% 200mL (CANCELED) 400 mg, Intravenous, PR INTERN TO O.R., 1 dose, On Tue01/24/15 at [...] CRNA) documented in this encounter Care Teams Bank Examiner Relationship Specialty Start Date End Date Froy Monroe MD [address] [place] [address] PCP - General 02/17/10 10/26/16 documented as of this encounter
--- OUTSIDE RECORDS SUMMARY | 2024-01-23 15:49 | XMS_ITS | Encounter Summary ---
Author Organization [facility] [place] [address] Care Team Providers Care Agile Test Lead Name Role Phone Froy Monroe MD Primary Care Provider + Reason for Visit * Reason Comments Skin Check Encounter Details Date Type Department Care Team (Late st Contact Info) Description 12/30/2015 4:00 PM EDT Office Visit Dermatology at [address] [phone] Cortez Bey MD [address] [facility] [facility] [place] [address] Basal cell carcinoma Social History Tobacco Use [...] Progress Notes * Cortez Bey MD - 12/30/2015 4:00 PM EDT PROBLEM: 1. One year skin checkup. 2. History of BCCA of left distal arm, excised 11/2013 after prior recurrence. 3. Jerad follows up for repeat skin checkup. He is doing well. He has not noted any particular lesions of concern. Physical examination shows excellent healing without evidence of recurrence at the BCCA tumor site on the left distal arm. Examination of the face, the chest and the back, the hands, arms, forearms, thighs, and the calves is unremarkable. He has a number of small seborrheic keratoses on the arms and legs and stucco keratoses as well. A/P: 1. Benign skin examination. a. Patient reassured about benign skin examination. b. Recommend that I see him again in another year for repeat check. c. We then discussed that if doing well, at that point we will just have him follow up on a p.r.n. basis. d. Continue sun avoidance precautions. cc: Froy Monroe MD documented in this encounter Plan of Treatment Upcoming Encounters Date Type Department Care Team (Late st Contact Info) Description 01/25/2025 8:15 AM EDT Office Visit Dermatology at [place] [address] [place] [address] Cortez Bey MD [address] [facility] [facility], [place] [address] documented as of this encounter Visit Diagnoses Diagnosis Basal cell carcinoma Basal cell carcinoma of skin, site unspecified documented in this encounter Care Teams Agile Test Lead Relationship Specialty Start Date End Date Froy Monroe MD [address] [place] [address] PCP - General 02/17/10 10/26/16 documented as of this encounter
--- OUTSIDE RECORDS SUMMARY | 2024-01-23 15:49 | XMS_ITS | Encounter Summary ---
Author Organization [facility] Address [facility] [place] [address] Care Team Providers Care Airframe Technical Officer Name Role Phone Froy Monroe MD Primary Care Provider + Reason for Visit * Reason Comments Medication Refill Encounter Details Date Type Department Care Team (Late st Contact Info) Description 01/19/2016 [place] [address] Giles Fitzgerald MD [facility] [place] [address] Primary open-angle glaucoma, left eye, mild stage [...] 8:15 AM EDT Office Visit Dermatology at [place] [address] [facility] [phone] Cortez Bey MD [address] [facility] [place] [address] documented as of this encounter Visit Diagnoses Diagnosis Primary open-angle glaucoma, left eye, mild stage documented in this encounter Care Teams Airframe Technical Officer Relationship Specialty Start Date End Date Froy Monroe MD [address] [place] [address] PCP - General 02/17/10 10/26/16 documented as of this encounter
--- OUTSIDE RECORDS SUMMARY | 2024-01-23 15:49 | XMS_ITS | Encounter Summary ---
Author Organization [facility] Address [facility] [place] [address] Care Team Providers Care Diesel Mechanic Helper Name Role Phone Froy Monroe MD Primary Care Provider + Encounter Details Date Type Department Care Team (Late st Contact Info) Description 08/09/2013 [place] [address] Shantanu Goodman Jr., MD [facility] [place] [address] Social History Tobacco Use Types Packs/Day Years Used Date Smoking Tobacco: Never Sex and Gender Information Value Date Recorded Sex Assigned at Not on file Gender Identity Not on file Sexual Orientation Not on file documented as of this encounter Plan of Treatment Upcoming Encounters Date Type Department Care Team (Late st Contact Info) Description 01/25/2025 8:15 AM EDT Office Visit Dermatology at [place] [address] [facility] [place] [address] Cortez Bey MD [address] [facility] [place] [address] documented as of this encounter Procedures Procedure Name Priority Date/Time Associated Diagnosis Comments FILM LIBRARY STORAGE ONLY DX ABDOMEN Routine 08/09/2013 9:31 AM EDT documented in this encounter Results * Film Library- Storage only DX Abdomen (08/09/2013 9:31 AM EDT) Anatomical Region Laterality Modality Other 08/09/2013 9:31 AM EDT Narrative 06/12/2014 9:36 AM EDT This is a Non-reportable exam Procedure Note MARIANNE, UNSIGNED REPORT - 06/12/2014 This is a Non-reportable exam Shantanu Goodman Jr., MD IM FILM LIBRARY O RDERABLES documented in this encounter Visit Diagnoses Not on filedocumented in this encounter Care Teams Diesel Mechanic Helper Relationship Specialty Start Date End Date Froy Monroe MD [address] [place] [address] PCP - General 02/17/10 10/26/16 documented as of this encounter
--- OUTSIDE RECORDS SUMMARY | 2024-01-23 15:49 | XMS_ITS | Referral Summary ---
Author Organization [facility] Address [address] [place] [address] Care Team Providers Care Paraprofessional Aide Teacher Name Role Phone Froy Monroe MD Primary [...] 23.75 10/07/2013 1504 EDT Plan of Treatment Not on file Advance Directives For more information, please contact: [phone] Documents on File Type Date Recorded Patient Maintenance Equipment Operator Expl anation Advance Directive 05/05/2010 22:58 AD * Full Code (Latest Code Status on File) Date Activated Date Inactivated Comments 10/09/2013 7:41 10/09/2013 13:49 * Full Code Date Activated Date Inactivated Comments 03/06/2013 10:49 03/06/2013 16:55 * Full Code Date Activated Date Inactivated Comments 01/30/2013 7:59 01/30/2013 15:07 Care Teams Paraprofessional Aide Teacher Relationship Specialty Start Date End Date Froy Monroe MD PCP - General 12/11/12
--- OUTSIDE RECORDS SUMMARY | 2024-01-23 15:49 | XMS_ITS | Encounter Summary ---
Author Organization [facility] Address [address] [place] [address] Care Team Providers Care Collection Systems Administrator Name Role Phone Froy Monroe MD Primary Care Provider U navailable Encounter Details Date Type Department Care Team (Latest Contact Info) Description 01/30/2013 Pre-Procedure Orders Encounter [facility] OPHTHALMOLOGY [address] [place], [place] [address] Sadiq Rubin MD [address] [place] [phone] Macular cyst, hole, or pseudohole of retina (Primary Dx) Social History Tobacco Use Types Packs/Day Years Used Date Smoking Tobacco: Never Assessed Sex and Gender Information Value Date Recorded Sex Assigned at Not on file Gender Identity Not on file Sexual Orientation Not on file documented as of this encounter Plan of Treatment Not on file documented as of this encounter Visit Diagnoses Diagnosis Macular cyst, hole, or pseudohole of retina- Primary documented in this encounter Care Teams Collection Systems Administrator Relationship Specialty Start Date End Date Froy Monroe MD PCP - General 12/11/12 documented as of this encounter
--- OUTSIDE RECORDS SUMMARY | 2024-01-23 15:49 | XMS_ITS | Encounter Summary ---
Author Organization [facility] [place] [address] Care Team Providers Care Automation Qa Lead Name Role Phone Froy Monroe MD Primary Care Provider + Reason for Visit * Reason Comments Glaucoma POAG,OS Mild Stage Encounter Details Date Type Department Care Team (Late st Contact Info) Description 10/10/2015 12:45 PM EDT Office [place] [address] Micheline Fitzgerald MD [facility] [place] [address] Primary open angle glaucoma of left eye, [...] * Patient Instructions* Micheline Fitzgerald MD - 10/10/2015 12:45 PM EDT HPI Glaucoma Additional comments: POAG,OS Mild Stage Comments 6 wk IOP check s/p medication change due to drop sensitivity OU: Pt reports his feels rednesshas improved x last visit. Mitra Agee, COT, OSC has performed the documentation for this encounter in the presence of andacting as a scribe for MICHELINE FITZGERALD MD. I performed the above scribed service and agree with the accuracy of the documentation in this encounter. Last edited by Micheline Fitzgerald MD on 10/10/2015 1:07 PM. (History) Open-angle glaucoma Assessment: POAG OS - less irritation after drop changes and IOP is much improved Plan: Continue current medications Follow up in 6 mos HVF / OCT For additional information about eye conditions, visit the Eye Facts portion of my website at http://OmniGuide/eye-education/ and I also started a Glaucoma Patient Group on inexio (htt ps://Sym[employer]z (dba [employer]/groups/glaucomapatientgroup) for patients to seek help from one another. (Search for Glaucoma Patient Group and then ask to join.) documented in this encounter Progress Notes * Micheline Fitzgerald MD - 10/10/2015 12:45 PM EDT Open-angle glaucoma Assessment: POAG OS - less irritation after drop changes and IOP is much improved Plan: Continue current medications Follow up in 6 mos HVF / OCT documented in this encounter Miscellaneous Notes * Assessment & Plan Note - Micheline Fitzgerald MD - 10/10/2015 1:11 PM EDT Associated Problem(s): Open-angle glaucoma Assessment: POAG OS - less irritation after drop changes and IOP is much improved Plan: Continue current medications Follow up in 6 mos HVF / OCT documented in this encounter Plan of Treatment Upcoming Encounters Date Type Department Care Team (Late st Contact Info) Description 01/25/2025 8:15 AM EDT Office Visit Dermatology at [place] [address] [facility] [place] [address] Cortez Bey MD [address] [facility] [address] [place] [address] documented as of this encounter Visit Diagnoses Diagnosis Primary open angle glaucoma of left eye, mild stage documented in this encounter Care Teams Automation Qa Lead Relationship Specialty Start Date End Date rFoy Monroe MD [address] [place] [address] PCP - General 02/17/10 10/26/16 documented as of this encounter
--- OUTSIDE RECORDS SUMMARY | 2024-01-23 15:49 | XMS_ITS | Encounter Summary ---
Author Organization [facility] [place] [address] Care Team Providers Care Cloth Finishing Range Tender Name Role Phone Froy Monroe MD Primary Care Provider + Reason for Visit * Reason Comments Skin Check Encounter Details Date Type Department Care Team (Late st Contact Info) Description 07/12/2012 1:45 PM EDT Office Visit Dermatology [address] [place] [address] [address] [place] [address] Cortez Bey MD [address] [facility] [place] [address] Dermatofibroma (Primary Dx) Social History Tobacco Use Types Packs/Day Years Used Date Smoking Tobacco: Never Sex and Gender Information Value Date Recorded Sex Assigned at Not on file Gender Identity Not on file Sexual Orientation Not on file documented as of this encounter Progress Notes * Cortez Bey MD - 07/12/2012 2:22 PM EDT Problem: Left arm lesion. Jerad is a 56-year-old gentleman who is referred today by Dr. Monroe for evaluation of a lesion on the left arm. It has been there for a number of months but does not seem to heal and go away. He thinks it started last summer and may have arisen after a small cut or scrape at this site. Physical examination reveals a pleasant, lanky, tall, 56-year-old gentleman who has a 5-mm, firm, erythematous papule on the left distal flexure of arm just above the antecubital fossa. It is somewhat inflamed, but appears to be consistent with a dermatofibroma. Assessment and Plan: Probable dermatofibroma. a. To confirm clinical impression and also remove this lesion, which is often rubbed and irritated, today a 5-mm punch biopsy was utilized to remove it with closure with two 4-0 Ethilon sutures. b. I recommended return to the clinic in 10 to 14 days for suture removal and biopsy results, either July 24 or 2012. c. I reassured him about the benign appearance of this, and I will have biopsy results for him when he returns to clinic. Copy: Froy Monroe M.D. documented in this encounter Procedure Notes * Provider, Scanning - 07/21/2012 9:36 AM EDTAssociated Order(s): SCAN DOC: SURGICAL PATHOLOGY documented in this encounter Plan of Treatment Upcoming Encounters Date Type Department Care Team (Late st Contact Info) Description 01/25/2025 8:15 AM EDT Office Visit Dermatology at [place] [address] [place] [phone] Cortez Bey MD [address] [facility] [place] [address] documented as of this encounter Procedures Procedure Name Priority Date/Time Associated Diagnosis Comments SURGICAL PATHOLOGY SCAN 07/21/2012 9:36 AM EDT documented in this encounter Results * SCAN DOC: SURGICAL PATHOLOGY (07/21/2012 9:36 AM EDT) Narrative 07/21/2012 9:36 AM EDT Procedure Note Provider, Scanning - 07/21/2012 9:36 AM EDT Scanning Provider MEDIA MGR SCAN EXT O RDR/RSLT documented in this encounter Visit Diagnoses Diagnosis Dermatofibroma- Primary Benign neoplasm of skin, site unspecified documented in this encounter Care Teams Cloth Finishing Range Tender Relationship Specialty Start Date End Date Froy Monroe MD [address] [place] [address] PCP - General 02/17/10 10/26/16 documented as of this encounter
--- OUTSIDE RECORDS SUMMARY | 2024-01-23 15:49 | XMS_ITS | Encounter Summary ---
Author Organization [facility] Address [facility] [place] [address] Care Team Providers Care Strip Tank Tender Name Role Phone Froy Monroe MD Primary Care Provider + Reason for Visit * Reason Comments Nephrolithiasis Encounter Details Date Type Department Care Team (Late st Contact Info) Description 04/15/2015 3:40 PM EST [place] [address] Carley Crockett Jr., MD [facility] [address] Nephrolithiasis Social History Tobacco Use Types Packs/Day Years Used Date Smoking Tobacco: Never Sex and Gender Information Value Date Recorded Sex Assigned at Not on file Gender Identity Not on file Sexual Orientation Not on file documented as of this encounter Last Filed Vital Signs Vital Sign Reading Time Taken Comments Blood Pressure 129/77 04/15/2015 2:57 PM EST Pulse 74 04/15/2015 2:57 PM EST Temperature 36.5 ??C (97.7 ??F) 04/15/2015 2:57 PM ES T Respiratory Rate - - Oxygen Saturation 99% 04/15/2015 2:57 PM EST Inhaled Oxygen Concentration - - Weight 83.9 kg (185 lb) 04/15/2015 2:57 PM EST Height 185.4 cm (6' 1) 04/15/2015 2:57 PM EST Body Mass Index 24.41 04/15/2015 2:57 PM EST documented in this encounter Progress Notes * Carley Crockett Jr., MD - 04/15/2015 2:50 PM EST HPI: Jerad Jauregui is a 59 y.o. man who returns for urologic follow up regarding bilateral nephrolithiasis and an enlarged prostate. He underwent left renal SWL 01/24/15. Postoperatively, he has been well. He has long history of recognized enlarged prostate, managed with flomax x 15 years (Dr Valadez). He had an elevated PSA and had biopsy (10/2008) that was reportedly negative. He had a follow up biopsy for prostate asymmetry (01/06) that was also negative. Since then, he has opted not to continue withprostate cancer screening and has declined KIRK here. His LUTS are tolerable with medical managementwith flomax and finasteride. He subsequently saw Dr Linda in 2012 for bilateral nephrolithiasis. He underwent bilateral SWL in 07/2013. He had residual left renal stones. U/S 11/2014 suggested large left renal pelvic stone although f/u CT revealed this to actually be 2 adjacent stones, maximally 8mm. We had reviewed mgmt options and he elected to proceed with left renal SWL Since left renal SWL, he has passed only a few very small fragments. However, he remains comfortable, denies any abdominal or flank pain, flank ecchymosis, or new complaints. Review of Systems Gastrointestinal: Negative for abdominal pain. Genitourinary: Negative for flank pain and hematuria. 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 He appears well- developed and well-nourished. No distress. HENT: Head: Normocephalic and atraumatic. Abdominal: Soft. He exhibits no distension. There is no tenderness. There is no rebound. Genitourinary: No CVA tenderness to percussion bilaterally Imaging Studies: I independently reviewed the renal u/s from today, with previously noted 2.5cm left renal pelvic stone (Overestimated when compared with CT) now measured at approx 1.5cm, without evidence of hydronephrosis or hydroureter Impression/Plan: 1) left renal stones -- We discussed that residual stone after 2 SWL are less likely to respond to further SWL. We reviewed mgmt options of active surveillance, URS, PCNL, and repeat SWL. He opts to monitor for now, plan re- evaluation and consideration of URS this summer. 2)LUTS. Stable, with minimal bother. We again discussedmgmt options including surgical prostate resection and continued medical management. He wishes to continue with current course of tamsulosin andproscar. 3)Prostate cancer screening. He had decided previously with Dr Valadez and Dr Linda to hold off on further screening. documented in this encounter Plan of Treatment Upcoming Encounters Date Type Department Care Team (Late st Contact Info) Description 01/25/2025 8:15 AM EDT Office Visit Dermatology at [place] [address] [facility] [place] [phone] Cortez Bey MD [address] [facility] [address] [place] [address] documented as of this encounter Procedures Procedure Name Priority Date/Time Associated Diagnosis Comments KIDNEY STONE ANALYSIS Routine 04/15/2015 4:03 PM EST Nephrolithiasis documented in this encounter [...] 02:50 pm) Patient Info ID #: ? [id number] ?: ??[birth year] (59 yrs) Name: ? JERAD JAUREGUI ? Visit Date: 09/01/2015 02:10 pm Performed By Performed By: ? Brad VALDOVINOS, Montse Attending: ?Lee CARIAS, Adriana Alvarez Associate: ?Stan CARIAS, David Zuniga Referred By: ?CARLEY CROCKETT MD Service(s) Provided ??URETRO - Retroperitoneal Complete - [id number] ? [id number] Indications ??? stones Comparison 04/15/15 Right Kidney [...] 09/01/2015 02:50 pm) Patient Info ID #: [id number] : [birth year] (59 yrs) Name: JERAD JAUREGUI Visit Date: 09/01/2015 02:10 pm Performed By Performed By: Montse Salinas RDMS Attending: Adriaan Howard MD Associate: David Pierce MD Referred By: CARLEY CROCKETT MD Service(s) Provided URETRO - Retroperitoneal Complete - [id number] Indications ? stones Comparison US 04/15/15 Right [...] Signed Final Report 09/01/2015 02:50 pm Carley Crockett Jr., MD [facility] GEN ORDERAB LES * Kidney Stone Analysis (04/15/2015 4:03 PM EST) Pathologist [facility] Kidney Stone Analysis (MAY) Test ?Result ?Flag ??Unit ??RefValue Kidney Stone Analysis ??Source: ? Bladder ??1st Constituent: ?SEE COMMENTS Not a kidney stone. The sample does not have the appearance of a kidney stone; it appears to be foreign material. Test Performed by: [facility] - [address] [address] Security Services Specialist: Luis Fernando Millan II, M.D., Ph.D. YEVGENIY RUBIO Calculus specimen (specimen) 04/15/2015 4:03 PM EST 04/16/2015 8:51 AM EST Narrative Resulting Agency Comment Spec In Lab Carley Crockett Jr., MD LAB SEND OUT ORDER BESSIE YEVGENIY RUBIO documented in this encounter Visit Diagnoses Diagnosis Nephrolithiasis Calculus of kidney Nephrolithiasis Calculus of kidney documented in this encounter Care Teams Strip Tank Tender Relationship Specialty Start Date End Date Froy Monroe MD [address] [place] [address] PCP - General 02/17/10 10/26/16 documented as of this encounter
== END 2024-01-23 16:00 ==
LOC: DI 15:45
PROVIDERS: PCP Family Medicine; Visit Provider Nurse Practitioner Family
DX: J18.9 Pneumonia, unspecified organism (principal)
CPT/HCPCS: 71046

== ENCOUNTER 2024-01-23 16:46 | Outpatient (REF) | payer MEDICARE, BC, SELFPAY ==
[2024-01-23 20:51] LABS: Source Nasal/Nares
[2024-01-23 21:35] LABS: COVID-19 PCR Negative (Negative)
== END 2024-01-23 16:47 | disposition home or self-care (01) ==
LOC: LBN 16:46
PROVIDERS: PCP Family Medicine; Visit Provider Nurse Practitioner Family
DX: R50.9 Fever, unspecified (principal)
CPT/HCPCS: 87635

== ENCOUNTER 2024-10-16 12:47 | Outpatient (REF) | payer MEDICARE, BC, SELFPAY ==
[2024-10-16 15:13] LABS: HCT 44.8 % (40.0-50.0); HGB 14.7 g/dL (13.5-17.5); MCH 30.1 pg (27.0-33.0); MCHC 32.8 % (32.0-36.0); MCV 92 fL (80-95); MPV 10.8 fL (8.0-11.0); Platelet Count 193 10^3/uL (130-400); RBC 4.89 10^6/uL (4.36-5.78); RDW 12.3 % (11.8-14.1); RDW-SD 41.1 fL; WBC 6.52 10^3/uL (4.4-10.8)
[2024-10-16 15:30] LABS: Hemoglobin A1C 5.5 % (<5.7)
[2024-10-16 15:56] LABS: ALT 59 U/L (16-63); AST 26 U/L (15-37); Albumin 3.9 g/dL (3.4-5.0); Alkaline Phosphatase 74 U/L (46-116); Anion Gap 6.8 mmol/L (3-11); BUN 15 mg/dL (7-18); Bilirubin, Total 1.0 mg/dL (0.2-1.0); CO2 28.2 mmol/L (21.0-32.0); Calcium 9.5 mg/dL (8.5-10.1); Calculated LDL 135 mg/dL (<100); Chloride 105 mmol/L (98-107); Cholesterol 228 mg/dL (<200); Estimated GFR 91.31 (mL/min/1.73m2); Glucose 106 mg/dL (74-106); HDL Cholesterol 51 mg/dL (>or=40); Potassium 4.2 mmol/L (3.5-5.1); Sodium 140 mmol/L (136-145); Total Protein 6.9 g/dL (6.4-8.2); Triglyceride 210 mg/dL (<150); Vitamin D 25 Total 60 ng/mL (30-100)
== END 2024-10-16 12:48 | disposition home or self-care (01) ==
LOC: NCHCN 12:47
PROVIDERS: PCP Family Medicine; Visit Provider Nurse Practitioner Family
DX: E66.3 Overweight (principal); Z00.00 Encounter for general adult medical examination without abnormal findings; E55.9 Vitamin D deficiency, unspecified
CPT/HCPCS: 80053; 80061; 82306; 85027; 83036